=== PATIENT | female | born 1960 | race Two or more races ===

== ENCOUNTER 2020-12-30 13:48 | Inpatient (IN) | payer MEDICAID, OTHER ==
[~2020-12-30] VITALS: Ht 157.5 cm; Wt 91.8 kg
[2020-12-30 14:27] LABS: Basophils # (auto) 0 10 ^3/uL (0-0.2); Lymphocytes # (auto) 1.2 10 ^3/uL (0.4-5.4); Monocytes # (auto) 0.4 10 ^3/uL (0-1.3); Neutrophils % (auto) 61.1 % (37.0-80.0)
[2020-12-30 14:29] LABS: Basophils % (auto) 0.5 % (0.0-2.0); Eosinophils # (auto) 0.1 10 ^3/uL (0-0.8); Eosinophils % (auto) 1.2 % (0.0-7.0); Lymphocytes % (auto) 27.6 % (10.0-50.0); Mean Corpuscular Hemoglobin 33.1 pg (28.0-32.0); Mean Corpuscular Hgb Conc. 33.1 g/dL (32.0-36.0); Mean Corpuscular Volume 99.8 fL (80.0-100.0); Monocytes % (auto) 9.6 % (0.0-12.0); Neutrophils # (auto) 2.8 10 ^3/uL (1.6-8.6); Nucleated Red Blood Cells % 0.1 %; Red Blood Cells 2.11 10^6/uL (4.0-5.20); White Blood Cell 4.5 10^3/uL (4.4-10.8)
[2020-12-30 14:47] LABS: Red Cell Distribution Width 21.3 % (11.8-14.3)
[2020-12-30 14:48] LABS: Albumin 2.8 g/dL (3.4-5.0); Calcium 8.5 mg/dL (8.5-10.1); Potassium 4.9 mmol/L (3.5-5.1)
[2020-12-30 14:54] LABS: BUN/Creatinine Ratio 9.2; Bilirubin, Total 0.5 mg/dL (0.2-1.0); CRP High Sensitivity 0.49 mg/dL (< 0.3); Total Protein 6.4 g/dL (6.4-8.2)
[2020-12-30] MEDS ORDERED: ACETAMINOPHEN 500 MG TAB PO PRN (20:45)
[2020-12-30] MEDS ORDERED: DOCUSATE SOD 100 MG CAP PO PRN (20:45)
[2020-12-30] MEDS ORDERED: ALBUTEROL SULF HFA 90MCG INH 200DOSE IN PRN (20:45)
[2020-12-30] MEDS ORDERED: ACETAMINOPHEN 325 MG TAB PO PRN ×2 (20:45)
[2020-12-30] MEDS ORDERED: MORPHINE SULFATE INJECTION 2 MG/ML SYRG IV PRN (20:45)
[2020-12-30] MEDS ORDERED: NITROGLYCERIN 0.4 MG SL TAB SL PRN (20:45)
[2020-12-30] MEDS ORDERED: DEXTROSE (50%) 50ML SYRG IV PRN (20:45)
[2020-12-30] MEDS: DOXYCYCLINE 100MG/250ML 250 ML IV SCH (23:55)
[2020-12-31] MEDS: InsuLIN REG 1unit/0.01ml Soln (100units/ml) SC SCH ×5 (00:03→21:46)
[2020-12-31] MEDS: ACCU-CHEK COMFORT CURVE STRIP VI SCH ×5 (00:03→21:44)
[2020-12-31] MEDS: MORPHINE SULFATE 4 MG/ML SYR/VIAL IV PRN ×4 (01:02→19:48)
[2020-12-31 03:42] VITALS: BP 135/90
[2020-12-31] MEDS: HYDROcodone-ACET 5/325MG TAB PO PRN ×2 (03:45→08:00)
[2020-12-31] MEDS: ONDANSETRON HCL 4 MG/2 ML VIAL IV PRN ×2 (06:23→15:23)
[2020-12-31 07:45] VITALS: BP 163/105
[2020-12-31 10:08] LABS: Albumin 2.8 g/dL (3.4-5.0); Basophils # (auto) 0 10 ^3/uL (0-0.2); Basophils % (auto) 0.8 % (0.0-2.0); Calcium 8.5 mg/dL (8.5-10.1); Eosinophils # (auto) 0.1 10 ^3/uL (0-0.8); Eosinophils % (auto) 1.7 % (0.0-7.0); Hematocrit 23.8 % (36.0-46.0); Hemoglobin 8.1 g/dL (12.2-16.2); Lymphocytes # (auto) 1.3 10 ^3/uL (0.4-5.4); Lymphocytes % (auto) 26.5 % (10.0-50.0); Mean Corpuscular Hemoglobin 33.7 pg (28.0-32.0); Mean Corpuscular Hgb Conc. 34.1 g/dL (32.0-36.0); Mean Corpuscular Volume 98.9 fL (80.0-100.0); Monocytes # (auto) 0.4 10 ^3/uL (0-1.3); Monocytes % (auto) 8.6 % (0.0-12.0); Neutrophils % (auto) 62.4 % (37.0-80.0); Nucleated Red Blood Cells % 0.2 %; Potassium 5.2 mmol/L (3.5-5.1); Red Cell Distribution Width 20.1 % (11.8-14.3); White Blood Cell 4.9 10^3/uL (4.4-10.8)
[2020-12-31 10:11] LABS: Bilirubin, Total 0.6 mg/dL (0.2-1.0); Total Protein 6.7 g/dL (6.4-8.2)
[2020-12-31] MEDS: DOXYCYCLINE 100MG/250ML 250 ML IV SCH ×2 (10:59→21:44)
[2020-12-31] MEDS: CHOLECALCIFEROL (VITD3) 2,000 UNIT CAP/TAB PO SCH (11:00)
[2020-12-31] MEDS: ASCORBIC ACID 1,000 MG TAB PO SCH (11:00)
[2020-12-31] MEDS: MULTIPLE VITAMIN TAB PO SCH (11:00)
[2020-12-31] MEDS ORDERED: DEXTROSE (50%) 50ML SYRG IV ONE (11:15)
[2020-12-31] MEDS ORDERED: BUMETANIDE 2.5mg/10ml (0.25 mg/ml) INJ IV ONE (11:15)
[2020-12-31] MEDS ORDERED: CALCIUM GLUC 1,000mg/50ml-NS 50 ML IV ONE (11:15)
[2020-12-31] MEDS ORDERED: InsuLIN REG 1unit/0.01ml Soln (100units/ml) IV ONE (11:15)
[2020-12-31] MEDS: SODIUM ZIRCONIUM CYCL 10 GM PAK PO SCH ×3 (12:18→21:44)
[2020-12-31] MEDS ORDERED: BUMETANIDE INJECTION 10 ML ONE (12:22)
[2020-12-31] MEDS ORDERED: hydrALAZINE HCL 20 MG/ML VL ONE (16:12)
[2020-12-31] MEDS: hydrALAZINE HCL 20 MG/ML VL IV PRN (16:15)
[2020-12-31 20:00] VITALS: BP 150/89
[2020-12-31 22:00] VITALS: BP 150/89
[2021-01-01] MEDS: MORPHINE SULFATE 4 MG/ML SYR/VIAL IV PRN ×5 (00:07→21:34)
[2021-01-01] MEDS: HYDROcodone-ACET 5/325MG TAB PO PRN ×4 (02:19→20:36)
[2021-01-01 05:00] VITALS: BP 144/84
[2021-01-01] MEDS: SODIUM ZIRCONIUM CYCL 10 GM PAK PO SCH ×3 (05:33→21:33)
[2021-01-01 06:12] LABS: Calcium 8.7 mg/dL (8.5-10.1); Potassium 4.9 mmol/L (3.5-5.1)
[2021-01-01 06:13] LABS: BUN/Creatinine Ratio 10.7
[2021-01-01] MEDS: ACCU-CHEK COMFORT CURVE STRIP VI SCH ×4 (06:17→21:33)
[2021-01-01] MEDS: InsuLIN REG 1unit/0.01ml Soln (100units/ml) SC SCH ×4 (06:17→21:49)
[2021-01-01] MEDS ORDERED: SODIUM CHL 0.9% 1000 ML BAG XX ONE (07:00)
[2021-01-01 09:00] VITALS: BP 144/91
[2021-01-01] MEDS: LEVOTHYROXINE SODIUM 100 MCG/5 ML INJ IV SCH (09:13)
[2021-01-01] MEDS: DOXYCYCLINE 100MG/250ML 250 ML IV SCH ×2 (09:13→21:32)
[2021-01-01] MEDS: ASCORBIC ACID 1,000 MG TAB PO SCH (09:14)
[2021-01-01] MEDS: MULTIPLE VITAMIN TAB PO SCH (09:14)
[2021-01-01] MEDS: CHOLECALCIFEROL (VITD3) 2,000 UNIT CAP/TAB PO SCH (09:14)
[2021-01-01] MEDS ORDERED: IOHEXOL 350 MG/ML 100ML IJ ONE (10:22)
[2021-01-01 13:00] VITALS: BP 146/89
[2021-01-01] MEDS ORDERED: BUMETANIDE 2.5mg/10ml (0.25 mg/ml) INJ IV ONE (13:45)
[2021-01-01 16:53] VITALS: BP 159/93
[2021-01-01] MEDS ORDERED: EPOETIN ALFA-EPBX 10,000 UNIT/1ML VIAL SC ONE ×2 (21:00)
[2021-01-01 22:00] VITALS: BP 139/80
[2021-01-02] MEDS: HYDROcodone-ACET 5/325MG TAB PO PRN ×4 (00:24→18:23)
[2021-01-02] MEDS: MORPHINE SULFATE 4 MG/ML SYR/VIAL IV PRN ×5 (01:43→20:36)
[2021-01-02 05:00] VITALS: BP 157/98
[2021-01-02 05:47] LABS: Eosinophils # (auto) 0.1 10 ^3/uL (0-0.8); Lymphocytes # (auto) 1.1 10 ^3/uL (0.4-5.4); Monocytes # (auto) 0.4 10 ^3/uL (0-1.3); Nucleated Red Blood Cells % 0.1 %
[2021-01-02 05:49] LABS: Basophils # (auto) 0 10 ^3/uL (0-0.2); Basophils % (auto) 0.9 % (0.0-2.0); Eosinophils % (auto) 1.8 % (0.0-7.0); Hematocrit 23.7 % (36.0-46.0); Hemoglobin 8.1 g/dL (12.2-16.2); Lymphocytes % (auto) 22.1 % (10.0-50.0); Mean Corpuscular Hemoglobin 33.3 pg (28.0-32.0); Mean Corpuscular Hgb Conc. 34.3 g/dL (32.0-36.0); Monocytes % (auto) 8.5 % (0.0-12.0); Neutrophils # (auto) 3.3 10 ^3/uL (1.6-8.6); Neutrophils % (auto) 66.7 % (37.0-80.0); Red Blood Cells 2.44 10^6/uL (4.0-5.20); Red Cell Distribution Width 19.1 % (11.8-14.3); White Blood Cell 4.9 10^3/uL (4.4-10.8)
[2021-01-02] MEDS: SODIUM ZIRCONIUM CYCL 10 GM PAK PO SCH (06:31)
[2021-01-02] MEDS ORDERED: SODIUM CHL 0.9% 1000 ML BAG XX ONE (07:00)
[2021-01-02] MEDS: InsuLIN REG 1unit/0.01ml Soln (100units/ml) SC SCH ×4 (07:00→21:41)
[2021-01-02] MEDS: ACCU-CHEK COMFORT CURVE STRIP VI SCH ×4 (07:02→21:33)
[2021-01-02 09:00] VITALS: BP 162/97
[2021-01-02] MEDS: LEVOTHYROXINE SODIUM 100 MCG/5 ML INJ IV SCH (09:03)
[2021-01-02] MEDS: DOXYCYCLINE 100MG/250ML 250 ML IV SCH ×2 (09:03→21:33)
[2021-01-02] MEDS: MULTIPLE VITAMIN TAB PO SCH (09:04)
[2021-01-02] MEDS: ASCORBIC ACID 1,000 MG TAB PO SCH (09:04)
[2021-01-02] MEDS: CHOLECALCIFEROL (VITD3) 2,000 UNIT CAP/TAB PO SCH (09:04)
[2021-01-02 10:22] LABS: Hepatitis A Ab IgM Negative; Hepatitis B Core IgM Negative; Hepatitis B Surface Antigen Negative (Negative); Hepatitis C Antibody Negative (Negative)
[2021-01-02 12:55] VITALS: BP 159/99
[2021-01-02 17:00] VITALS: BP 148/98
[2021-01-02] MEDS ORDERED: EPOETIN ALFA-EPBX 10,000 UNIT/1ML VIAL SC ONE ×2 (21:00)
[2021-01-02] MEDS: LACTULOSE 20Gm/30ML SOLN PO PRN (21:33)
[2021-01-02 22:00] VITALS: BP 150/88
[2021-01-03] MEDS: MORPHINE SULFATE 4 MG/ML SYR/VIAL IV PRN ×5 (01:13→20:52)
[2021-01-03 05:00] VITALS: BP 134/85
[2021-01-03 05:42] LABS: Basophils # (auto) 0 10 ^3/uL (0-0.2); Eosinophils # (auto) 0.1 10 ^3/uL (0-0.8); Hemoglobin 7.9 g/dL (12.2-16.2); Lymphocytes # (auto) 0.9 10 ^3/uL (0.4-5.4); Monocytes # (auto) 0.4 10 ^3/uL (0-1.3); Neutrophils # (auto) 4.1 10 ^3/uL (1.6-8.6); White Blood Cell 5.5 10^3/uL (4.4-10.8)
[2021-01-03 05:49] LABS: Basophils % (auto) 0.9 % (0.0-2.0); Eosinophils % (auto) 1.3 % (0.0-7.0); Lymphocytes % (auto) 15.7 % (10.0-50.0); Mean Corpuscular Hemoglobin 33.5 pg (28.0-32.0); Mean Corpuscular Hgb Conc. 34.4 g/dL (32.0-36.0); Mean Corpuscular Volume 97.3 fL (80.0-100.0); Monocytes % (auto) 7.1 % (0.0-12.0); Red Blood Cells 2.36 10^6/uL (4.0-5.20); Red Cell Distribution Width 18.9 % (11.8-14.3)
[2021-01-03 06:19] LABS: Potassium 4.4 mmol/L (3.5-5.1)
[2021-01-03] MEDS: ACCU-CHEK COMFORT CURVE STRIP VI SCH ×4 (06:19→21:59)
[2021-01-03] MEDS: InsuLIN REG 1unit/0.01ml Soln (100units/ml) SC SCH ×4 (06:19→21:58)
[2021-01-03 06:25] LABS: Albumin 2.6 g/dL (3.4-5.0); BUN/Creatinine Ratio 10.9; Calcium 8.7 mg/dL (8.5-10.1)
[2021-01-03 06:31] LABS: Bilirubin, Total 0.5 mg/dL (0.2-1.0); Total Protein 6.5 g/dL (6.4-8.2)
[2021-01-03 09:00] VITALS: BP 151/98
[2021-01-03] MEDS: LEVOTHYROXINE SODIUM 100 MCG/5 ML INJ IV SCH (10:08)
[2021-01-03] MEDS: ASCORBIC ACID 1,000 MG TAB PO SCH (10:09)
[2021-01-03] MEDS: CHOLECALCIFEROL (VITD3) 2,000 UNIT CAP/TAB PO SCH (10:09)
[2021-01-03] MEDS: MULTIPLE VITAMIN TAB PO SCH (10:09)
[2021-01-03] MEDS: DOXYCYCLINE 100MG/250ML 250 ML IV SCH ×2 (10:09→21:59)
[2021-01-03] MEDS: LACTULOSE 20Gm/30ML SOLN PO PRN (12:51)
[2021-01-03 13:00] VITALS: BP 151/90
[2021-01-03] MEDS: hydrALAZINE HCL 20 MG/ML VL IV PRN (16:22)
[2021-01-03] MEDS: ONDANSETRON HCL 4 MG/2 ML VIAL IV PRN (16:54)
[2021-01-03 17:00] VITALS: BP 154/102
[2021-01-03 22:00] VITALS: BP 129/67
[2021-01-04] MEDS: MORPHINE SULFATE 4 MG/ML SYR/VIAL IV PRN ×6 (00:32→23:22)
[2021-01-04] MEDS: HYDROcodone-ACET 5/325MG TAB PO PRN ×3 (01:58→21:46)
[2021-01-04 05:30] VITALS: BP 134/77
[2021-01-04] MEDS: InsuLIN REG 1unit/0.01ml Soln (100units/ml) SC SCH ×4 (06:29→22:00)
[2021-01-04] MEDS: ACCU-CHEK COMFORT CURVE STRIP VI SCH ×4 (06:29→21:46)
[2021-01-04 09:08] VITALS: BP 156/88
[2021-01-04] MEDS: MULTIPLE VITAMIN TAB PO SCH (10:11)
[2021-01-04] MEDS: ASCORBIC ACID 1,000 MG TAB PO SCH (10:11)
[2021-01-04] MEDS: CHOLECALCIFEROL (VITD3) 2,000 UNIT CAP/TAB PO SCH (10:11)
[2021-01-04] MEDS: DOXYCYCLINE 100MG/250ML 250 ML IV SCH (10:11)
[2021-01-04] MEDS: LEVOTHYROXINE SODIUM 100 MCG/5 ML INJ IV SCH (11:34)
[2021-01-04 13:08] VITALS: BP 150/107
[2021-01-04] MEDS: amLODIPine BESYLATE 5 MG TAB PO SCH (14:13)
[2021-01-04 17:00] VITALS: BP 142/90
[2021-01-04 22:00] VITALS: BP 128/80
[2021-01-04] MEDS: ONDANSETRON HCL 4 MG/2 ML VIAL IV PRN (23:56)
[2021-01-05] MEDS: MORPHINE SULFATE 4 MG/ML SYR/VIAL IV PRN ×6 (02:28→21:21)
[2021-01-05 05:00] VITALS: BP 139/78
[2021-01-05] MEDS: ONDANSETRON HCL 4 MG/2 ML VIAL IV PRN (05:32)
[2021-01-05] MEDS: ACCU-CHEK COMFORT CURVE STRIP VI SCH ×4 (05:57→21:56)
[2021-01-05 06:06] LABS: Potassium 5.5 mmol/L (3.5-5.1)
[2021-01-05 06:09] LABS: BUN/Creatinine Ratio 13.1
[2021-01-05] MEDS: InsuLIN REG 1unit/0.01ml Soln (100units/ml) SC SCH ×4 (06:43→22:00)
[2021-01-05 09:00] VITALS: BP 141/85
[2021-01-05] MEDS ORDERED: amLODIPine BESYLATE 5 MG TAB PO SCH (10:00)
[2021-01-05] MEDS: LEVOTHYROXINE SODIUM 100 MCG/5 ML INJ IV SCH (10:45)
[2021-01-05] MEDS: ISOSORBIDE MONONITRATE ER 60 MG TAB PO SCH (10:46)
[2021-01-05] MEDS: CHOLECALCIFEROL (VITD3) 2,000 UNIT CAP/TAB PO SCH (10:47)
[2021-01-05] MEDS: ASCORBIC ACID 1,000 MG TAB PO SCH (10:47)
[2021-01-05] MEDS: amLODIPine BESYLATE 5 MG TAB PO SCH (10:48)
[2021-01-05] MEDS: MULTIPLE VITAMIN TAB PO SCH (10:48)
[2021-01-05] MEDS: METOPROLOL TARTRATE 50 MG TAB PO SCH ×2 (10:49→21:55)
[2021-01-05] MEDS: HYDROcodone-ACET 5/325MG TAB PO PRN ×2 (11:45→16:35)
[2021-01-05 13:00] VITALS: BP 121/82
[2021-01-05] MEDS: SODIUM ZIRCONIUM CYCL 10 GM PAK PO SCH ×3 (13:08→21:56)
[2021-01-05 17:00] VITALS: BP 149/66
[2021-01-05 20:00] VITALS: BP 147/93
[2021-01-05 22:00] VITALS: BP 147/93
[2021-01-06] MEDS: MORPHINE SULFATE 4 MG/ML SYR/VIAL IV PRN ×5 (00:28→17:47)
[2021-01-06] MEDS: HYDROcodone-ACET 5/325MG TAB PO PRN ×2 (02:44→09:00)
[2021-01-06 05:00] VITALS: BP 129/70
[2021-01-06] MEDS: SODIUM ZIRCONIUM CYCL 10 GM PAK PO SCH (06:00)
[2021-01-06 06:08] LABS: Hematocrit 21.7 % (36.0-46.0); Hemoglobin 7.2 g/dL (12.2-16.2)
[2021-01-06] MEDS ORDERED: SODIUM CHL 0.9% 1000 ML BAG XX ONE (07:00)
[2021-01-06] MEDS: ACCU-CHEK COMFORT CURVE STRIP VI SCH ×3 (07:00→18:10)
[2021-01-06] MEDS: InsuLIN REG 1unit/0.01ml Soln (100units/ml) SC SCH ×3 (07:00→17:00)
[2021-01-06 09:00] VITALS: BP 136/79
[2021-01-06] MEDS ORDERED: LEVOTHYROXINE SODIUM 100 MCG/5 ML INJ IV SCH (10:00)
[2021-01-06] MEDS: CHOLECALCIFEROL (VITD3) 2,000 UNIT CAP/TAB PO SCH (10:32)
[2021-01-06] MEDS: MULTIPLE VITAMIN TAB PO SCH (10:32)
[2021-01-06] MEDS: ISOSORBIDE MONONITRATE ER 60 MG TAB PO SCH (10:34)
[2021-01-06] MEDS: amLODIPine BESYLATE 5 MG TAB PO SCH (10:36)
[2021-01-06] MEDS: ASCORBIC ACID 1,000 MG TAB PO SCH (10:42)
[2021-01-06] MEDS: METOPROLOL TARTRATE 50 MG TAB PO SCH (10:43)
[2021-01-06] MEDS ORDERED: SODIUM ZIRCONIUM CYCL 10 GM PAK PO ONE (12:15)
[2021-01-06 13:00] VITALS: BP 140/83
[2021-01-06 17:00] VITALS: BP 133/95
[2021-01-06 19:21] VITALS: BP 122/80
[2021-01-06] MEDS ORDERED: EPOETIN ALFA-EPBX 10,000 UNIT/1ML VIAL SC ONE (21:00)
[2021-01-06] MEDS ORDERED: SODIUM ZIRCONIUM CYCL 10 GM PAK PO SCH (22:00)
== END 2021-01-06 20:50 | disposition home health service (06) | DRG 427 ==
LOC: ER 13:48 → EDBD 13:48 → TELE 20:44 → TELE-WESTW 12-31 18:27
PROVIDERS: ADMIT Nurse Practitioner; ATTEND Nurse Practitioner
PROC: 30233N1 Transfusion of Nonautologous Red Blood Cells into Peripheral Vein, Percutaneous Approach (ICD-10-PCS; 2020-12-31)
PROC: 4B02XTZ Measurement of Cardiac Defibrillator, External Approach (ICD-10-PCS; principal; 2021-01-02)
PROC: 5A1D70Z Performance of Urinary Filtration, Intermittent, Less than 6 Hours Per Day (ICD-10-PCS; 2021-01-02)
DX: E03.9 Hypothyroidism, unspecified (principal); J96.21 Acute and chronic respiratory failure with hypoxia; I13.2 Hypertensive heart and chronic kidney disease with heart failure and with stage 5 chronic kidney disease, or end stage renal disease; J18.9 Pneumonia, unspecified organism; E44.1 Mild protein-calorie malnutrition; N18.6 End stage renal disease; D63.1 Anemia in chronic kidney disease; J44.0 Chronic obstructive pulmonary disease with (acute) lower respiratory infection; E11.22 Type 2 diabetes mellitus with diabetic chronic kidney disease; E11.42 Type 2 diabetes mellitus with diabetic polyneuropathy; E87.5 Hyperkalemia; M32.9 Systemic lupus erythematosus, unspecified; E78.5 Hyperlipidemia, unspecified; E66.9 Obesity, unspecified; F12.90 Cannabis use, unspecified, uncomplicated; F17.210 Nicotine dependence, cigarettes, uncomplicated; I25.10 Atherosclerotic heart disease of native coronary artery without angina pectoris; I50.32 Chronic diastolic (congestive) heart failure; J98.11 Atelectasis; G89.29 Other chronic pain; Z20.822 Contact with and (suspected) exposure to COVID-19; Z74.01 Bed confinement status; Z79.899 Other long term (current) drug therapy; Z91.15 Patient's noncompliance with renal dialysis; Z86.711 Personal history of pulmonary embolism; Z86.73 Personal history of transient ischemic attack (TIA), and cerebral infarction without residual deficits; Z87.442 Personal history of urinary calculi; Z68.37 Body mass index [BMI] 37.0-37.9, adult; Z87.81 Personal history of (healed) traumatic fracture; Z90.49 Acquired absence of other specified parts of digestive tract; Z90.710 Acquired absence of both cervix and uterus; Z91.14 Patient's other noncompliance with medication regimen; Z95.810 Presence of automatic (implantable) cardiac defibrillator; Z99.2 Dependence on renal dialysis; Z91.018 Allergy to other foods
CPT/HCPCS: 36415; 71045; 71275; 80048; 80053; 80074; 82306; 82728; 82962; 83036; 83615; 83735; 84132; 84443; 84484; 85014; 85018; 85025; 85379; 86141; 86710; 86850; 86900; 86901; 86920; 87040; 87081; 87426; 90935; 93005; G0378; J1642; J1815; J2405; J3490

== ENCOUNTER 2021-01-27 19:17 | Inpatient (IN) | payer MEDICAID ==
[~2021-01-27] VITALS: Ht 165.1 cm; Wt 100.4 kg
[2021-01-27] MEDS ORDERED: NOREPINEPHRINE 8 MG/250ML KIT 250 ML IV ONE ×2 (19:52→19:55)
[2021-01-27] MEDS ORDERED: NOREPINEPHRINE 8 MG/250ML KIT 250 ML IV SCH (20:00)
[2021-01-27] MEDS ORDERED: LORazepam 2MG/ML-1ML VIAL ONE ×3 (21:38→22:30)
[2021-01-27] MEDS ORDERED: InsuLIN REG 1unit/0.01ml Soln (100units/ml) ONE (21:44)
[2021-01-27] MEDS ORDERED: FUROSEMIDE 40 MG/4 ML VIAL IV ONE (21:45)
[2021-01-27] MEDS ORDERED: ALBUTEROL SULF 2.5 MG/0.5ML(0.5%) NEB SOLN NEB ONE (21:45)
[2021-01-27] MEDS ORDERED: SODIUM ZIRCONIUM CYCL 10 GM PAK PO ONE (21:45)
[2021-01-27] MEDS ORDERED: DEXTROSE (50%) 50ML SYRG IV ONE ×2 (21:45)
[2021-01-27] MEDS ORDERED: CALCIUM GLUC 1,000mg/50ml-NS 50 ML IV ONE ×3 (21:45→21:47)
[2021-01-27] MEDS ORDERED: SODIUM BICARBONATE 8.4% INJ 50ML SYRINGE IV ONE ×2 (21:45)
[2021-01-27] MEDS ORDERED: InsuLIN REG 1unit/0.01ml Soln (100units/ml) IV ONE ×2 (21:45)
[2021-01-27] MEDS ORDERED: SODIUM BICARBONATE 8.4 % INJ 50ML VIAL IV ONE (21:48)
[2021-01-27 21:55] LABS: Basophils # (auto) 0 10 ^3/uL (0-0.2); Eosinophils # (auto) 0 10 ^3/uL (0-0.8); Lymphocytes # (auto) 1.1 10 ^3/uL (0.4-5.4); Monocytes # (auto) 0.1 10 ^3/uL (0-1.3); Red Blood Cells 2.56 10^6/uL (4.0-5.20)
[2021-01-27 21:57] LABS: Basophils % (auto) 0.4 % (0.0-2.0); Eosinophils % (auto) 0.1 % (0.0-7.0); Hematocrit 24.9 % (36.0-46.0); Hemoglobin 8.4 g/dL (12.2-16.2); Lymphocytes % (auto) 27.5 % (10.0-50.0); Mean Corpuscular Hemoglobin 32.7 pg (28.0-32.0); Mean Corpuscular Hgb Conc. 33.7 g/dL (32.0-36.0); Mean Corpuscular Volume 97.2 fL (80.0-100.0); Monocytes % (auto) 3.7 % (0.0-12.0); Neutrophils # (auto) 2.6 10 ^3/uL (1.6-8.6); Neutrophils % (auto) 68.3 % (37.0-80.0); Nucleated Red Blood Cells % 0.7 %; White Blood Cell 3.8 10^3/uL (4.4-10.8)
[2021-01-27] MEDS ORDERED: LORazepam 2MG/ML-1ML VIAL IV ONE ×2 (22:00→22:45)
[2021-01-27 22:09] LABS: INR 1.54 (0.9-1.15)
[2021-01-27 22:14] LABS: Albumin 2.2 g/dL (3.4-5.0); Calcium 6.6 mg/dL (8.5-10.1); Potassium 3.4 mmol/L (3.5-5.1)
[2021-01-27 22:20] LABS: BUN/Creatinine Ratio 3.9; Bilirubin, Total 0.4 mg/dL (0.2-1.0); Phosphorus 2.9 mg/dL (2.5-4.90); Total Protein 5.9 g/dL (6.4-8.2)
[2021-01-27] MEDS ORDERED: MORPHINE SULFATE 4 MG/ML SYR/VIAL IV PRN (23:15)
[2021-01-27] MEDS ORDERED: ONDANSETRON HCL 4 MG/2 ML VIAL IV PRN (23:15)
[2021-01-27] MEDS ORDERED: MORPHINE SULFATE INJECTION 2 MG/ML SYRG IV PRN (23:15)
[2021-01-27] MEDS ORDERED: NITROGLYCERIN 0.4 MG SL TAB SL PRN (23:15)
[2021-01-27] MEDS ORDERED: DOCUSATE SOD 100 MG CAP PO PRN (23:15)
[2021-01-28 02:11] LABS: Urine Bacteria NONE SEEN /hpf (None Seen); Urine Blood 2+ /uL (Negative); Urine WBC 1680 /hpf (0 - 5); Urine WBC Clumps PRESENT /hpf (None Seen)
[2021-01-28 02:13] LABS: Urine Specific Gravity 1.021 (1.001-1.035)
[2021-01-28] MEDS ORDERED: DEXTROSE (50%) 50ML SYRG IV ONE ×2 (03:45)
[2021-01-28 04:30] LABS: Basophils # (auto) 0 10 ^3/uL (0-0.2); Basophils % (auto) 0.3 % (0.0-2.0); Eosinophils # (auto) 0 10 ^3/uL (0-0.8); Eosinophils % (auto) 0.1 % (0.0-7.0); Hematocrit 28.2 % (36.0-46.0); Hemoglobin 9.3 g/dL (12.2-16.2); Lymphocytes # (auto) 0.9 10 ^3/uL (0.4-5.4); Lymphocytes % (auto) 25.9 % (10.0-50.0); Mean Corpuscular Hemoglobin 31.8 pg (28.0-32.0); Mean Corpuscular Hgb Conc. 32.9 g/dL (32.0-36.0); Mean Corpuscular Volume 96.7 fL (80.0-100.0); Monocytes # (auto) 0.2 10 ^3/uL (0-1.3); Monocytes % (auto) 4.6 % (0.0-12.0); Neutrophils # (auto) 2.4 10 ^3/uL (1.6-8.6); Neutrophils % (auto) 69.1 % (37.0-80.0); Red Blood Cells 2.91 10^6/uL (4.0-5.20); Red Cell Distribution Width 17.9 % (11.8-14.3); White Blood Cell 3.5 10^3/uL (4.4-10.8)
[2021-01-28 04:48] LABS: Albumin 2.1 g/dL (3.4-5.0); Calcium 6.6 mg/dL (8.5-10.1); Potassium 3.2 mmol/L (3.5-5.1)
[2021-01-28 04:52] LABS: BUN/Creatinine Ratio 4.2; Bilirubin, Total 0.4 mg/dL (0.2-1.0); Total Protein 5.9 g/dL (6.4-8.2)
[2021-01-28 17:00] VITALS: BP 103/70
[2021-01-28 22:00] VITALS: BP 98/59
[2021-01-29 05:00] VITALS: BP 111/81
[2021-01-29 09:00] VITALS: BP 102/69
[2021-01-29] MEDS ORDERED: AZITHROMYCIN 500MG/ 250ML 250 ML IV SCH (10:00)
[2021-01-29 10:24] LABS: Basophils # (auto) 0 10 ^3/uL (0-0.2); Basophils % (auto) 0.3 % (0.0-2.0); Eosinophils # (auto) 0 10 ^3/uL (0-0.8); Eosinophils % (auto) 0.2 % (0.0-7.0); Hematocrit 26.7 % (36.0-46.0); Lymphocytes # (auto) 0.7 10 ^3/uL (0.4-5.4); Lymphocytes % (auto) 19.2 % (10.0-50.0); Mean Corpuscular Hemoglobin 32.1 pg (28.0-32.0); Mean Corpuscular Hgb Conc. 33.5 g/dL (32.0-36.0); Mean Corpuscular Volume 95.6 fL (80.0-100.0); Monocytes # (auto) 0.1 10 ^3/uL (0-1.3); Monocytes % (auto) 2.9 % (0.0-12.0); Neutrophils # (auto) 2.6 10 ^3/uL (1.6-8.6); Neutrophils % (auto) 77.4 % (37.0-80.0); Nucleated Red Blood Cells % 0.4 %; Red Cell Distribution Width 17.8 % (11.8-14.3); White Blood Cell 3.4 10^3/uL (4.4-10.8)
[2021-01-29 10:38] LABS: Albumin 2.3 g/dL (3.4-5.0); Calcium 6.5 mg/dL (8.5-10.1); Potassium 3.9 mmol/L (3.5-5.1)
[2021-01-29 10:43] LABS: BUN/Creatinine Ratio 5.7; Bilirubin, Total 0.4 mg/dL (0.2-1.0); Total Protein 5.8 g/dL (6.4-8.2)
[2021-01-29 13:00] VITALS: BP 80/52
[2021-01-29 15:54] VITALS: BP 84/55
[2021-01-29 17:45] VITALS: BP 99/62
[2021-01-29 22:00] VITALS: BP 93/63
[2021-01-30 05:00] VITALS: BP 109/73
[2021-01-30 09:00] VITALS: BP 120/73
[2021-01-30] MEDS ORDERED: HEPARIN SODIUM (PORCINE) 5000 UNITS/ML 1ML VIAL SC SCH (10:00)
[2021-01-30] MEDS ORDERED: DOXYCYCLINE 100 MG TAB/CAP PO ONE (10:30)
[2021-01-30] MEDS: DexAMETHasone SOD PHOS 10MG/1ML VIAL INJ IV SCH (10:50)
[2021-01-30 13:00] VITALS: BP 113/69
[2021-01-30 16:50] VITALS: BP 126/75
[2021-01-30] MEDS: DOXYCYCLINE 100 MG TAB/CAP PO SCH (21:16)
[2021-01-30 22:00] VITALS: BP 104/66
[2021-01-31 05:00] VITALS: BP 99/66
[2021-01-31 09:00] VITALS: BP 119/80
[2021-01-31] MEDS: DOXYCYCLINE 100 MG TAB/CAP PO SCH ×2 (09:12→22:07)
[2021-01-31] MEDS: LEVOTHYROXINE SODIUM 100 MCG/5 ML INJ IV SCH (09:12)
[2021-01-31] MEDS: DexAMETHasone SOD PHOS 10MG/1ML VIAL INJ IV SCH (09:12)
[2021-01-31] MEDS: ZINC SULFATE 220mg CAP or TAB PO SCH (09:12)
[2021-01-31] MEDS: CHOLECALCIFEROL (VITD3) 1,000UNIT=25mCg TAB PO SCH (09:13)
[2021-01-31] MEDS: ASCORBIC ACID 500 MG TAB PO SCH (09:13)
[2021-01-31 13:00] VITALS: BP 124/77
[2021-01-31 17:00] VITALS: BP 116/72
[2021-01-31 22:00] VITALS: BP 100/64
[2021-01-31 22:19] LABS: Albumin 2.1 g/dL (3.4-5.0); Calcium 7.2 mg/dL (8.5-10.1); Potassium 4.1 mmol/L (3.5-5.1)
[2021-01-31 22:22] LABS: BUN/Creatinine Ratio 7.2; Bilirubin, Total 0.5 mg/dL (0.2-1.0); Total Protein 6.1 g/dL (6.4-8.2)
[2021-02-01 05:00] VITALS: BP 122/85
[2021-02-01 08:00] VITALS: BP 117/68
[2021-02-01 09:00] VITALS: BP 92/63
[2021-02-01] MEDS: DOXYCYCLINE 100 MG TAB/CAP PO SCH ×2 (10:12→21:53)
[2021-02-01] MEDS: LEVOTHYROXINE SODIUM 100 MCG/5 ML INJ IV SCH (10:12)
[2021-02-01] MEDS: ZINC SULFATE 220mg CAP or TAB PO SCH (10:12)
[2021-02-01] MEDS: DexAMETHasone SOD PHOS 10MG/1ML VIAL INJ IV SCH (10:12)
[2021-02-01] MEDS: CHOLECALCIFEROL (VITD3) 1,000UNIT=25mCg TAB PO SCH (10:13)
[2021-02-01] MEDS: ASCORBIC ACID 500 MG TAB PO SCH (10:13)
[2021-02-01 13:00] VITALS: BP 114/76
[2021-02-01 17:00] VITALS: BP 105/70
[2021-02-01] MEDS: HYDROcodone-ACET 5/325MG TAB PO PRN (21:53)
[2021-02-01 22:00] VITALS: BP 103/74
[2021-02-02] VITALS (7 sets, daily range): BP systolic 115–137; BP diastolic 68–96
[2021-02-02] MEDS: TEMAZEPAM 15 MG CAP PO PRN (00:27)
[2021-02-02 06:16] LABS: Hematocrit 30.7 % (36.0-46.0); Hemoglobin 10.1 g/dL (12.2-16.2); Mean Corpuscular Hemoglobin 31.8 pg (28.0-32.0); Mean Corpuscular Hgb Conc. 32.8 g/dL (32.0-36.0); Red Blood Cells 3.17 10^6/uL (4.0-5.20)
[2021-02-02 06:17] LABS: Potassium 4.6 mmol/L (3.5-5.1)
[2021-02-02 06:24] LABS: BUN/Creatinine Ratio 7.8; Calcium 7.3 mg/dL (8.5-10.1)
[2021-02-02 06:39] LABS: Basophils % (manual) 0 (0.0-2.0); Blast Cells 0; Eosinophils % (manual) 0 (0-7); Metamyelocytes % 0; Myelocytes % 0; Promyelocytes % 0
[2021-02-02 08:35] LABS: Band Neutrophils % (manual) 9; Lymphocytes % (manual) 4 (10.0-50.0); Monocytes % (manual) 2 (0-12); Reactive Lymphocytes 1
[2021-02-02] MEDS: DexAMETHasone SOD PHOS 10MG/1ML VIAL INJ IV SCH (09:55)
[2021-02-02] MEDS: ASCORBIC ACID 500 MG TAB PO SCH (09:55)
[2021-02-02] MEDS: DOXYCYCLINE 100 MG TAB/CAP PO SCH ×2 (09:55→21:30)
[2021-02-02] MEDS: LEVOTHYROXINE SODIUM 100 MCG/5 ML INJ IV SCH (09:55)
[2021-02-02] MEDS: ZINC SULFATE 220mg CAP or TAB PO SCH (09:55)
[2021-02-02] MEDS: CHOLECALCIFEROL (VITD3) 1,000UNIT=25mCg TAB PO SCH (09:56)
[2021-02-02] MEDS ORDERED: HEPARIN SODIUM (PORCINE) 5000 UNITS/ML 1ML VIAL SC SCH (10:00)
[2021-02-02] MEDS ORDERED: ALBUTEROL SULF HFA 90MCG INH 200DOSE IN SCH (14:00)
[2021-02-02] MEDS ORDERED: HEPARIN 1,000 UNITS/ml 1ML VIAL IV ONE (15:00)
[2021-02-02] MEDS: HYDROcodone-ACET 5/325MG TAB PO PRN ×2 (17:34→23:13)
[2021-02-02] MEDS: FAMOTIDINE (10MG/ML) 2ML VL IV SCH (17:41)
[2021-02-03] MEDS: TEMAZEPAM 15 MG CAP PO PRN ×2 (01:47→22:36)
[2021-02-03 05:00] VITALS: BP 128/91
[2021-02-03] MEDS: ALBUTEROL SULF HFA 90MCG INH 200DOSE IN PRN ×2 (05:59→20:20)
[2021-02-03 08:55] VITALS: BP 171/116
[2021-02-03] MEDS: DexAMETHasone SOD PHOS 10MG/1ML VIAL INJ IV SCH (09:32)
[2021-02-03] MEDS: FAMOTIDINE (10MG/ML) 2ML VL IV SCH (09:32)
[2021-02-03] MEDS: ZINC SULFATE 220mg CAP or TAB PO SCH (09:32)
[2021-02-03] MEDS: LEVOTHYROXINE SODIUM 100 MCG/5 ML INJ IV SCH (09:32)
[2021-02-03] MEDS: CLOPIDOGREL BISULFATE 75 MG TAB PO SCH (09:33)
[2021-02-03] MEDS: amLODIPine BESYLATE 5 MG TAB PO SCH (09:33)
[2021-02-03] MEDS: CHOLECALCIFEROL (VITD3) 1,000UNIT=25mCg TAB PO SCH (09:34)
[2021-02-03] MEDS: ASCORBIC ACID 500 MG TAB PO SCH (09:34)
[2021-02-03] MEDS: DOXYCYCLINE 100 MG TAB/CAP PO SCH ×2 (09:34→22:20)
[2021-02-03] MEDS ORDERED: CARVEDILOL 3.125 MG TAB PO SCH (10:00)
[2021-02-03] MEDS: CARVEDILOL 12.5 MG TAB PO SCH ×2 (10:03→22:00)
[2021-02-03 12:56] VITALS: BP 133/85
[2021-02-03 16:42] VITALS: BP 132/76
[2021-02-03 22:00] VITALS: BP 110/70
[2021-02-04 05:00] VITALS: BP 142/93
[2021-02-04] MEDS ORDERED: SODIUM CHL 0.9% 1000 ML BAG XX ONE (07:00)
[2021-02-04] MEDS: ALBUTEROL SULF HFA 90MCG INH 200DOSE IN PRN (07:21)
[2021-02-04 09:00] VITALS: BP 166/103
[2021-02-04] MEDS: DOXYCYCLINE 100 MG TAB/CAP PO SCH ×3 (09:52→22:04)
[2021-02-04] MEDS: CLOPIDOGREL BISULFATE 75 MG TAB PO SCH ×2 (09:52→10:00)
[2021-02-04] MEDS: amLODIPine BESYLATE 5 MG TAB PO SCH ×2 (09:52→10:00)
[2021-02-04] MEDS: CARVEDILOL 12.5 MG TAB PO SCH ×3 (09:53→22:03)
[2021-02-04] MEDS: ZINC SULFATE 220mg CAP or TAB PO SCH ×2 (09:53→10:00)
[2021-02-04] MEDS: LEVOTHYROXINE SODIUM 100 MCG/5 ML INJ IV SCH (09:54)
[2021-02-04] MEDS: DexAMETHasone SOD PHOS 10MG/1ML VIAL INJ IV SCH (09:54)
[2021-02-04] MEDS: FAMOTIDINE (10MG/ML) 2ML VL IV SCH (09:54)
[2021-02-04] MEDS: ASCORBIC ACID 500 MG TAB PO SCH ×2 (09:54→10:00)
[2021-02-04] MEDS: CHOLECALCIFEROL (VITD3) 1,000UNIT=25mCg TAB PO SCH ×2 (09:55→10:00)
[2021-02-04 10:34] LABS: Basophils # (auto) 0 10 ^3/uL (0-0.2); Basophils % (auto) 0.2 % (0.0-2.0); Eosinophils # (auto) 0 10 ^3/uL (0-0.8); Hematocrit 30.9 % (36.0-46.0); Hemoglobin 10.3 g/dL (12.2-16.2); Lymphocytes # (auto) 0.3 10 ^3/uL (0.4-5.4); Lymphocytes % (auto) 2.8 % (10.0-50.0); Mean Corpuscular Hemoglobin 31.5 pg (28.0-32.0); Mean Corpuscular Hgb Conc. 33.2 g/dL (32.0-36.0); Mean Corpuscular Volume 94.9 fL (80.0-100.0); Monocytes # (auto) 0.1 10 ^3/uL (0-1.3); Monocytes % (auto) 1.3 % (0.0-12.0); Neutrophils # (auto) 8.8 10 ^3/uL (1.6-8.6); Neutrophils % (auto) 95.7 % (37.0-80.0); Nucleated Red Blood Cells % 0.4 %; Red Blood Cells 3.26 10^6/uL (4.0-5.20); Red Cell Distribution Width 17.8 % (11.8-14.3); White Blood Cell 9.1 10^3/uL (4.4-10.8)
[2021-02-04 10:36] LABS: Calcium 8.2 mg/dL (8.5-10.1); Potassium 4.2 mmol/L (3.5-5.1)
[2021-02-04 10:38] LABS: BUN/Creatinine Ratio 7.9
[2021-02-04 13:00] VITALS: BP 147/106
[2021-02-04 17:00] VITALS: BP 137/71
[2021-02-04] MEDS ORDERED: EPOETIN ALFA-EPBX 10,000 UNIT/1ML VIAL SC ONE (21:00)
[2021-02-04 21:57] VITALS: BP 127/82
[2021-02-04] MEDS: TEMAZEPAM 15 MG CAP PO PRN (22:04)
[2021-02-05 05:00] VITALS: BP 103/74
[2021-02-05 09:00] VITALS: BP 131/77
[2021-02-05] MEDS ORDERED: ALBUMIN 25% 100 ML IV PRN (09:45)
[2021-02-05] MEDS: amLODIPine BESYLATE 5 MG TAB PO SCH (10:00)
[2021-02-05] MEDS: CARVEDILOL 12.5 MG TAB PO SCH ×2 (10:00→22:27)
[2021-02-05 11:56] VITALS: BP 103/74
[2021-02-05 13:00] VITALS: BP 124/73
[2021-02-05] MEDS: DexAMETHasone SOD PHOS 10MG/1ML VIAL INJ IV SCH (13:40)
[2021-02-05] MEDS: ZINC SULFATE 220mg CAP or TAB PO SCH (13:40)
[2021-02-05] MEDS: FAMOTIDINE (10MG/ML) 2ML VL IV SCH (13:40)
[2021-02-05] MEDS: LEVOTHYROXINE SODIUM 100 MCG/5 ML INJ IV SCH (13:40)
[2021-02-05] MEDS: CLOPIDOGREL BISULFATE 75 MG TAB PO SCH (13:41)
[2021-02-05] MEDS: CHOLECALCIFEROL (VITD3) 1,000UNIT=25mCg TAB PO SCH (13:41)
[2021-02-05] MEDS: ASCORBIC ACID 500 MG TAB PO SCH (13:41)
[2021-02-05] MEDS: DOXYCYCLINE 100 MG TAB/CAP PO SCH ×2 (13:41→22:26)
[2021-02-05 17:00] VITALS: BP 133/71
[2021-02-05 22:00] VITALS: BP 123/77
[2021-02-06 05:00] VITALS: BP 133/86
[2021-02-06] MEDS: ALBUTEROL SULF HFA 90MCG INH 200DOSE IN PRN (06:10)
[2021-02-06 09:00] VITALS: BP 135/67
[2021-02-06] MEDS: FAMOTIDINE (10MG/ML) 2ML VL IV SCH (11:24)
[2021-02-06] MEDS: DexAMETHasone SOD PHOS 10MG/1ML VIAL INJ IV SCH (11:24)
[2021-02-06] MEDS: CARVEDILOL 12.5 MG TAB PO SCH ×2 (11:24→23:11)
[2021-02-06] MEDS: amLODIPine BESYLATE 5 MG TAB PO SCH (11:25)
[2021-02-06] MEDS: ZINC SULFATE 220mg CAP or TAB PO SCH (11:25)
[2021-02-06] MEDS: CLOPIDOGREL BISULFATE 75 MG TAB PO SCH (11:25)
[2021-02-06] MEDS: LEVOTHYROXINE SODIUM 100 MCG/5 ML INJ IV SCH (11:25)
[2021-02-06] MEDS: ASCORBIC ACID 500 MG TAB PO SCH (11:26)
[2021-02-06] MEDS: CHOLECALCIFEROL (VITD3) 1,000UNIT=25mCg TAB PO SCH (11:26)
[2021-02-06] MEDS: DOXYCYCLINE 100 MG TAB/CAP PO SCH ×2 (11:26→23:12)
[2021-02-06 13:00] VITALS: BP 125/74
[2021-02-06 22:00] VITALS: BP 118/72
[2021-02-07] MEDS ORDERED: SODIUM CHL 0.9% 1000 ML BAG XX ONE (07:00)
[2021-02-07 09:00] VITALS: BP 131/79
[2021-02-07] MEDS: DexAMETHasone SOD PHOS 10MG/1ML VIAL INJ IV SCH (11:43)
[2021-02-07] MEDS: DOXYCYCLINE 100 MG TAB/CAP PO SCH ×2 (11:44→22:06)
[2021-02-07] MEDS: CLOPIDOGREL BISULFATE 75 MG TAB PO SCH (11:44)
[2021-02-07] MEDS: FAMOTIDINE (10MG/ML) 2ML VL IV SCH (11:44)
[2021-02-07] MEDS: LEVOTHYROXINE SODIUM 100 MCG/5 ML INJ IV SCH (11:44)
[2021-02-07] MEDS: ZINC SULFATE 220mg CAP or TAB PO SCH (11:44)
[2021-02-07] MEDS: ASCORBIC ACID 500 MG TAB PO SCH (11:44)
[2021-02-07] MEDS: CARVEDILOL 12.5 MG TAB PO SCH ×2 (11:45→22:06)
[2021-02-07] MEDS: amLODIPine BESYLATE 5 MG TAB PO SCH (11:45)
[2021-02-07] MEDS: CHOLECALCIFEROL (VITD3) 1,000UNIT=25mCg TAB PO SCH (11:46)
[2021-02-07 13:00] VITALS: BP 128/69
[2021-02-07 17:00] VITALS: BP 118/76
[2021-02-07 17:25] LABS: Hemoglobin 10.2 g/dL (12.2-16.2)
[2021-02-07] MEDS ORDERED: EPOETIN ALFA-EPBX 10,000 UNIT/1ML VIAL SC ONE (21:00)
[2021-02-07] MEDS: ALBUTEROL SULF HFA 90MCG INH 200DOSE IN PRN (21:08)
[2021-02-07 22:00] VITALS: BP 116/73
[2021-02-07] MEDS: HYDROcodone-ACET 5/325MG TAB PO PRN (22:09)
[2021-02-08 09:00] VITALS: BP 135/73
[2021-02-08] MEDS: DexAMETHasone SOD PHOS 10MG/1ML VIAL INJ IV SCH (10:06)
[2021-02-08] MEDS: LEVOTHYROXINE SODIUM 100 MCG/5 ML INJ IV SCH (10:06)
[2021-02-08] MEDS: FAMOTIDINE (10MG/ML) 2ML VL IV SCH (10:06)
[2021-02-08 13:00] VITALS: BP 137/77
[2021-02-08] MEDS ORDERED: IOHEXOL 350 MG/ML 100ML IJ ONE (14:54)
[2021-02-08 15:47] VITALS: BP 137/77
[2021-02-08 17:00] VITALS: BP 161/99
[2021-02-08] MEDS: ALBUMIN 25% 100 ML IV SCH ×2 (17:00→17:26)
[2021-02-08] MEDS: ZINC SULFATE 220mg CAP or TAB PO SCH (17:16)
[2021-02-08] MEDS: amLODIPine BESYLATE 5 MG TAB PO SCH (17:17)
[2021-02-08] MEDS: CARVEDILOL 12.5 MG TAB PO SCH ×2 (17:17→20:52)
[2021-02-08] MEDS: CLOPIDOGREL BISULFATE 75 MG TAB PO SCH (17:18)
[2021-02-08] MEDS: CHOLECALCIFEROL (VITD3) 1,000UNIT=25mCg TAB PO SCH (17:18)
[2021-02-08] MEDS: ASCORBIC ACID 500 MG TAB PO SCH (17:18)
[2021-02-08] MEDS: DOXYCYCLINE 100 MG TAB/CAP PO SCH ×2 (17:18→20:52)
[2021-02-08] MEDS: ALBUTEROL SULF HFA 90MCG INH 200DOSE IN PRN (19:48)
[2021-02-08 21:15] VITALS: BP 97/64
[2021-02-08] MEDS: ACETAMINOPHEN 325 MG TAB PO PRN (21:37)
[2021-02-08 22:49] VITALS: BP 148/76
[2021-02-09 05:32] VITALS: BP 153/87
[2021-02-09] MEDS: ALBUTEROL SULF HFA 90MCG INH 200DOSE IN PRN ×2 (07:13→21:29)
[2021-02-09] MEDS: FAMOTIDINE (10MG/ML) 2ML VL IV SCH (08:15)
[2021-02-09] MEDS: LEVOTHYROXINE SODIUM 100 MCG/5 ML INJ IV SCH (08:15)
[2021-02-09] MEDS: DOXYCYCLINE 100 MG TAB/CAP PO SCH ×2 (08:15→21:25)
[2021-02-09] MEDS: DexAMETHasone SOD PHOS 10MG/1ML VIAL INJ IV SCH (08:15)
[2021-02-09] MEDS: ZINC SULFATE 220mg CAP or TAB PO SCH (08:17)
[2021-02-09] MEDS: CHOLECALCIFEROL (VITD3) 1,000UNIT=25mCg TAB PO SCH (08:19)
[2021-02-09] MEDS: amLODIPine BESYLATE 5 MG TAB PO SCH (08:21)
[2021-02-09] MEDS: CARVEDILOL 12.5 MG TAB PO SCH ×2 (08:21→21:25)
[2021-02-09] MEDS: CLOPIDOGREL BISULFATE 75 MG TAB PO SCH (08:23)
[2021-02-09] MEDS: ASCORBIC ACID 500 MG TAB PO SCH (08:23)
[2021-02-09 09:00] VITALS: BP 157/97
[2021-02-09 13:00] VITALS: BP 153/81
[2021-02-09 17:00] VITALS: BP 147/83
[2021-02-09 21:55] VITALS: BP 158/86
[2021-02-10] MEDS: hydrALAZINE HCL 20 MG/ML VL IV PRN (04:17)
[2021-02-10 04:58] VITALS: BP 164/98
[2021-02-10] MEDS: ALBUTEROL SULF HFA 90MCG INH 200DOSE IN PRN (05:49)
[2021-02-10 08:00] VITALS: BP 150/77
[2021-02-10] MEDS: ASCORBIC ACID 500 MG TAB PO SCH (10:00)
[2021-02-10] MEDS: ZINC SULFATE 220mg CAP or TAB PO SCH (10:00)
[2021-02-10] MEDS: FAMOTIDINE (10MG/ML) 2ML VL IV SCH (10:00)
[2021-02-10] MEDS: DexAMETHasone SOD PHOS 10MG/1ML VIAL INJ IV SCH (10:31)
[2021-02-10] MEDS: LEVOTHYROXINE SODIUM 100 MCG/5 ML INJ IV SCH (10:32)
[2021-02-10] MEDS: amLODIPine BESYLATE 5 MG TAB PO SCH (10:34)
[2021-02-10] MEDS: CARVEDILOL 12.5 MG TAB PO SCH ×2 (10:34→21:12)
[2021-02-10] MEDS: CHOLECALCIFEROL (VITD3) 1,000UNIT=25mCg TAB PO SCH (10:35)
[2021-02-10] MEDS: DOXYCYCLINE 100 MG TAB/CAP PO SCH ×2 (10:35→21:12)
[2021-02-10] MEDS: CLOPIDOGREL BISULFATE 75 MG TAB PO SCH (10:35)
[2021-02-10 12:08] VITALS: BP 117/69
[2021-02-10 17:00] VITALS: BP 140/91
[2021-02-10 21:26] VITALS: BP 146/87
[2021-02-11] VITALS (7 sets, daily range): BP systolic 130–151; BP diastolic 77–100
[2021-02-11] MEDS ORDERED: SODIUM ZIRCONIUM CYCL 10 GM PAK PO SCH (06:45)
[2021-02-11] MEDS ORDERED: SODIUM CHL 0.9% 1000 ML BAG XX ONE (07:00)
[2021-02-11] MEDS: CLOPIDOGREL BISULFATE 75 MG TAB PO SCH ×2 (10:00→10:25)
[2021-02-11] MEDS: CARVEDILOL 12.5 MG TAB PO SCH ×2 (10:00→22:22)
[2021-02-11] MEDS: amLODIPine BESYLATE 5 MG TAB PO SCH (10:00)
[2021-02-11 10:10] LABS: Hematocrit 25.6 % (36.0-46.0); Hemoglobin 8.7 g/dL (12.2-16.2); Mean Corpuscular Hemoglobin 31.3 pg (28.0-32.0); Mean Corpuscular Hgb Conc. 33.9 g/dL (32.0-36.0); Red Blood Cells 2.78 10^6/uL (4.0-5.20); White Blood Cell 7.2 10^3/uL (4.4-10.8)
[2021-02-11 10:15] LABS: Mean Corpuscular Volume 92.3 fL (80.0-100.0); Red Cell Distribution Width 17.5 % (11.8-14.3)
[2021-02-11 10:19] LABS: Basophils % (manual) 0 (0.0-2.0); Blast Cells 0; Myelocytes % 0; Promyelocytes % 0; Reactive Lymphocytes 0
[2021-02-11 10:20] LABS: BUN/Creatinine Ratio 11.6; Calcium 9.3 mg/dL (8.5-10.1); Potassium 4.3 mmol/L (3.5-5.1)
[2021-02-11] MEDS: DexAMETHasone SOD PHOS 10MG/1ML VIAL INJ IV SCH (10:22)
[2021-02-11] MEDS: LEVOTHYROXINE SODIUM 100 MCG/5 ML INJ IV SCH (10:23)
[2021-02-11] MEDS: FAMOTIDINE (10MG/ML) 2ML VL IV SCH (10:23)
[2021-02-11] MEDS: ZINC SULFATE 220mg CAP or TAB PO SCH (10:23)
[2021-02-11] MEDS: CHOLECALCIFEROL (VITD3) 1,000UNIT=25mCg TAB PO SCH (10:24)
[2021-02-11] MEDS: ASCORBIC ACID 500 MG TAB PO SCH (10:24)
[2021-02-11] MEDS: DOXYCYCLINE 100 MG TAB/CAP PO SCH (10:24)
[2021-02-11 12:56] LABS: Band Neutrophils % (manual) 7; Eosinophils % (manual) 1 (0-7); Lymphocytes % (manual) 9 (10.0-50.0); Metamyelocytes % 1; Monocytes % (manual) 5 (0-12)
[2021-02-11] MEDS ORDERED: EPOETIN ALFA-EPBX 10,000 UNIT/1ML VIAL SC ONE (21:00)
[2021-02-11] MEDS: ALBUTEROL SULF HFA 90MCG INH 200DOSE IN PRN (21:42)
[2021-02-12 05:00] VITALS: BP 144/99
[2021-02-12] MEDS: ALBUTEROL SULF HFA 90MCG INH 200DOSE IN PRN ×2 (05:58→20:24)
[2021-02-12] MEDS ORDERED: SODIUM CHL 0.9% 1000 ML BAG XX ONE (07:00)
[2021-02-12 07:09] LABS: Eosinophils # (auto) 0 10 ^3/uL (0-0.8); Hemoglobin 8.9 g/dL (12.2-16.2); Lymphocytes # (auto) 0.3 10 ^3/uL (0.4-5.4); Monocytes # (auto) 0.1 10 ^3/uL (0-1.3); Nucleated Red Blood Cells % 0.1 %
[2021-02-12 07:15] LABS: Basophils # (auto) 0 10 ^3/uL (0-0.2); Basophils % (auto) 0.5 % (0.0-2.0); Hematocrit 26.4 % (36.0-46.0); Mean Corpuscular Hemoglobin 30.9 pg (28.0-32.0); Mean Corpuscular Hgb Conc. 33.7 g/dL (32.0-36.0); Mean Corpuscular Volume 91.6 fL (80.0-100.0); Monocytes % (auto) 1.6 % (0.0-12.0); Neutrophils % (auto) 92.9 % (37.0-80.0); Red Blood Cells 2.89 10^6/uL (4.0-5.20); Red Cell Distribution Width 17.7 % (11.8-14.3); White Blood Cell 6.4 10^3/uL (4.4-10.8)
[2021-02-12 07:25] LABS: Potassium 4.7 mmol/L (3.5-5.1)
[2021-02-12 07:34] LABS: Albumin 2.4 g/dL (3.4-5.0); BUN/Creatinine Ratio 11.9; Bilirubin, Total 0.8 mg/dL (0.2-1.0); Calcium 9.2 mg/dL (8.5-10.1); Total Protein 6.8 g/dL (6.4-8.2)
[2021-02-12 08:00] VITALS: BP 114/82
[2021-02-12 09:18] VITALS: BP 114/82
[2021-02-12] MEDS: CLOPIDOGREL BISULFATE 75 MG TAB PO SCH (10:00)
[2021-02-12] MEDS: DexAMETHasone SOD PHOS 4 MG/1ML SDV INJ IV SCH (10:01)
[2021-02-12] MEDS: LEVOTHYROXINE SODIUM 100 MCG/5 ML INJ IV SCH (10:01)
[2021-02-12] MEDS: FAMOTIDINE (10MG/ML) 2ML VL IV SCH (10:01)
[2021-02-12] MEDS: ZINC SULFATE 220mg CAP or TAB PO SCH (10:02)
[2021-02-12] MEDS: CHOLECALCIFEROL (VITD3) 1,000UNIT=25mCg TAB PO SCH (10:02)
[2021-02-12] MEDS: ASCORBIC ACID 500 MG TAB PO SCH (10:02)
[2021-02-12] MEDS: amLODIPine BESYLATE 5 MG TAB PO SCH (10:14)
[2021-02-12] MEDS: CARVEDILOL 12.5 MG TAB PO SCH ×2 (10:14→22:36)
[2021-02-12 13:00] VITALS: BP 132/82
[2021-02-12 16:39] VITALS: BP 144/72
[2021-02-12] MEDS ORDERED: EPOETIN ALFA-EPBX 10,000 UNIT/1ML VIAL SC ONE (21:00)
[2021-02-12 21:32] VITALS: BP 138/84
[2021-02-13 04:38] VITALS: BP 150/93
[2021-02-13] MEDS: ALBUTEROL SULF HFA 90MCG INH 200DOSE IN PRN (05:53)
[2021-02-13 09:00] VITALS: BP 150/94
[2021-02-13] MEDS: CLOPIDOGREL BISULFATE 75 MG TAB PO SCH (10:00)
[2021-02-13] MEDS: ZINC SULFATE 220mg CAP or TAB PO SCH (10:11)
[2021-02-13] MEDS: LEVOTHYROXINE SODIUM 100 MCG/5 ML INJ IV SCH (10:11)
[2021-02-13] MEDS: FAMOTIDINE (10MG/ML) 2ML VL IV SCH (10:11)
[2021-02-13] MEDS: DexAMETHasone SOD PHOS 4 MG/1ML SDV INJ IV SCH (10:11)
[2021-02-13] MEDS: CARVEDILOL 12.5 MG TAB PO SCH ×2 (10:14→22:27)
[2021-02-13] MEDS: ASCORBIC ACID 500 MG TAB PO SCH (10:15)
[2021-02-13] MEDS: amLODIPine BESYLATE 5 MG TAB PO SCH (10:15)
[2021-02-13] MEDS: CHOLECALCIFEROL (VITD3) 1,000UNIT=25mCg TAB PO SCH (10:15)
[2021-02-13] MEDS: ACETAMINOPHEN 325 MG TAB PO PRN (10:16)
[2021-02-13 10:53] LABS: Basophils # (auto) 0 10 ^3/uL (0-0.2); Eosinophils # (auto) 0 10 ^3/uL (0-0.8); Eosinophils % (auto) 0.8 % (0.0-7.0); Hemoglobin 8.2 g/dL (12.2-16.2); Lymphocytes # (auto) 0.3 10 ^3/uL (0.4-5.4); Monocytes # (auto) 0.1 10 ^3/uL (0-1.3)
[2021-02-13 10:55] LABS: Basophils % (auto) 0.2 % (0.0-2.0); Hematocrit 24.5 % (36.0-46.0); Lymphocytes % (auto) 5.5 % (10.0-50.0); Mean Corpuscular Hemoglobin 30.6 pg (28.0-32.0); Mean Corpuscular Hgb Conc. 33.5 g/dL (32.0-36.0); Mean Corpuscular Volume 91.5 fL (80.0-100.0); Monocytes % (auto) 1.5 % (0.0-12.0); Neutrophils # (auto) 5.2 10 ^3/uL (1.6-8.6); Nucleated Red Blood Cells % 0.3 %; Red Blood Cells 2.68 10^6/uL (4.0-5.20); Red Cell Distribution Width 17.9 % (11.8-14.3); White Blood Cell 5.7 10^3/uL (4.4-10.8)
[2021-02-13 11:12] LABS: Albumin 2.3 g/dL (3.4-5.0); Potassium 3.9 mmol/L (3.5-5.1)
[2021-02-13 11:17] LABS: BUN/Creatinine Ratio 11.5; Bilirubin, Total 0.9 mg/dL (0.2-1.0); Total Protein 6.8 g/dL (6.4-8.2)
[2021-02-13 13:00] VITALS: BP 124/81
[2021-02-13 17:00] VITALS: BP 132/81
[2021-02-14 05:46] VITALS: BP 141/83
[2021-02-14 06:08] LABS: Basophils # (auto) 0 10 ^3/uL (0-0.2); Basophils % (auto) 0.2 % (0.0-2.0); Eosinophils # (auto) 0 10 ^3/uL (0-0.8); Lymphocytes # (auto) 0.4 10 ^3/uL (0.4-5.4); Mean Corpuscular Hemoglobin 30.8 pg (28.0-32.0); Monocytes # (auto) 0.1 10 ^3/uL (0-1.3); Red Cell Distribution Width 17.7 % (11.8-14.3)
[2021-02-14 06:10] LABS: Eosinophils % (auto) 0.3 % (0.0-7.0); Lymphocytes % (auto) 6.5 % (10.0-50.0); Mean Corpuscular Hgb Conc. 33.6 g/dL (32.0-36.0); Mean Corpuscular Volume 91.6 fL (80.0-100.0); Monocytes % (auto) 2.1 % (0.0-12.0); Neutrophils % (auto) 90.9 % (37.0-80.0); Nucleated Red Blood Cells % 0.2 %; Red Blood Cells 2.62 10^6/uL (4.0-5.20); White Blood Cell 5.5 10^3/uL (4.4-10.8)
[2021-02-14 06:22] LABS: Albumin 2.2 g/dL (3.4-5.0); BUN/Creatinine Ratio 11.5; Potassium 4.5 mmol/L (3.5-5.1)
[2021-02-14 06:26] LABS: Bilirubin, Total 0.8 mg/dL (0.2-1.0); Total Protein 6.5 g/dL (6.4-8.2)
[2021-02-14] MEDS ORDERED: SODIUM CHL 0.9% 1000 ML BAG XX ONE (07:00)
[2021-02-14] MEDS: ALBUTEROL SULF HFA 90MCG INH 200DOSE IN PRN (07:19)
[2021-02-14 09:00] VITALS: BP 147/87
[2021-02-14] MEDS: CLOPIDOGREL BISULFATE 75 MG TAB PO SCH (10:00)
[2021-02-14] MEDS: ASCORBIC ACID 500 MG TAB PO SCH ×2 (10:00→10:21)
[2021-02-14] MEDS: ZINC SULFATE 220mg CAP or TAB PO SCH ×2 (10:00→10:19)
[2021-02-14] MEDS: CHOLECALCIFEROL (VITD3) 1,000UNIT=25mCg TAB PO SCH ×2 (10:00→10:22)
[2021-02-14] MEDS: amLODIPine BESYLATE 5 MG TAB PO SCH ×2 (10:00→10:21)
[2021-02-14] MEDS: CARVEDILOL 12.5 MG TAB PO SCH ×3 (10:00→21:47)
[2021-02-14] MEDS: DexAMETHasone SOD PHOS 4 MG/1ML SDV INJ IV SCH (10:19)
[2021-02-14] MEDS: LEVOTHYROXINE SODIUM 100 MCG/5 ML INJ IV SCH (10:19)
[2021-02-14] MEDS: FAMOTIDINE (10MG/ML) 2ML VL IV SCH (10:19)
[2021-02-14 13:41] VITALS: BP 156/92
[2021-02-14 14:52] VITALS: BP 156/92
[2021-02-14 17:00] VITALS: BP 152/86
[2021-02-14] MEDS ORDERED: EPOETIN ALFA-EPBX 4,000 UNIT/ML VIAL SC ONE (21:00)
[2021-02-14 21:50] VITALS: BP 147/81
[2021-02-15] VITALS (72 sets, daily range): BP systolic 46–270; BP diastolic 29–244
[2021-02-15 07:16] LABS: Basophils # (auto) 0 10 ^3/uL (0-0.2); Eosinophils # (auto) 0 10 ^3/uL (0-0.8); Hemoglobin 7.5 g/dL (12.2-16.2); White Blood Cell 12.7 10^3/uL (4.4-10.8)
[2021-02-15 07:21] LABS: Basophils % (auto) 0.1 % (0.0-2.0); Hematocrit 23.3 % (36.0-46.0); Mean Corpuscular Hgb Conc. 32.2 g/dL (32.0-36.0); Mean Corpuscular Volume 93.1 fL (80.0-100.0); Nucleated Red Blood Cells % 0.3 %; Red Cell Distribution Width 18.1 % (11.8-14.3)
[2021-02-15 07:28] LABS: Albumin 2.3 g/dL (3.4-5.0); Anion Gap 12 (5-15); Carbon Dioxide 25 mmol/L (21-32); Chloride 105 mmol/L (98-107); Glucose 56 mg/dL (74-106); Lymphocytes % (auto) 6.9 % (10.0-50.0); Potassium 5.3 mmol/L (3.5-5.1); Sodium 142 mmol/L (136-145)
[2021-02-15 07:29] LABS: Lymphocytes # (auto) 0.4 10 ^3/uL (0.4-5.4); Monocytes # (auto) 0.4 10 ^3/uL (0-1.3)
[2021-02-15 07:32] LABS: Alanine Aminotransferase < 6 U/L (13-56); Alkaline Phosphatase 138 U/L (45-117); Aspartate Aminotransferase 22 U/L (15-37); BUN/Creatinine Ratio 13.5; Bilirubin, Total 0.9 mg/dL (0.2-1.0); GFR African American 8 mL/min; GFR Non-African American 7 mL/min; Total Protein 6.9 g/dL (6.4-8.2)
[2021-02-15 07:35] LABS: Blood Urea Nitrogen 90 mg/dL (7-18)
[2021-02-15] MEDS ORDERED: DOPamine 1600MCG/ML D5W 250 ML IV SCH (09:45)
[2021-02-15] MEDS: ALBUMIN 25% 100 ML IV SCH ×3 (10:00→18:31)
[2021-02-15] MEDS ORDERED: fentaNYL Drip 2500mCg/250mlNS 250 ML IV ONE (10:40)
[2021-02-15] MEDS ORDERED: NOREPINEPHRINE 8 MG/250ML KIT 250 ML IV ONE (10:40)
[2021-02-15] MEDS: CHOLECALCIFEROL (VITD3) 1,000UNIT=25mCg TAB PO SCH (11:00)
[2021-02-15] MEDS: ZINC SULFATE 220mg CAP or TAB PO SCH (11:00)
[2021-02-15] MEDS: CLOPIDOGREL BISULFATE 75 MG TAB PO SCH (11:00)
[2021-02-15] MEDS: CARVEDILOL 12.5 MG TAB PO SCH ×2 (11:00→22:00)
[2021-02-15] MEDS: ASCORBIC ACID 500 MG TAB PO SCH (11:00)
[2021-02-15] MEDS: amLODIPine BESYLATE 5 MG TAB PO SCH (11:00)
[2021-02-15] MEDS ORDERED: PHENYLEPHRINE IV 250 ML IV ONE (11:05)
[2021-02-15] MEDS: PROPOFOL 100 ML IV SCH (11:45)
[2021-02-15] MEDS: NOREPINEPHRINE 8 MG/250ML KIT 250 ML IV SCH ×3 (11:45→23:08)
[2021-02-15] MEDS: fentaNYL Drip 2500mCg/250mlNS 250 ML IV SCH ×2 (11:45→21:43)
[2021-02-15] MEDS ORDERED: SODIUM BICARBONATE 8.4 % INJ 50ML VIAL IV ONE (12:30)
[2021-02-15] MEDS ORDERED: D5W 5% 1,000 ML IV SCH (12:30)
[2021-02-15] MEDS ORDERED: CALCIUM GLUC 1,000mg/50ml-NS 50 ML IV ONE (12:30)
[2021-02-15] MEDS ORDERED: HEPARIN SODIUM (PORCINE) 5000 UNITS/ML 1ML VIAL IV ONE (12:45)
[2021-02-15] MEDS ORDERED: HEPARIN DRIP/D5W 100UNITS/ML 250 ML IV SCH (12:45)
[2021-02-15] MEDS ORDERED: FUROSEMIDE 100 MG/10ML VIAL IV ONE (13:00)
[2021-02-15] MEDS: PHENYLEPHRINE IV 250 ML IV SCH ×3 (13:00→21:35)
[2021-02-15] MEDS ORDERED: ATROPINE SULF 1 MG/10ml SYR IM ONE (13:10)
[2021-02-15] MEDS: VASOPRESSIN 50 UNITS in D5W 5% 247.5 ML IV SCH ×2 (13:43→23:07)
[2021-02-15] MEDS: SODIUM ZIRCONIUM CYCL 10 GM PAK PO SCH ×2 (14:00→22:00)
[2021-02-15 14:24] LABS: Basophils # (auto) 0 10 ^3/uL (0-0.2); Eosinophils # (auto) 0 10 ^3/uL (0-0.8); Hematocrit 17.9 % (36.0-46.0); Monocytes # (auto) 0.1 10 ^3/uL (0-1.3); Monocytes % (auto) 1.5 % (0.0-12.0); Nucleated Red Blood Cells % 0.4 %; Red Blood Cells 1.89 10^6/uL (4.0-5.20); Red Cell Distribution Width 18.7 % (11.8-14.3); White Blood Cell 5.4 10^3/uL (4.4-10.8)
[2021-02-15 14:25] LABS: Basophils % (auto) 0.3 % (0.0-2.0); Lymphocytes # (auto) 0.2 10 ^3/uL (0.4-5.4); Lymphocytes % (auto) 4.6 % (10.0-50.0); Mean Corpuscular Hemoglobin 30.1 pg (28.0-32.0); Mean Corpuscular Hgb Conc. 31.7 g/dL (32.0-36.0); Neutrophils % (auto) 93.6 % (37.0-80.0)
[2021-02-15 14:28] LABS: Hemoglobin 5.7 g/dL (12.2-16.2)
[2021-02-15 14:29] LABS: Albumin 2.7 g/dL (3.4-5.0); Calcium 8.8 mg/dL (8.5-10.1); Magnesium 2.5 mg/dL (1.6-2.6); Potassium 4.4 mmol/L (3.5-5.1)
[2021-02-15 14:32] LABS: BUN/Creatinine Ratio 12.9; Bilirubin, Total 1.2 mg/dL (0.2-1.0); Total Protein 6.5 g/dL (6.4-8.2)
[2021-02-15 14:40] LABS: INR 1.36 (0.9-1.15); Partial Thromboplastin Time 34.5 sec (23.6-33.0)
[2021-02-15] MEDS: MIDAZOLAM DRIP 50 mg/50mL 50 ML IV SCH ×3 (14:53→23:08)
[2021-02-15] MEDS: SODIUM BICARBONATE 50ML VIAL 150 ML in D5W 5% 1,000 ML IV SCH (14:53)
[2021-02-15] MEDS: EPINEPHrine HCL 250 ML IV SCH ×2 (16:01→23:06)
[2021-02-15] MEDS ORDERED: ALBUMIN 25% 100 ML IV PRN (17:45)
[2021-02-15] MEDS: DexAMETHasone SOD PHOS 4 MG/1ML SDV INJ IV SCH (18:28)
[2021-02-15] MEDS: FAMOTIDINE (10MG/ML) 2ML VL IV SCH (18:28)
[2021-02-15] MEDS: LEVOTHYROXINE SODIUM 100 MCG/5 ML INJ IV SCH (18:29)
[2021-02-15] MEDS: DOPamine 1600MCG/ML D5W 250 ML IV SCH (23:03)
[2021-02-15] MEDS ORDERED: PHENYLEPHRINE HCL 10 MG/ML VL ONE (23:50)
[2021-02-16] VITALS (102 sets, daily range): BP systolic 61–167; BP diastolic 45–116
[2021-02-16] MEDS: PHENYLEPHRINE INJ 80 MG in SODIUM CHL 0.9% 242 ML IV SCH ×4 (00:13→19:59)
[2021-02-16] MEDS ORDERED: PHENYLEPHRINE IV 250 ML IV ONE (04:30)
[2021-02-16] MEDS ORDERED: PHENYLEPHRINE HCL 10 MG/ML VL ONE ×2 (04:31→04:34)
[2021-02-16] MEDS: SODIUM BICARBONATE 50ML VIAL 150 ML in D5W 5% 1,000 ML IV SCH ×2 (05:00→21:00)
[2021-02-16] MEDS: SODIUM ZIRCONIUM CYCL 10 GM PAK PO SCH ×2 (05:06→14:00)
[2021-02-16] MEDS: EPINEPHrine HCL 250 ML IV SCH ×2 (05:08→13:06)
[2021-02-16] MEDS: NOREPINEPHRINE 8 MG/250ML KIT 250 ML IV SCH ×4 (05:09→19:58)
[2021-02-16] MEDS: VASOPRESSIN 50 UNITS in D5W 5% 247.5 ML IV SCH ×2 (05:10→13:07)
[2021-02-16] MEDS: MIDAZOLAM DRIP 50 mg/50mL 50 ML IV SCH ×3 (05:10→15:17)
[2021-02-16 06:50] LABS: Basophils # (auto) 0 10 ^3/uL (0-0.2); Basophils % (auto) 0.4 % (0.0-2.0); Eosinophils # (auto) 0 10 ^3/uL (0-0.8); Eosinophils % (auto) 0.1 % (0.0-7.0); Hemoglobin 9.5 g/dL (12.2-16.2); Lymphocytes # (auto) 0.7 10 ^3/uL (0.4-5.4); Red Cell Distribution Width 19.7 % (11.8-14.3)
[2021-02-16 06:55] LABS: Hematocrit 29.4 % (36.0-46.0); Lymphocytes % (auto) 6.6 % (10.0-50.0); Mean Corpuscular Hemoglobin 30.2 pg (28.0-32.0); Mean Corpuscular Hgb Conc. 32.4 g/dL (32.0-36.0); Mean Corpuscular Volume 93.1 fL (80.0-100.0); Monocytes # (auto) 0.2 10 ^3/uL (0-1.3); Neutrophils # (auto) 9.8 10 ^3/uL (1.6-8.6); Neutrophils % (auto) 90.9 % (37.0-80.0); Nucleated Red Blood Cells % 0.5 %; Red Blood Cells 3.16 10^6/uL (4.0-5.20); White Blood Cell 10.8 10^3/uL (4.4-10.8)
[2021-02-16 07:00] LABS: INR 1.49 (0.9-1.15); Partial Thromboplastin Time 41.9 sec (23.6-33.0)
[2021-02-16 07:13] LABS: Calcium 8.3 mg/dL (8.5-10.1); Potassium 4.9 mmol/L (3.5-5.1)
[2021-02-16 07:16] LABS: Albumin 2.5 g/dL (3.4-5.0); BUN/Creatinine Ratio 12.9
[2021-02-16 07:19] LABS: Bilirubin, Total 1.8 mg/dL (0.2-1.0); Total Protein 6.1 g/dL (6.4-8.2)
[2021-02-16] MEDS: DOPamine 1600MCG/ML D5W 250 ML IV SCH (07:36)
[2021-02-16] MEDS: fentaNYL Drip 2500mCg/250mlNS 250 ML IV SCH ×2 (07:40→19:57)
[2021-02-16] MEDS ORDERED: SODIUM BICARBONATE 8.4 % INJ 50ML VIAL IV ONE (09:30)
[2021-02-16] MEDS: NOREPINEPHRINE BITARTRATE 32 MG in SODIUM CHL 0.9% 218 ML IV SCH ×2 (09:30→13:30)
[2021-02-16] MEDS: ASCORBIC ACID 500 MG TAB PO SCH (10:00)
[2021-02-16] MEDS: CLOPIDOGREL BISULFATE 75 MG TAB PO SCH (10:00)
[2021-02-16] MEDS: CARVEDILOL 12.5 MG TAB PO SCH ×2 (10:00→22:00)
[2021-02-16] MEDS: ZINC SULFATE 220mg CAP or TAB PO SCH (10:00)
[2021-02-16] MEDS: CHOLECALCIFEROL (VITD3) 1,000UNIT=25mCg TAB PO SCH (10:00)
[2021-02-16] MEDS: amLODIPine BESYLATE 5 MG TAB PO SCH (10:00)
[2021-02-16] MEDS: LEVOTHYROXINE SODIUM 100 MCG/5 ML INJ IV SCH (10:02)
[2021-02-16] MEDS: FAMOTIDINE (10MG/ML) 2ML VL IV SCH (10:02)
[2021-02-16] MEDS: DexAMETHasone SOD PHOS 4 MG/1ML SDV INJ IV SCH (10:02)
[2021-02-16] MEDS: PROPOFOL 100 ML IV SCH (11:45)
[2021-02-16] MEDS ORDERED: NOREPINEPHRINE 8 MG/250ML KIT 250 ML IV ONE (15:26)
[2021-02-17] VITALS (106 sets, daily range): BP systolic 86–189; BP diastolic 49–108
[2021-02-17] MEDS: SODIUM ZIRCONIUM CYCL 10 GM PAK PO SCH ×4 (06:00→21:45)
[2021-02-17 06:03] LABS: Basophils # (auto) 0 10 ^3/uL (0-0.2); Basophils % (auto) 0.2 % (0.0-2.0); Eosinophils # (auto) 0 10 ^3/uL (0-0.8); Lymphocytes # (auto) 0.3 10 ^3/uL (0.4-5.4); Mean Corpuscular Volume 90.7 fL (80.0-100.0); Monocytes # (auto) 0.3 10 ^3/uL (0-1.3); Red Cell Distribution Width 19.9 % (11.8-14.3)
[2021-02-17 06:08] LABS: Eosinophils % (auto) 0.1 % (0.0-7.0); Hematocrit 25.3 % (36.0-46.0); Hemoglobin 8.3 g/dL (12.2-16.2); Lymphocytes % (auto) 3.3 % (10.0-50.0); Mean Corpuscular Hemoglobin 29.9 pg (28.0-32.0); Monocytes % (auto) 3.1 % (0.0-12.0); Neutrophils # (auto) 8.5 10 ^3/uL (1.6-8.6); Neutrophils % (auto) 93.3 % (37.0-80.0); Nucleated Red Blood Cells % 0.4 %; Red Blood Cells 2.79 10^6/uL (4.0-5.20); White Blood Cell 9.1 10^3/uL (4.4-10.8)
[2021-02-17 06:23] LABS: Potassium 4.3 mmol/L (3.5-5.1)
[2021-02-17 06:30] LABS: Albumin 2.4 g/dL (3.4-5.0); BUN/Creatinine Ratio 13.9; Bilirubin, Total 1.2 mg/dL (0.2-1.0); Calcium 7.3 mg/dL (8.5-10.1); Total Protein 6.1 g/dL (6.4-8.2)
[2021-02-17] MEDS ORDERED: SODIUM CHL 0.9% 1000 ML BAG XX ONE (07:00)
[2021-02-17] MEDS: fentaNYL Drip 2500mCg/250mlNS 250 ML IV SCH ×2 (08:20→20:11)
[2021-02-17] MEDS ORDERED: VANCOMYCIN PER PHARMACY 0 MG IV SCH (09:30)
[2021-02-17] MEDS ORDERED: VANCOMYCIN 1GM/250ML 250 ML IV ONE (10:00)
[2021-02-17] MEDS: CARVEDILOL 12.5 MG TAB PO SCH ×2 (10:00→21:45)
[2021-02-17] MEDS: amLODIPine BESYLATE 5 MG TAB PO SCH (10:00)
[2021-02-17] MEDS: NOREPINEPHRINE 8 MG/250ML KIT 250 ML IV SCH ×2 (10:00→14:49)
[2021-02-17] MEDS: MIDAZOLAM DRIP 50 mg/50mL 50 ML IV SCH ×2 (10:02→23:34)
[2021-02-17] MEDS: DexAMETHasone SOD PHOS 4 MG/1ML SDV INJ IV SCH (10:03)
[2021-02-17] MEDS: CLOPIDOGREL BISULFATE 75 MG TAB PO SCH (10:03)
[2021-02-17] MEDS: FAMOTIDINE (10MG/ML) 2ML VL IV SCH (10:03)
[2021-02-17] MEDS: LEVOTHYROXINE SODIUM 100 MCG/5 ML INJ IV SCH (10:03)
[2021-02-17] MEDS: CHOLECALCIFEROL (VITD3) 1,000UNIT=25mCg TAB PO SCH (10:04)
[2021-02-17] MEDS: ASCORBIC ACID 500 MG TAB PO SCH (10:04)
[2021-02-17] MEDS: DOPamine 1600MCG/ML D5W 250 ML IV SCH (10:04)
[2021-02-17] MEDS: ZINC SULFATE 220mg CAP or TAB PO SCH (10:05)
[2021-02-17] MEDS: SODIUM BICARBONATE 50ML VIAL 150 ML in D5W 5% 1,000 ML IV SCH (11:21)
[2021-02-17] MEDS: PROPOFOL 100 ML IV SCH (11:22)
[2021-02-17] MEDS: PHENYLEPHRINE INJ 80 MG in SODIUM CHL 0.9% 242 ML IV SCH (11:31)
[2021-02-17] MEDS: ACCU-CHEK COMFORT CURVE STRIP VI SCH ×2 (12:21→18:00)
[2021-02-17] MEDS: InsuLIN REG 1unit/0.01ml Soln (100units/ml) SC SCH ×2 (12:21→18:00)
[2021-02-17] MEDS ORDERED: EPINEPHrine HCL 1 MG/10 ML SYRG IV ONE (12:59)
[2021-02-17] MEDS ORDERED: SODIUM BICARBONATE 8.4% INJ 50ML SYRINGE IV ONE (12:59)
[2021-02-17] MEDS ORDERED: CALCIUM CHLOR(10%) 100MG/ML 10ML SYRINGE IV ONE (12:59)
[2021-02-17] MEDS ORDERED: PIPERACILLIN-TAZOB 2.25GM 50 ML IV SCH (14:00)
[2021-02-17] MEDS: MEROPENEM 500MG IVPB 50 ML IV SCH (18:58)
[2021-02-17] MEDS ORDERED: EPOETIN ALFA-EPBX 10,000 UNIT/1ML VIAL SC ONE (21:00)
[2021-02-18] VITALS (107 sets, daily range): BP systolic 67–172; BP diastolic 19–87
[2021-02-18] MEDS: InsuLIN REG 1unit/0.01ml Soln (100units/ml) SC SCH ×4 (00:01→18:00)
[2021-02-18] MEDS: ACCU-CHEK COMFORT CURVE STRIP VI SCH ×4 (00:01→18:18)
[2021-02-18] MEDS: NOREPINEPHRINE 8 MG/250ML KIT 250 ML IV SCH ×4 (00:02→18:20)
[2021-02-18] MEDS: SODIUM BICARBONATE 50ML VIAL 150 ML in D5W 5% 1,000 ML IV SCH ×2 (02:50→17:00)
[2021-02-18] MEDS: PHENYLEPHRINE INJ 80 MG in SODIUM CHL 0.9% 242 ML IV SCH ×3 (02:51→18:20)
[2021-02-18] MEDS: DOPamine 1600MCG/ML D5W 250 ML IV SCH ×2 (04:19→22:57)
[2021-02-18 05:18] LABS: Basophils # (auto) 0 10 ^3/uL (0-0.2); Basophils % (auto) 0.3 % (0.0-2.0); Eosinophils # (auto) 0 10 ^3/uL (0-0.8); Hematocrit 25.5 % (36.0-46.0); Hemoglobin 8.6 g/dL (12.2-16.2); Lymphocytes # (auto) 0.3 10 ^3/uL (0.4-5.4); Lymphocytes % (auto) 2.6 % (10.0-50.0); Mean Corpuscular Hemoglobin 30.6 pg (28.0-32.0); Mean Corpuscular Hgb Conc. 33.7 g/dL (32.0-36.0); Monocytes # (auto) 0.4 10 ^3/uL (0-1.3); Monocytes % (auto) 4.5 % (0.0-12.0); Neutrophils # (auto) 9.3 10 ^3/uL (1.6-8.6); Neutrophils % (auto) 92.6 % (37.0-80.0); Nucleated Red Blood Cells % 0.2 %; Red Cell Distribution Width 19.6 % (11.8-14.3)
[2021-02-18 05:26] LABS: Albumin 2.5 g/dL (3.4-5.0); BUN/Creatinine Ratio 13.8; Calcium 8.2 mg/dL (8.5-10.1); Potassium 3.8 mmol/L (3.5-5.1)
[2021-02-18 05:29] LABS: Bilirubin, Total 1.1 mg/dL (0.2-1.0); Total Protein 6.3 g/dL (6.4-8.2)
[2021-02-18] MEDS: SODIUM ZIRCONIUM CYCL 10 GM PAK PO SCH (06:00)
[2021-02-18] MEDS: fentaNYL Drip 2500mCg/250mlNS 250 ML IV SCH ×2 (06:51→18:15)
[2021-02-18] MEDS ORDERED: SODIUM CHL 0.9% 1000 ML BAG XX ONE (07:00)
[2021-02-18] MEDS ORDERED: VANCOMYCIN 1GM/250ML 250 ML IV ONE (09:00)
[2021-02-18] MEDS: DexAMETHasone SOD PHOS 4 MG/1ML SDV INJ IV SCH (09:28)
[2021-02-18] MEDS: LEVOTHYROXINE SODIUM 100 MCG/5 ML INJ IV SCH (09:28)
[2021-02-18] MEDS: ZINC SULFATE 220mg CAP or TAB PO SCH (09:29)
[2021-02-18] MEDS: amLODIPine BESYLATE 5 MG TAB PO SCH (09:29)
[2021-02-18] MEDS: FAMOTIDINE (10MG/ML) 2ML VL IV SCH (09:29)
[2021-02-18] MEDS: CARVEDILOL 12.5 MG TAB PO SCH ×2 (09:29→20:56)
[2021-02-18] MEDS: CHOLECALCIFEROL (VITD3) 1,000UNIT=25mCg TAB PO SCH (09:30)
[2021-02-18] MEDS: CLOPIDOGREL BISULFATE 75 MG TAB PO SCH (09:30)
[2021-02-18] MEDS: ASCORBIC ACID 500 MG TAB PO SCH (09:30)
[2021-02-18] MEDS: EPINEPHrine HCL 250 ML IV SCH (11:36)
[2021-02-18] MEDS: VASOPRESSIN 50 UNITS in D5W 5% 247.5 ML IV SCH (11:36)
[2021-02-18] MEDS: PROPOFOL 100 ML IV SCH (11:37)
[2021-02-18 12:01] LABS: INR 1.21 (0.9-1.15); Partial Thromboplastin Time 32.8 sec (23.6-33.0)
[2021-02-18] MEDS: MEROPENEM 500MG IVPB 50 ML IV SCH (17:00)
[2021-02-18] MEDS: MIDAZOLAM DRIP 50 mg/50mL 50 ML IV SCH (20:56)
[2021-02-18] MEDS ORDERED: EPOETIN ALFA-EPBX 10,000 UNIT/1ML VIAL SC ONE (21:00)
[2021-02-19] VITALS (100 sets, daily range): BP systolic 75–177; BP diastolic 43–98
[2021-02-19] MEDS: MIDAZOLAM DRIP 50 mg/50mL 50 ML IV SCH ×3 (02:31→18:54)
[2021-02-19] MEDS: PHENYLEPHRINE INJ 80 MG in SODIUM CHL 0.9% 242 ML IV SCH (02:33)
[2021-02-19 05:54] LABS: Potassium 3.5 mmol/L (3.5-5.1)
[2021-02-19] MEDS: ACCU-CHEK COMFORT CURVE STRIP VI SCH ×4 (06:00→19:21)
[2021-02-19] MEDS: InsuLIN REG 1unit/0.01ml Soln (100units/ml) SC SCH ×4 (06:00→18:00)
[2021-02-19 06:01] LABS: Albumin 2.5 g/dL (3.4-5.0); BUN/Creatinine Ratio 14.4; Total Protein 6.5 g/dL (6.4-8.2)
[2021-02-19 06:13] LABS: Hematocrit 23.4 % (36.0-46.0); Hemoglobin 7.6 g/dL (12.2-16.2); Mean Corpuscular Hemoglobin 30.2 pg (28.0-32.0); Mean Corpuscular Hgb Conc. 32.5 g/dL (32.0-36.0); Red Blood Cells 2.51 10^6/uL (4.0-5.20); White Blood Cell 10.3 10^3/uL (4.4-10.8)
[2021-02-19 06:14] LABS: Red Cell Distribution Width 20.1 % (11.8-14.3)
[2021-02-19 06:16] LABS: Basophils % (manual) 0 (0.0-2.0); Blast Cells 0; Eosinophils % (manual) 0 (0-7); Metamyelocytes % 0; Promyelocytes % 0; Reactive Lymphocytes 0
[2021-02-19 06:57] LABS: Band Neutrophils % (manual) 28; Lymphocytes % (manual) 7 (10.0-50.0); Monocytes % (manual) 5 (0-12); Myelocytes % 1
[2021-02-19] MEDS: NOREPINEPHRINE 8 MG/250ML KIT 250 ML IV SCH (09:29)
[2021-02-19] MEDS: FAMOTIDINE (10MG/ML) 2ML VL IV SCH (09:33)
[2021-02-19] MEDS: DexAMETHasone SOD PHOS 4 MG/1ML SDV INJ IV SCH (09:33)
[2021-02-19] MEDS: LEVOTHYROXINE SODIUM 100 MCG/5 ML INJ IV SCH (09:34)
[2021-02-19] MEDS: ZINC SULFATE 220mg CAP or TAB PO SCH (09:34)
[2021-02-19] MEDS: CLOPIDOGREL BISULFATE 75 MG TAB PO SCH (09:35)
[2021-02-19] MEDS: CARVEDILOL 12.5 MG TAB PO SCH ×2 (09:35→20:31)
[2021-02-19] MEDS: CHOLECALCIFEROL (VITD3) 1,000UNIT=25mCg TAB PO SCH (09:36)
[2021-02-19] MEDS: ASCORBIC ACID 500 MG TAB PO SCH (09:36)
[2021-02-19] MEDS: amLODIPine BESYLATE 5 MG TAB PO SCH (10:00)
[2021-02-19] MEDS: VASOPRESSIN 50 UNITS in D5W 5% 247.5 ML IV SCH (11:45)
[2021-02-19] MEDS: EPINEPHrine HCL 250 ML IV SCH (11:45)
[2021-02-19] MEDS: PROPOFOL 100 ML IV SCH (11:45)
[2021-02-19] MEDS ORDERED: VANCOMYCIN 1GM/250ML 250 ML IV ONE (16:00)
[2021-02-19] MEDS: DOPamine 1600MCG/ML D5W 250 ML IV SCH (17:15)
[2021-02-19] MEDS: MEROPENEM 500MG IVPB 50 ML IV SCH ×2 (17:27→18:50)
[2021-02-19] MEDS: fentaNYL Drip 2500mCg/250mlNS 250 ML IV SCH (18:53)
[2021-02-19] MEDS: NOREPINEPHRINE BITARTRATE 32 MG in SODIUM CHL 0.9% 218 ML IV SCH (21:00)
[2021-02-20] VITALS (83 sets, daily range): BP systolic 68–154; BP diastolic 49–87
[2021-02-20] MEDS ORDERED: NOREPINEPHRINE BITARTRATE 6 ML IV ONE (00:16)
[2021-02-20] MEDS: ACCU-CHEK COMFORT CURVE STRIP VI SCH ×4 (04:59→19:42)
[2021-02-20] MEDS: InsuLIN REG 1unit/0.01ml Soln (100units/ml) SC SCH ×4 (04:59→18:00)
[2021-02-20 06:29] LABS: Basophils # (auto) 0 10 ^3/uL (0-0.2); Lymphocytes # (auto) 0.2 10 ^3/uL (0.4-5.4); Monocytes # (auto) 0.4 10 ^3/uL (0-1.3); White Blood Cell 5.2 10^3/uL (4.4-10.8)
[2021-02-20 06:36] LABS: Basophils % (auto) 0.3 % (0.0-2.0); Eosinophils # (auto) 0 10 ^3/uL (0-0.8); Hematocrit 18.4 % (36.0-46.0); Lymphocytes % (auto) 3.4 % (10.0-50.0); Mean Corpuscular Hemoglobin 30.2 pg (28.0-32.0); Mean Corpuscular Hgb Conc. 33.3 g/dL (32.0-36.0); Mean Corpuscular Volume 90.9 fL (80.0-100.0); Monocytes % (auto) 6.9 % (0.0-12.0); Neutrophils # (auto) 4.7 10 ^3/uL (1.6-8.6); Neutrophils % (auto) 89.4 % (37.0-80.0); Nucleated Red Blood Cells % 0.7 %; Red Blood Cells 2.02 10^6/uL (4.0-5.20); Red Cell Distribution Width 19.4 % (11.8-14.3)
[2021-02-20 06:58] LABS: Potassium 3.2 mmol/L (3.5-5.1)
[2021-02-20 07:09] LABS: Albumin 2.3 g/dL (3.4-5.0); BUN/Creatinine Ratio 14.6; Calcium 8.5 mg/dL (8.5-10.1)
[2021-02-20 07:11] LABS: Bilirubin, Total 0.9 mg/dL (0.2-1.0); Total Protein 5.8 g/dL (6.4-8.2)
[2021-02-20 07:51] LABS: Hemoglobin 6.1 g/dL (12.2-16.2)
[2021-02-20 09:46] LABS: White Blood Cell 5.2 10^3/uL (4.4-10.8)
[2021-02-20 09:48] LABS: Hematocrit 18.3 % (36.0-46.0); Mean Corpuscular Hemoglobin 30.1 pg (28.0-32.0); Mean Corpuscular Hgb Conc. 32.9 g/dL (32.0-36.0); Mean Corpuscular Volume 91.4 fL (80.0-100.0); Red Blood Cells 2.01 10^6/uL (4.0-5.20); Red Cell Distribution Width 19.3 % (11.8-14.3)
[2021-02-20] MEDS: CARVEDILOL 12.5 MG TAB PO SCH ×3 (10:00→23:19)
[2021-02-20] MEDS: amLODIPine BESYLATE 5 MG TAB PO SCH (10:00)
[2021-02-20] MEDS: MIDAZOLAM DRIP 50 mg/50mL 50 ML IV SCH ×2 (10:14→21:30)
[2021-02-20] MEDS: LEVOTHYROXINE SODIUM 100 MCG/5 ML INJ IV SCH (10:14)
[2021-02-20] MEDS: DexAMETHasone SOD PHOS 4 MG/1ML SDV INJ IV SCH (10:15)
[2021-02-20] MEDS: ZINC SULFATE 220mg CAP or TAB PO SCH (10:15)
[2021-02-20] MEDS: FAMOTIDINE (10MG/ML) 2ML VL IV SCH (10:15)
[2021-02-20] MEDS: ASCORBIC ACID 500 MG TAB PO SCH (10:15)
[2021-02-20] MEDS: CHOLECALCIFEROL (VITD3) 1,000UNIT=25mCg TAB PO SCH (10:16)
[2021-02-20] MEDS: CLOPIDOGREL BISULFATE 75 MG TAB PO SCH (10:17)
[2021-02-20 10:55] LABS: Basophils % (manual) 0 (0.0-2.0); Blast Cells 0; Eosinophils % (manual) 0 (0-7); Metamyelocytes % 0; Myelocytes % 0; Promyelocytes % 0; Reactive Lymphocytes 0
[2021-02-20 11:06] LABS: Band Neutrophils % (manual) 8; Lymphocytes % (manual) 4 (10.0-50.0); Monocytes % (manual) 6 (0-12)
[2021-02-20] MEDS: fentaNYL Drip 2500mCg/250mlNS 250 ML IV SCH (11:14)
[2021-02-20] MEDS: DOPamine 1600MCG/ML D5W 250 ML IV SCH (11:33)
[2021-02-20] MEDS: VASOPRESSIN 50 UNITS in D5W 5% 247.5 ML IV SCH (11:45)
[2021-02-20] MEDS: PROPOFOL 100 ML IV SCH (11:45)
[2021-02-20] MEDS: EPINEPHrine HCL 250 ML IV SCH (11:45)
[2021-02-20] MEDS: NOREPINEPHRINE BITARTRATE 32 MG in SODIUM CHL 0.9% 218 ML IV SCH (21:00)
[2021-02-20] MEDS: PHENYLEPHRINE INJ 80 MG in SODIUM CHL 0.9% 242 ML IV SCH (23:00)
[2021-02-21] VITALS (107 sets, daily range): BP systolic 111–133; BP diastolic 59–76
[2021-02-21] MEDS: DOPamine 1600MCG/ML D5W 250 ML IV SCH (05:51)
[2021-02-21] MEDS: InsuLIN REG 1unit/0.01ml Soln (100units/ml) SC SCH ×4 (06:00→17:58)
[2021-02-21 06:48] LABS: Hemoglobin 7.2 g/dL (12.2-16.2)
[2021-02-21 06:52] LABS: Hematocrit 21.2 % (36.0-46.0); Mean Corpuscular Hemoglobin 29.9 pg (28.0-32.0); Mean Corpuscular Hgb Conc. 33.9 g/dL (32.0-36.0); Mean Corpuscular Volume 88.1 fL (80.0-100.0); Red Blood Cells 2.41 10^6/uL (4.0-5.20); Red Cell Distribution Width 18.5 % (11.8-14.3); White Blood Cell 5.7 10^3/uL (4.4-10.8)
[2021-02-21] MEDS: ACCU-CHEK COMFORT CURVE STRIP VI SCH ×4 (06:52→17:57)
[2021-02-21] MEDS: fentaNYL Drip 2500mCg/250mlNS 250 ML IV SCH (07:00)
[2021-02-21 07:10] LABS: Albumin 2.2 g/dL (3.4-5.0); BUN/Creatinine Ratio 15.4; Calcium 8.7 mg/dL (8.5-10.1); Potassium 3.2 mmol/L (3.5-5.1)
[2021-02-21 07:13] LABS: Bilirubin, Total 0.9 mg/dL (0.2-1.0); Total Protein 5.5 g/dL (6.4-8.2)
[2021-02-21 07:14] LABS: Basophils % (manual) 0 (0.0-2.0); Blast Cells 0; Eosinophils % (manual) 0 (0-7); Metamyelocytes % 0; Promyelocytes % 0; Reactive Lymphocytes 0
[2021-02-21 08:09] LABS: Band Neutrophils % (manual) 17; Lymphocytes % (manual) 7 (10.0-50.0); Monocytes % (manual) 9 (0-12); Myelocytes % 1
[2021-02-21] MEDS: DexAMETHasone SOD PHOS 4 MG/1ML SDV INJ IV SCH (09:35)
[2021-02-21] MEDS: FAMOTIDINE (10MG/ML) 2ML VL IV SCH (09:35)
[2021-02-21] MEDS: LEVOTHYROXINE SODIUM 100 MCG/5 ML INJ IV SCH (09:35)
[2021-02-21] MEDS: ASCORBIC ACID 500 MG TAB PO SCH (09:36)
[2021-02-21] MEDS: ZINC SULFATE 220mg CAP or TAB PO SCH (09:36)
[2021-02-21] MEDS: CHOLECALCIFEROL (VITD3) 1,000UNIT=25mCg TAB PO SCH (09:37)
[2021-02-21] MEDS: amLODIPine BESYLATE 5 MG TAB PO SCH (09:37)
[2021-02-21] MEDS: CARVEDILOL 12.5 MG TAB PO SCH ×2 (09:37→22:00)
[2021-02-21] MEDS: CLOPIDOGREL BISULFATE 75 MG TAB PO SCH (09:38)
[2021-02-21] MEDS: MIDAZOLAM DRIP 50 mg/50mL 50 ML IV SCH (11:23)
[2021-02-21] MEDS: DEXTROSE (50%) 50ML SYRG IV PRN (11:35)
[2021-02-21] MEDS: VASOPRESSIN 50 UNITS in D5W 5% 247.5 ML IV SCH (11:45)
[2021-02-21] MEDS: PROPOFOL 100 ML IV SCH (11:45)
[2021-02-21] MEDS: EPINEPHrine HCL 250 ML IV SCH (11:45)
[2021-02-21] MEDS ORDERED: Nepro With Carb Steady 1 Liter Bottle GT SCH ×2 (16:00→18:30)
[2021-02-21] MEDS: MEROPENEM 500MG IVPB 50 ML IV SCH (17:00)
[2021-02-21] MEDS ORDERED: VANCOMYCIN 1GM/250ML 250 ML IV ONE (18:00)
[2021-02-21] MEDS: NOREPINEPHRINE BITARTRATE 32 MG in SODIUM CHL 0.9% 218 ML IV SCH (21:00)
[2021-02-21] MEDS: PHENYLEPHRINE INJ 80 MG in SODIUM CHL 0.9% 242 ML IV SCH (23:00)
[2021-02-22] VITALS (72 sets, daily range): BP systolic 96–134; BP diastolic 54–78
[2021-02-22] MEDS: DOPamine 1600MCG/ML D5W 250 ML IV SCH ×2 (00:09→18:27)
[2021-02-22] MEDS: InsuLIN REG 1unit/0.01ml Soln (100units/ml) SC SCH ×4 (06:00→17:53)
[2021-02-22] MEDS: ACCU-CHEK COMFORT CURVE STRIP VI SCH ×4 (06:00→17:53)
[2021-02-22 06:51] LABS: Red Blood Cells 2.57 10^6/uL (4.0-5.20); White Blood Cell 7.5 10^3/uL (4.4-10.8)
[2021-02-22 06:53] LABS: Hematocrit 22.5 % (36.0-46.0); Hemoglobin 7.5 g/dL (12.2-16.2); Mean Corpuscular Hgb Conc. 33.2 g/dL (32.0-36.0); Mean Corpuscular Volume 87.4 fL (80.0-100.0); Red Cell Distribution Width 18.4 % (11.8-14.3)
[2021-02-22 06:58] LABS: Calcium 8.4 mg/dL (8.5-10.1); Potassium 3.2 mmol/L (3.5-5.1)
[2021-02-22 07:02] LABS: BUN/Creatinine Ratio 15.3; Bilirubin, Total 0.7 mg/dL (0.2-1.0); Total Protein 5.5 g/dL (6.4-8.2)
[2021-02-22 07:32] LABS: Basophils % (manual) 0 (0.0-2.0); Blast Cells 0; Eosinophils % (manual) 0 (0-7); Promyelocytes % 0; Reactive Lymphocytes 0
[2021-02-22 08:22] LABS: Band Neutrophils % (manual) 21; Lymphocytes % (manual) 10 (10.0-50.0); Metamyelocytes % 2; Monocytes % (manual) 2 (0-12); Myelocytes % 1
[2021-02-22] MEDS ORDERED: ALBUMIN 25% 100 ML IV ONE ×2 (08:30)
[2021-02-22] MEDS: MIDAZOLAM DRIP 50 mg/50mL 50 ML IV SCH ×2 (09:27→14:33)
[2021-02-22] MEDS: amLODIPine BESYLATE 5 MG TAB PO SCH (10:00)
[2021-02-22] MEDS: CARVEDILOL 12.5 MG TAB PO SCH ×2 (10:00→20:35)
[2021-02-22] MEDS: CLOPIDOGREL BISULFATE 75 MG TAB PO SCH (10:00)
[2021-02-22] MEDS: ASCORBIC ACID 500 MG TAB PO SCH (10:41)
[2021-02-22] MEDS: LEVOTHYROXINE SODIUM 100 MCG/5 ML INJ IV SCH (10:42)
[2021-02-22] MEDS: CHOLECALCIFEROL (VITD3) 1,000UNIT=25mCg TAB PO SCH (10:42)
[2021-02-22] MEDS: ZINC SULFATE 220mg CAP or TAB PO SCH (10:42)
[2021-02-22] MEDS: DexAMETHasone SOD PHOS 4 MG/1ML SDV INJ IV SCH (10:42)
[2021-02-22] MEDS: FAMOTIDINE (10MG/ML) 2ML VL IV SCH (10:43)
[2021-02-22] MEDS: EPINEPHrine HCL 250 ML IV SCH (11:45)
[2021-02-22] MEDS: PROPOFOL 100 ML IV SCH (11:45)
[2021-02-22] MEDS: VASOPRESSIN 50 UNITS in D5W 5% 247.5 ML IV SCH (11:45)
[2021-02-22] MEDS: fentaNYL Drip 2500mCg/250mlNS 250 ML IV SCH (14:34)
[2021-02-22] MEDS: MEROPENEM 500MG IVPB 50 ML IV SCH (16:34)
[2021-02-22] MEDS: NOREPINEPHRINE BITARTRATE 32 MG in SODIUM CHL 0.9% 218 ML IV SCH (21:00)
[2021-02-22] MEDS: PHENYLEPHRINE INJ 80 MG in SODIUM CHL 0.9% 242 ML IV SCH (23:00)
[2021-02-23] VITALS (108 sets, daily range): BP systolic 88–126; BP diastolic 47–69
[2021-02-23] MEDS: MIDAZOLAM DRIP 50 mg/50mL 50 ML IV SCH
[2021-02-23 05:02] LABS: Hemoglobin 10.2 g/dL (12.2-16.2); White Blood Cell 8.6 10^3/uL (4.4-10.8)
[2021-02-23 05:05] LABS: Hematocrit 30.5 % (36.0-46.0); Mean Corpuscular Hemoglobin 29.3 pg (28.0-32.0); Mean Corpuscular Hgb Conc. 33.5 g/dL (32.0-36.0); Mean Corpuscular Volume 87.5 fL (80.0-100.0); Red Blood Cells 3.48 10^6/uL (4.0-5.20); Red Cell Distribution Width 17.1 % (11.8-14.3)
[2021-02-23 05:21] LABS: Albumin 1.9 g/dL (3.4-5.0); Anion Gap 10 (5-15); Basophils % (manual) 0 (0.0-2.0); Blast Cells 0; Blood Urea Nitrogen 58 mg/dL (7-18); Calcium 8.5 mg/dL (8.5-10.1); Carbon Dioxide 31 mmol/L (21-32); Chloride 100 mmol/L (98-107); Eosinophils % (manual) 0 (0-7); Glucose 117 mg/dL (74-106); Myelocytes % 0; Potassium 3.3 mmol/L (3.5-5.1); Promyelocytes % 0; Reactive Lymphocytes 0; Sodium 141 mmol/L (136-145)
[2021-02-23 05:22] LABS: Alanine Aminotransferase < 6 U/L (13-56); Aspartate Aminotransferase 10 U/L (15-37); BUN/Creatinine Ratio 15.1; GFR African American 15 mL/min; GFR Non-African American 13 mL/min
[2021-02-23 05:25] LABS: Alkaline Phosphatase 111 U/L (45-117); Bilirubin, Total 0.7 mg/dL (0.2-1.0); Total Protein 5.3 g/dL (6.4-8.2)
[2021-02-23] MEDS: InsuLIN REG 1unit/0.01ml Soln (100units/ml) SC SCH ×4 (06:00→18:00)
[2021-02-23] MEDS: ACCU-CHEK COMFORT CURVE STRIP VI SCH ×4 (06:00→18:00)
[2021-02-23 09:10] LABS: Band Neutrophils % (manual) 9; Lymphocytes % (manual) 3 (10.0-50.0); Metamyelocytes % 1; Monocytes % (manual) 3 (0-12)
[2021-02-23] MEDS: ZINC SULFATE 220mg CAP or TAB PO SCH (10:00)
[2021-02-23] MEDS: LEVOTHYROXINE SODIUM 100 MCG/5 ML INJ IV SCH (10:00)
[2021-02-23] MEDS: ASCORBIC ACID 500 MG TAB PO SCH (10:00)
[2021-02-23] MEDS: amLODIPine BESYLATE 5 MG TAB PO SCH (10:00)
[2021-02-23] MEDS: CLOPIDOGREL BISULFATE 75 MG TAB PO SCH (10:00)
[2021-02-23] MEDS: CHOLECALCIFEROL (VITD3) 1,000UNIT=25mCg TAB PO SCH (10:00)
[2021-02-23] MEDS: DexAMETHasone SOD PHOS 4 MG/1ML SDV INJ IV SCH (10:00)
[2021-02-23] MEDS: CARVEDILOL 12.5 MG TAB PO SCH ×2 (10:00→22:00)
[2021-02-23] MEDS: VASOPRESSIN 50 UNITS in D5W 5% 247.5 ML IV SCH (11:45)
[2021-02-23] MEDS: PROPOFOL 100 ML IV SCH (11:45)
[2021-02-23] MEDS: fentaNYL Drip 2500mCg/250mlNS 250 ML IV SCH (11:45)
[2021-02-23] MEDS: EPINEPHrine HCL 250 ML IV SCH (11:45)
[2021-02-23] MEDS ORDERED: VANCOMYCIN 1GM/250ML 250 ML IV ONE ×2 (12:30→14:34)
[2021-02-23] MEDS: DOPamine 1600MCG/ML D5W 250 ML IV SCH (12:45)
[2021-02-23] MEDS: MEROPENEM 500MG IVPB 50 ML IV SCH (17:00)
[2021-02-23] MEDS: NOREPINEPHRINE BITARTRATE 32 MG in SODIUM CHL 0.9% 218 ML IV SCH (21:00)
[2021-02-23] MEDS: PHENYLEPHRINE INJ 80 MG in SODIUM CHL 0.9% 242 ML IV SCH (23:00)
[2021-02-24] VITALS (105 sets, daily range): BP systolic 88–145; BP diastolic 45–76
[2021-02-24] MEDS: InsuLIN REG 1unit/0.01ml Soln (100units/ml) SC SCH ×4 (06:00→18:00)
[2021-02-24] MEDS: ACCU-CHEK COMFORT CURVE STRIP VI SCH ×4 (06:00→18:00)
[2021-02-24 07:00] LABS: Hemoglobin 9.4 g/dL (12.2-16.2)
[2021-02-24 07:03] LABS: Hematocrit 27.2 % (36.0-46.0); Mean Corpuscular Hemoglobin 30.3 pg (28.0-32.0); Mean Corpuscular Hgb Conc. 34.5 g/dL (32.0-36.0); Mean Corpuscular Volume 87.8 fL (80.0-100.0); Red Blood Cells 3.09 10^6/uL (4.0-5.20); Red Cell Distribution Width 16.9 % (11.8-14.3); White Blood Cell 10.4 10^3/uL (4.4-10.8)
[2021-02-24] MEDS: DOPamine 1600MCG/ML D5W 250 ML IV SCH (07:03)
[2021-02-24 07:07] LABS: Basophils % (manual) 0 (0.0-2.0); Blast Cells 0; Eosinophils % (manual) 0 (0-7); Myelocytes % 0; Promyelocytes % 0; Reactive Lymphocytes 0
[2021-02-24 07:23] LABS: Potassium 3.4 mmol/L (3.5-5.1)
[2021-02-24 07:32] LABS: Albumin 1.7 g/dL (3.4-5.0); BUN/Creatinine Ratio 15.6; Bilirubin, Total 0.6 mg/dL (0.2-1.0); Calcium 8.3 mg/dL (8.5-10.1); Total Protein 5.3 g/dL (6.4-8.2)
[2021-02-24 09:11] LABS: Band Neutrophils % (manual) 4; Lymphocytes % (manual) 6 (10.0-50.0); Metamyelocytes % 1; Monocytes % (manual) 5 (0-12)
[2021-02-24] MEDS: CARVEDILOL 12.5 MG TAB PO SCH ×2 (09:57→22:00)
[2021-02-24] MEDS: CLOPIDOGREL BISULFATE 75 MG TAB PO SCH (09:58)
[2021-02-24] MEDS: amLODIPine BESYLATE 5 MG TAB PO SCH (09:58)
[2021-02-24] MEDS: ASCORBIC ACID 500 MG TAB PO SCH (09:59)
[2021-02-24] MEDS: CHOLECALCIFEROL (VITD3) 1,000UNIT=25mCg TAB PO SCH (09:59)
[2021-02-24] MEDS: LEVOTHYROXINE SODIUM 100 MCG/5 ML INJ IV SCH (09:59)
[2021-02-24] MEDS: ZINC SULFATE 220mg CAP or TAB PO SCH (09:59)
[2021-02-24] MEDS: FAMOTIDINE (10MG/ML) 2ML VL IV SCH (10:00)
[2021-02-24] MEDS: DexAMETHasone SOD PHOS 4 MG/1ML SDV INJ IV SCH (10:01)
[2021-02-24] MEDS: fentaNYL Drip 2500mCg/250mlNS 250 ML IV SCH (11:45)
[2021-02-24] MEDS: PROPOFOL 100 ML IV SCH (11:45)
[2021-02-24] MEDS: VASOPRESSIN 50 UNITS in D5W 5% 247.5 ML IV SCH (11:45)
[2021-02-24] MEDS: EPINEPHrine HCL 250 ML IV SCH (11:45)
[2021-02-24] MEDS: MIDAZOLAM DRIP 50 mg/50mL 50 ML IV SCH (11:46)
[2021-02-24] MEDS: MEROPENEM 500MG IVPB 50 ML IV SCH (16:46)
[2021-02-24] MEDS: PHENYLEPHRINE INJ 80 MG in SODIUM CHL 0.9% 242 ML IV SCH (23:00)
[2021-02-25] VITALS (102 sets, daily range): BP systolic 87–160; BP diastolic 41–90
[2021-02-25] MEDS: NOREPINEPHRINE BITARTRATE 32 MG in SODIUM CHL 0.9% 218 ML IV SCH ×2 (00:29→21:00)
[2021-02-25] MEDS: ACCU-CHEK COMFORT CURVE STRIP VI SCH ×3 (00:31→12:30)
[2021-02-25] MEDS: DOPamine 1600MCG/ML D5W 250 ML IV SCH ×2 (00:35→19:39)
[2021-02-25 05:22] LABS: Hematocrit 31.1 % (36.0-46.0); Hemoglobin 10.3 g/dL (12.2-16.2); Mean Corpuscular Hemoglobin 29.4 pg (28.0-32.0); Mean Corpuscular Hgb Conc. 33.1 g/dL (32.0-36.0); Mean Corpuscular Volume 88.7 fL (80.0-100.0); Red Cell Distribution Width 17.5 % (11.8-14.3); White Blood Cell 11.8 10^3/uL (4.4-10.8)
[2021-02-25 05:38] LABS: Albumin 1.9 g/dL (3.4-5.0); Calcium 8.3 mg/dL (8.5-10.1); Potassium 3.3 mmol/L (3.5-5.1)
[2021-02-25 05:42] LABS: Bilirubin, Total 0.6 mg/dL (0.2-1.0); Total Protein 5.8 g/dL (6.4-8.2)
[2021-02-25] MEDS: fentaNYL Drip 2500mCg/250mlNS 250 ML IV SCH ×2 (05:45→23:00)
[2021-02-25] MEDS: InsuLIN REG 1unit/0.01ml Soln (100units/ml) SC SCH ×3 (05:46→12:00)
[2021-02-25 05:57] LABS: Basophils % (manual) 0 (0.0-2.0); Blast Cells 0; Eosinophils % (manual) 0 (0-7); Myelocytes % 0; Promyelocytes % 0; Reactive Lymphocytes 0
[2021-02-25] MEDS: LEVOTHYROXINE SODIUM 100 MCG/5 ML INJ IV SCH (08:42)
[2021-02-25] MEDS: CARVEDILOL 12.5 MG TAB PO SCH ×2 (08:43→22:00)
[2021-02-25] MEDS: DexAMETHasone SOD PHOS 4 MG/1ML SDV INJ IV SCH (08:43)
[2021-02-25] MEDS: CLOPIDOGREL BISULFATE 75 MG TAB PO SCH (08:44)
[2021-02-25] MEDS: amLODIPine BESYLATE 5 MG TAB PO SCH (08:44)
[2021-02-25] MEDS: CHOLECALCIFEROL (VITD3) 1,000UNIT=25mCg TAB PO SCH (08:44)
[2021-02-25] MEDS: ZINC SULFATE 220mg CAP or TAB PO SCH (08:45)
[2021-02-25] MEDS: ASCORBIC ACID 500 MG TAB PO SCH (08:45)
[2021-02-25 08:55] LABS: Band Neutrophils % (manual) 10; Lymphocytes % (manual) 2 (10.0-50.0); Metamyelocytes % 1; Monocytes % (manual) 3 (0-12)
[2021-02-25] MEDS: VASOPRESSIN 50 UNITS in D5W 5% 247.5 ML IV SCH (11:45)
[2021-02-25] MEDS: PROPOFOL 100 ML IV SCH (11:45)
[2021-02-25] MEDS: EPINEPHrine HCL 250 ML IV SCH (11:45)
[2021-02-25] MEDS: MIDAZOLAM DRIP 50 mg/50mL 50 ML IV SCH ×3 (11:45→23:00)
[2021-02-25] MEDS: MEROPENEM 500MG IVPB 50 ML IV SCH (16:42)
[2021-02-25] MEDS: PHENYLEPHRINE INJ 80 MG in SODIUM CHL 0.9% 242 ML IV SCH (23:00)
[2021-02-26] VITALS (107 sets, daily range): BP systolic 74–155; BP diastolic 28–77
[2021-02-26] MEDS: ACCU-CHEK COMFORT CURVE STRIP VI SCH ×4 (06:00→20:03)
[2021-02-26] MEDS: InsuLIN REG 1unit/0.01ml Soln (100units/ml) SC SCH ×4 (06:00→18:00)
[2021-02-26] MEDS ORDERED: SODIUM CHL 0.9% 1000 ML BAG XX ONE (07:00)
[2021-02-26 07:56] LABS: Basophils # (auto) 0.1 10 ^3/uL (0-0.2); Lymphocytes # (auto) 0.4 10 ^3/uL (0.4-5.4); Neutrophils # (auto) 12.9 10 ^3/uL (1.6-8.6)
[2021-02-26 07:58] LABS: Basophils % (auto) 0.9 % (0.0-2.0); Eosinophils # (auto) 0.2 10 ^3/uL (0-0.8); Eosinophils % (auto) 1.1 % (0.0-7.0); Hematocrit 33.5 % (36.0-46.0); Hemoglobin 10.7 g/dL (12.2-16.2); Mean Corpuscular Hemoglobin 28.6 pg (28.0-32.0); Mean Corpuscular Hgb Conc. 31.8 g/dL (32.0-36.0); Mean Corpuscular Volume 89.8 fL (80.0-100.0); Monocytes # (auto) 0.6 10 ^3/uL (0-1.3); Monocytes % (auto) 4.2 % (0.0-12.0); Neutrophils % (auto) 90.8 % (37.0-80.0); Nucleated Red Blood Cells % 0.2 %; Red Blood Cells 3.74 10^6/uL (4.0-5.20); Red Cell Distribution Width 17.3 % (11.8-14.3); White Blood Cell 14.2 10^3/uL (4.4-10.8)
[2021-02-26 08:03] LABS: Albumin 1.9 g/dL (3.4-5.0); Calcium 8.5 mg/dL (8.5-10.1); Potassium 3.4 mmol/L (3.5-5.1)
[2021-02-26 08:08] LABS: BUN/Creatinine Ratio 16.1; Bilirubin, Total 0.7 mg/dL (0.2-1.0)
[2021-02-26] MEDS ORDERED: GLYCOPYRROLATE 0.2 MG/ML 1ML VIAL ONE (09:40)
[2021-02-26] MEDS ORDERED: LIDOCAINE HCL 2% TOP JELLY 5ML TOP ONE (09:40)
[2021-02-26] MEDS ORDERED: LIDOCAINE 2%HCL (LOCAL ANESTH.) INJ 20ML MDV ONE (09:40)
[2021-02-26] MEDS ORDERED: EPINEPHrine HCL 1 MG/1 ML AMP ONE (09:40)
[2021-02-26] MEDS ORDERED: MIDAZOLAM HCL 5 MG/ML-1ML VIAL ONE (09:41)
[2021-02-26] MEDS ORDERED: fentaNYL CITRATE 100 MCG/2 ML VL ONE (09:41)
[2021-02-26] MEDS ORDERED: ACETYLCYSTEINE 20%(200MG/ML) SOL 4ML NEB ONE (09:45)
[2021-02-26] MEDS: CARVEDILOL 12.5 MG TAB PO SCH ×2 (10:00→21:02)
[2021-02-26] MEDS: amLODIPine BESYLATE 5 MG TAB PO SCH (10:00)
[2021-02-26] MEDS: ASCORBIC ACID 500 MG TAB PO SCH (10:00)
[2021-02-26] MEDS: CHOLECALCIFEROL (VITD3) 1,000UNIT=25mCg TAB PO SCH (10:00)
[2021-02-26] MEDS: CLOPIDOGREL BISULFATE 75 MG TAB PO SCH (10:00)
[2021-02-26] MEDS: ZINC SULFATE 220mg CAP or TAB PO SCH (10:00)
[2021-02-26] MEDS: fentaNYL Drip 2500mCg/250mlNS 250 ML IV SCH (10:33)
[2021-02-26] MEDS: MIDAZOLAM DRIP 50 mg/50mL 50 ML IV SCH ×3 (10:33→21:04)
[2021-02-26] MEDS: EPINEPHrine HCL 250 ML IV SCH (11:45)
[2021-02-26] MEDS: PROPOFOL 100 ML IV SCH ×2 (11:45→21:03)
[2021-02-26] MEDS: VASOPRESSIN 50 UNITS in D5W 5% 247.5 ML IV SCH (11:45)
[2021-02-26] MEDS: DexAMETHasone SOD PHOS 4 MG/1ML SDV INJ IV SCH (11:58)
[2021-02-26] MEDS: LEVOTHYROXINE SODIUM 100 MCG/5 ML INJ IV SCH (11:59)
[2021-02-26] MEDS: FAMOTIDINE (10MG/ML) 2ML VL IV SCH (12:00)
[2021-02-26] MEDS: DOPamine 1600MCG/ML D5W 250 ML IV SCH (13:57)
[2021-02-26] MEDS ORDERED: VANCOMYCIN 1GM/250ML 250 ML IV ONE (16:00)
[2021-02-26] MEDS: MEROPENEM 500MG IVPB 50 ML IV SCH (17:16)
[2021-02-26] MEDS: NOREPINEPHRINE BITARTRATE 32 MG in SODIUM CHL 0.9% 218 ML IV SCH (21:00)
[2021-02-26] MEDS: PHENYLEPHRINE INJ 80 MG in SODIUM CHL 0.9% 242 ML IV SCH (23:00)
[2021-02-27] VITALS (101 sets, daily range): BP systolic 81–119; BP diastolic 29–57
[2021-02-27] MEDS ORDERED: fentaNYL Drip 2500mCg/250mlNS 250 ML IV ONE (01:12)
[2021-02-27] MEDS: fentaNYL Drip 2500mCg/250mlNS 250 ML IV SCH ×2 (02:24→22:15)
[2021-02-27] MEDS: MIDAZOLAM DRIP 50 mg/50mL 50 ML IV SCH ×3 (03:41→15:59)
[2021-02-27 05:53] LABS: Hemoglobin 9.8 g/dL (12.2-16.2)
[2021-02-27 05:57] LABS: Mean Corpuscular Hemoglobin 28.5 pg (28.0-32.0); Mean Corpuscular Hgb Conc. 31.5 g/dL (32.0-36.0); Mean Corpuscular Volume 90.5 fL (80.0-100.0); Red Blood Cells 3.42 10^6/uL (4.0-5.20); Red Cell Distribution Width 17.3 % (11.8-14.3); White Blood Cell 17.8 10^3/uL (4.4-10.8)
[2021-02-27] MEDS: InsuLIN REG 1unit/0.01ml Soln (100units/ml) SC SCH ×4 (06:00→18:00)
[2021-02-27] MEDS: ACCU-CHEK COMFORT CURVE STRIP VI SCH ×5 (06:00→18:03)
[2021-02-27 06:07] LABS: Calcium 8.3 mg/dL (8.5-10.1); Potassium 4.1 mmol/L (3.5-5.1)
[2021-02-27 06:10] LABS: Basophils % (manual) 0 (0.0-2.0); Blast Cells 0; Eosinophils % (manual) 0 (0-7); Metamyelocytes % 0; Promyelocytes % 0; Reactive Lymphocytes 0
[2021-02-27 06:12] LABS: BUN/Creatinine Ratio 14.6; Bilirubin, Total 0.6 mg/dL (0.2-1.0); Total Protein 5.9 g/dL (6.4-8.2)
[2021-02-27 06:51] LABS: Band Neutrophils % (manual) 15; Lymphocytes % (manual) 3 (10.0-50.0); Myelocytes % 2
[2021-02-27 06:53] LABS: Monocytes % (manual) 3 (0-12)
[2021-02-27] MEDS: NOREPINEPHRINE BITARTRATE 32 MG in SODIUM CHL 0.9% 218 ML IV SCH ×2 (08:00→15:58)
[2021-02-27] MEDS: ASCORBIC ACID 500 MG TAB PO SCH (10:00)
[2021-02-27] MEDS: amLODIPine BESYLATE 5 MG TAB PO SCH (10:00)
[2021-02-27] MEDS: ZINC SULFATE 220mg CAP or TAB PO SCH ×2 (10:00→10:43)
[2021-02-27] MEDS: CARVEDILOL 12.5 MG TAB PO SCH ×2 (10:00→19:59)
[2021-02-27] MEDS: LEVOTHYROXINE SODIUM 100 MCG/5 ML INJ IV SCH ×2 (10:00→10:42)
[2021-02-27] MEDS: CLOPIDOGREL BISULFATE 75 MG TAB PO SCH (10:00)
[2021-02-27] MEDS: CHOLECALCIFEROL (VITD3) 1,000UNIT=25mCg TAB PO SCH (10:00)
[2021-02-27] MEDS: DexAMETHasone SOD PHOS 4 MG/1ML SDV INJ IV SCH ×2 (10:00→10:41)
[2021-02-27] MEDS: MEROPENEM 500MG IVPB 50 ML IV SCH ×2 (17:00→18:02)
[2021-02-27] MEDS: EPINEPHrine HCL 250 ML IV SCH (18:00)
[2021-02-27] MEDS: PHENYLEPHRINE INJ 80 MG in SODIUM CHL 0.9% 242 ML IV SCH (20:15)
[2021-02-27] MEDS ORDERED: SODIUM BICARBONATE 8.4 % INJ 50ML VIAL IV ONE (20:30)
[2021-02-27] MEDS ORDERED: SODIUM BICARBONATE 8.4% INJ 50ML SYRINGE ONE (20:35)
[2021-02-28] VITALS (103 sets, daily range): BP systolic 96–190; BP diastolic 36–80
[2021-02-28] MEDS: SODIUM BICARBONATE 8.4 % INJ 50ML VIAL IV SCH ×3 (00:15→05:45)
[2021-02-28] MEDS: EPINEPHrine HCL 250 ML IV SCH (00:16)
[2021-02-28] MEDS: ACCU-CHEK COMFORT CURVE STRIP VI SCH ×4 (00:46→17:40)
[2021-02-28] MEDS: MIDAZOLAM DRIP 50 mg/50mL 50 ML IV SCH ×2 (02:04→20:44)
[2021-02-28] MEDS: DOPamine 1600MCG/ML D5W 250 ML IV SCH ×2 (02:33→20:43)
[2021-02-28 04:42] LABS: Hematocrit 30.3 % (36.0-46.0); Hemoglobin 9.4 g/dL (12.2-16.2); Mean Corpuscular Hemoglobin 28.5 pg (28.0-32.0); Mean Corpuscular Hgb Conc. 31.1 g/dL (32.0-36.0); Mean Corpuscular Volume 91.6 fL (80.0-100.0); Red Blood Cells 3.31 10^6/uL (4.0-5.20); Red Cell Distribution Width 17.2 % (11.8-14.3); White Blood Cell 22.8 10^3/uL (4.4-10.8)
[2021-02-28 04:45] LABS: Basophils % (manual) 0 (0.0-2.0); Blast Cells 0; Metamyelocytes % 0; Myelocytes % 0; Promyelocytes % 0; Reactive Lymphocytes 0
[2021-02-28 04:48] LABS: Albumin 1.9 g/dL (3.4-5.0); BUN/Creatinine Ratio 14.3; Calcium 8.2 mg/dL (8.5-10.1)
[2021-02-28 04:51] LABS: Bilirubin, Total 0.6 mg/dL (0.2-1.0); Total Protein 5.8 g/dL (6.4-8.2)
[2021-02-28] MEDS: MEROPENEM 500MG IVPB 50 ML IV SCH ×2 (05:45→17:56)
[2021-02-28] MEDS: InsuLIN REG 1unit/0.01ml Soln (100units/ml) SC SCH ×4 (05:47→17:40)
[2021-02-28 06:47] LABS: Band Neutrophils % (manual) 20; Eosinophils % (manual) 1 (0-7); Lymphocytes % (manual) 3 (10.0-50.0); Monocytes % (manual) 9 (0-12)
[2021-02-28] MEDS ORDERED: SODIUM CHL 0.9% 1000 ML BAG XX ONE (07:00)
[2021-02-28] MEDS: CARVEDILOL 12.5 MG TAB PO SCH ×2 (07:58→20:42)
[2021-02-28] MEDS: CLOPIDOGREL BISULFATE 75 MG TAB PO SCH (07:58)
[2021-02-28] MEDS: ZINC SULFATE 220mg CAP or TAB PO SCH (07:58)
[2021-02-28] MEDS: amLODIPine BESYLATE 5 MG TAB PO SCH (07:58)
[2021-02-28] MEDS: ASCORBIC ACID 500 MG TAB PO SCH (07:59)
[2021-02-28] MEDS: CHOLECALCIFEROL (VITD3) 1,000UNIT=25mCg TAB PO SCH (07:59)
[2021-02-28] MEDS: DexAMETHasone SOD PHOS 4 MG/1ML SDV INJ IV SCH (09:09)
[2021-02-28] MEDS: LEVOTHYROXINE SODIUM 100 MCG/5 ML INJ IV SCH (09:09)
[2021-02-28] MEDS: PROPOFOL 100 ML IV SCH (09:09)
[2021-02-28] MEDS: FAMOTIDINE (10MG/ML) 2ML VL IV SCH (09:09)
[2021-02-28] MEDS: fentaNYL Drip 2500mCg/250mlNS 250 ML IV SCH (09:10)
[2021-02-28] MEDS: VASOPRESSIN 50 UNITS in D5W 5% 247.5 ML IV SCH (13:44)
[2021-02-28] MEDS: NOREPINEPHRINE BITARTRATE 32 MG in SODIUM CHL 0.9% 218 ML IV SCH (21:00)
[2021-02-28] MEDS: PHENYLEPHRINE INJ 80 MG in SODIUM CHL 0.9% 242 ML IV SCH (23:00)
[2021-03-01] VITALS (102 sets, daily range): BP systolic 93–158; BP diastolic 45–88
[2021-03-01] MEDS: fentaNYL Drip 2500mCg/250mlNS 250 ML IV SCH ×2 (01:04→13:36)
[2021-03-01] MEDS: MIDAZOLAM DRIP 50 mg/50mL 50 ML IV SCH ×5 (01:28→22:00)
[2021-03-01] MEDS: MEROPENEM 500MG IVPB 50 ML IV SCH ×2 (05:24→16:55)
[2021-03-01] MEDS: InsuLIN REG 1unit/0.01ml Soln (100units/ml) SC SCH ×4 (06:00→17:40)
[2021-03-01] MEDS: ACCU-CHEK COMFORT CURVE STRIP VI SCH ×4 (06:00→17:39)
[2021-03-01] MEDS: PROPOFOL 100 ML IV SCH (06:00)
[2021-03-01 07:23] LABS: BUN/Creatinine Ratio 13.6; Calcium 8.1 mg/dL (8.5-10.1); Potassium 3.8 mmol/L (3.5-5.1)
[2021-03-01 07:25] LABS: Basophils # (auto) 0 10 ^3/uL (0-0.2); Basophils % (auto) 0.2 % (0.0-2.0); Eosinophils # (auto) 0 10 ^3/uL (0-0.8); Eosinophils % (auto) 0.1 % (0.0-7.0); Hemoglobin 7.8 g/dL (12.2-16.2); Lymphocytes # (auto) 0.3 10 ^3/uL (0.4-5.4); Lymphocytes % (auto) 2.7 % (10.0-50.0); Mean Corpuscular Hemoglobin 28.7 pg (28.0-32.0); Mean Corpuscular Hgb Conc. 31.3 g/dL (32.0-36.0); Mean Corpuscular Volume 91.5 fL (80.0-100.0); Monocytes # (auto) 0.9 10 ^3/uL (0-1.3); Monocytes % (auto) 7.4 % (0.0-12.0); Neutrophils # (auto) 10.6 10 ^3/uL (1.6-8.6); Neutrophils % (auto) 89.6 % (37.0-80.0); Nucleated Red Blood Cells % 0.1 %; Red Blood Cells 2.73 10^6/uL (4.0-5.20); Red Cell Distribution Width 17.7 % (11.8-14.3); White Blood Cell 11.9 10^3/uL (4.4-10.8)
[2021-03-01] MEDS: LEVOTHYROXINE SODIUM 100 MCG/5 ML INJ IV SCH (08:37)
[2021-03-01] MEDS: DexAMETHasone SOD PHOS 4 MG/1ML SDV INJ IV SCH (08:38)
[2021-03-01] MEDS: ZINC SULFATE 220mg CAP or TAB PO SCH (08:38)
[2021-03-01] MEDS: CHOLECALCIFEROL (VITD3) 1,000UNIT=25mCg TAB PO SCH (08:38)
[2021-03-01] MEDS: ASCORBIC ACID 500 MG TAB PO SCH (08:38)
[2021-03-01] MEDS ORDERED: VANCOMYCIN 500 MG in D5W 5% 100 ML IV ONE (09:00)
[2021-03-01] MEDS: CLOPIDOGREL BISULFATE 75 MG TAB PO SCH (10:00)
[2021-03-01] MEDS: amLODIPine BESYLATE 5 MG TAB PO SCH (10:00)
[2021-03-01] MEDS: CARVEDILOL 12.5 MG TAB PO SCH ×2 (10:00→21:51)
[2021-03-01] MEDS: EPINEPHrine HCL 250 ML IV SCH (11:45)
[2021-03-01] MEDS: VASOPRESSIN 50 UNITS in D5W 5% 247.5 ML IV SCH (11:45)
[2021-03-01] MEDS: DOPamine 1600MCG/ML D5W 250 ML IV SCH (15:09)
[2021-03-01] MEDS: NOREPINEPHRINE BITARTRATE 32 MG in SODIUM CHL 0.9% 218 ML IV SCH (21:00)
[2021-03-01] MEDS: Pro-Stat SF 30ml Vanilla GT SCH (21:13)
[2021-03-01] MEDS: PHENYLEPHRINE INJ 80 MG in SODIUM CHL 0.9% 242 ML IV SCH (23:00)
[2021-03-02] VITALS (103 sets, daily range): BP systolic 18–146; BP diastolic 27–73
[2021-03-02] MEDS: MEROPENEM 500MG IVPB 50 ML IV SCH ×2 (05:00→18:13)
[2021-03-02] MEDS: InsuLIN REG 1unit/0.01ml Soln (100units/ml) SC SCH ×4 (06:00→18:00)
[2021-03-02] MEDS: ACCU-CHEK COMFORT CURVE STRIP VI SCH ×4 (06:19→18:13)
[2021-03-02] MEDS: DOPamine 1600MCG/ML D5W 250 ML IV SCH (09:27)
[2021-03-02] MEDS: PROPOFOL 100 ML IV SCH ×2 (09:42→18:00)
[2021-03-02] MEDS: MIDAZOLAM DRIP 50 mg/50mL 50 ML IV SCH ×3 (09:43→21:00)
[2021-03-02] MEDS: CARVEDILOL 12.5 MG TAB PO SCH ×2 (10:00→22:00)
[2021-03-02] MEDS: Pro-Stat SF 30ml Vanilla GT SCH ×2 (10:00→22:00)
[2021-03-02] MEDS: amLODIPine BESYLATE 5 MG TAB PO SCH (10:00)
[2021-03-02] MEDS: CLOPIDOGREL BISULFATE 75 MG TAB PO SCH (10:00)
[2021-03-02] MEDS: DexAMETHasone SOD PHOS 4 MG/1ML SDV INJ IV SCH (10:09)
[2021-03-02] MEDS: LEVOTHYROXINE SODIUM 100 MCG/5 ML INJ IV SCH (10:10)
[2021-03-02] MEDS: ASCORBIC ACID 500 MG TAB PO SCH (10:10)
[2021-03-02] MEDS: CHOLECALCIFEROL (VITD3) 1,000UNIT=25mCg TAB PO SCH (10:10)
[2021-03-02] MEDS: ZINC SULFATE 220mg CAP or TAB PO SCH (10:10)
[2021-03-02] MEDS: FAMOTIDINE (10MG/ML) 2ML VL IV SCH (10:12)
[2021-03-02] MEDS: VASOPRESSIN 50 UNITS in D5W 5% 247.5 ML IV SCH (11:45)
[2021-03-02] MEDS: EPINEPHrine HCL 250 ML IV SCH (11:45)
[2021-03-02] MEDS: Vital AF 1.2 Cal 1 liter bottle GT SCH (19:00)
[2021-03-02] MEDS: fentaNYL Drip 2500mCg/250mlNS 250 ML IV SCH (20:00)
[2021-03-02] MEDS: NOREPINEPHRINE BITARTRATE 32 MG in SODIUM CHL 0.9% 218 ML IV SCH (21:00)
[2021-03-02] MEDS: PHENYLEPHRINE INJ 80 MG in SODIUM CHL 0.9% 242 ML IV SCH (23:00)
[2021-03-03] VITALS (106 sets, daily range): BP systolic 84–179; BP diastolic 36–83
[2021-03-03] MEDS: PROPOFOL 100 ML IV SCH (02:00)
[2021-03-03] MEDS: DOPamine 1600MCG/ML D5W 250 ML IV SCH ×2 (03:45→22:03)
[2021-03-03] MEDS: MEROPENEM 500MG IVPB 50 ML IV SCH ×2 (05:00→17:00)
[2021-03-03 05:16] LABS: Eosinophils # (auto) 0 10 ^3/uL (0-0.8); Hemoglobin 7.4 g/dL (12.2-16.2); Lymphocytes # (auto) 0.4 10 ^3/uL (0.4-5.4); Nucleated Red Blood Cells % 0.2 %; Red Blood Cells 2.55 10^6/uL (4.0-5.20)
[2021-03-03 05:20] LABS: Basophils # (auto) 0 10 ^3/uL (0-0.2); Basophils % (auto) 0.2 % (0.0-2.0); Eosinophils % (auto) 0.4 % (0.0-7.0); Hematocrit 23.1 % (36.0-46.0); Lymphocytes % (auto) 4.6 % (10.0-50.0); Mean Corpuscular Hemoglobin 28.9 pg (28.0-32.0); Mean Corpuscular Volume 90.5 fL (80.0-100.0); Monocytes # (auto) 0.6 10 ^3/uL (0-1.3); Monocytes % (auto) 6.7 % (0.0-12.0); Neutrophils # (auto) 8.3 10 ^3/uL (1.6-8.6); Neutrophils % (auto) 88.1 % (37.0-80.0); Red Cell Distribution Width 17.5 % (11.8-14.3); White Blood Cell 9.4 10^3/uL (4.4-10.8)
[2021-03-03] MEDS: InsuLIN REG 1unit/0.01ml Soln (100units/ml) SC SCH ×4 (06:00→17:07)
[2021-03-03] MEDS: ACCU-CHEK COMFORT CURVE STRIP VI SCH ×4 (06:00→17:07)
[2021-03-03] MEDS: DexAMETHasone SOD PHOS 4 MG/1ML SDV INJ IV SCH (09:31)
[2021-03-03] MEDS: Pro-Stat SF 30ml Vanilla GT SCH ×2 (09:31→22:00)
[2021-03-03] MEDS: amLODIPine BESYLATE 5 MG TAB PO SCH (10:00)
[2021-03-03] MEDS: CLOPIDOGREL BISULFATE 75 MG TAB PO SCH (10:00)
[2021-03-03] MEDS: ASPirin 81 mg TAB PO SCH (10:00)
[2021-03-03] MEDS: CARVEDILOL 12.5 MG TAB PO SCH ×2 (10:00→22:00)
[2021-03-03] MEDS: EPINEPHrine HCL 250 ML IV SCH (10:02)
[2021-03-03] MEDS: VASOPRESSIN 50 UNITS in D5W 5% 247.5 ML IV SCH (10:02)
[2021-03-03] MEDS: hydrALAZINE HCL 20 MG/ML VL IV PRN (14:48)
[2021-03-03] MEDS ORDERED: VANCOMYCIN 500 MG in D5W 5% 100 ML IV ONE (16:00)
[2021-03-03] MEDS: NOREPINEPHRINE BITARTRATE 32 MG in SODIUM CHL 0.9% 218 ML IV SCH (21:00)
[2021-03-03] MEDS: ATORVASTATIN 20 MG TAB PO SCH (22:00)
[2021-03-03] MEDS: fentaNYL Drip 2500mCg/250mlNS 250 ML IV SCH (22:00)
[2021-03-03] MEDS: PHENYLEPHRINE INJ 80 MG in SODIUM CHL 0.9% 242 ML IV SCH (23:00)
[2021-03-04] VITALS (102 sets, daily range): BP systolic 80–136; BP diastolic 35–67
[2021-03-04] MEDS: PROPOFOL 100 ML IV SCH ×2 (02:00→12:29)
[2021-03-04] MEDS: MEROPENEM 500MG IVPB 50 ML IV SCH ×2 (05:00→18:36)
[2021-03-04 05:57] LABS: Hematocrit 23.6 % (36.0-46.0); Hemoglobin 7.5 g/dL (12.2-16.2); Mean Corpuscular Hemoglobin 29.1 pg (28.0-32.0); Mean Corpuscular Hgb Conc. 31.9 g/dL (32.0-36.0); Mean Corpuscular Volume 91.4 fL (80.0-100.0); Red Blood Cells 2.59 10^6/uL (4.0-5.20); Red Cell Distribution Width 17.2 % (11.8-14.3); White Blood Cell 9.6 10^3/uL (4.4-10.8)
[2021-03-04] MEDS: ACCU-CHEK COMFORT CURVE STRIP VI SCH ×4 (06:00→17:30)
[2021-03-04] MEDS: InsuLIN REG 1unit/0.01ml Soln (100units/ml) SC SCH ×4 (06:00→17:30)
[2021-03-04 06:15] LABS: Basophils % (manual) 0 (0.0-2.0); Blast Cells 0; Metamyelocytes % 0; Promyelocytes % 0; Reactive Lymphocytes 0
[2021-03-04] MEDS ORDERED: SODIUM CHL 0.9% 1000 ML BAG XX ONE (07:00)
[2021-03-04 07:06] LABS: Eosinophils % (manual) 3 (0-7); Lymphocytes % (manual) 9 (10.0-50.0); Myelocytes % 5
[2021-03-04 07:07] LABS: Band Neutrophils % (manual) 14; Monocytes % (manual) 5 (0-12)
[2021-03-04] MEDS ORDERED: ALBUMIN 25% 100 ML IV ONE ×2 (09:15)
[2021-03-04] MEDS: CARVEDILOL 12.5 MG TAB PO SCH ×2 (10:00→22:00)
[2021-03-04] MEDS: amLODIPine BESYLATE 5 MG TAB PO SCH (10:00)
[2021-03-04] MEDS: EPINEPHrine HCL 250 ML IV SCH (11:45)
[2021-03-04] MEDS: VASOPRESSIN 50 UNITS in D5W 5% 247.5 ML IV SCH (11:45)
[2021-03-04] MEDS: DexAMETHasone SOD PHOS 4 MG/1ML SDV INJ IV SCH (12:00)
[2021-03-04] MEDS: ASPirin 81 mg TAB PO SCH (12:00)
[2021-03-04] MEDS: CLOPIDOGREL BISULFATE 75 MG TAB PO SCH (12:00)
[2021-03-04] MEDS: Pro-Stat SF 30ml Vanilla GT SCH ×2 (12:00→22:03)
[2021-03-04] MEDS: NOREPINEPHRINE 8 MG/250ML KIT 250 ML IV SCH (12:20)
[2021-03-04] MEDS: fentaNYL Drip 2500mCg/250mlNS 250 ML IV SCH (12:21)
[2021-03-04] MEDS: FAMOTIDINE (10MG/ML) 2ML VL IV SCH (12:22)
[2021-03-04] MEDS: MIDAZOLAM DRIP 50 mg/50mL 50 ML IV SCH (15:30)
[2021-03-04] MEDS ORDERED: VANCOMYCIN 500 MG in D5W 5% 100 ML IV ONE (16:00)
[2021-03-04] MEDS: DOPamine 1600MCG/ML D5W 250 ML IV SCH (16:21)
[2021-03-04] MEDS ORDERED: EPOETIN ALFA-EPBX 10,000 UNIT/1ML VIAL SC ONE (21:00)
[2021-03-04] MEDS: METOCLOPRAMIDE HCL 5MG/ml INJ 2ml VIAL IV SCH (22:00)
[2021-03-04] MEDS: ATORVASTATIN 20 MG TAB PO SCH (22:04)
[2021-03-04] MEDS: PHENYLEPHRINE INJ 80 MG in SODIUM CHL 0.9% 242 ML IV SCH (22:04)
[2021-03-05] VITALS (96 sets, daily range): BP systolic 85–145; BP diastolic 37–69
[2021-03-05] MEDS: ACCU-CHEK COMFORT CURVE STRIP VI SCH ×4 (00:01→17:09)
[2021-03-05] MEDS: PROPOFOL 100 ML IV SCH ×2 (05:00→10:33)
[2021-03-05] MEDS: fentaNYL Drip 2500mCg/250mlNS 250 ML IV SCH ×2 (05:00→17:45)
[2021-03-05] MEDS: MEROPENEM 500MG IVPB 50 ML IV SCH ×2 (05:22→17:04)
[2021-03-05] MEDS: InsuLIN REG 1unit/0.01ml Soln (100units/ml) SC SCH ×4 (05:23→17:35)
[2021-03-05] MEDS: METOCLOPRAMIDE HCL 5MG/ml INJ 2ml VIAL IV SCH ×4 (05:23→17:35)
[2021-03-05] MEDS: Vital AF 1.2 Cal 1 liter bottle GT SCH (05:26)
[2021-03-05 06:39] LABS: Cholesterol 96 mg/dL (< 200); LDL Cholesterol 53 mg/dL (< 100); Triglycerides 178 mg/dL (< 150)
[2021-03-05 07:22] LABS: Basophils # (auto) 0.3 10 ^3/uL (0-0.2); Basophils % (auto) 2.5 % (0.0-2.0); Eosinophils # (auto) 0.1 10 ^3/uL (0-0.8); Eosinophils % (auto) 1.2 % (0.0-7.0); Hematocrit 24.5 % (36.0-46.0); Hemoglobin 7.5 g/dL (12.2-16.2); Lymphocytes # (auto) 0.4 10 ^3/uL (0.4-5.4); Lymphocytes % (auto) 3.2 % (10.0-50.0); Mean Corpuscular Hemoglobin 28.6 pg (28.0-32.0); Mean Corpuscular Hgb Conc. 30.8 g/dL (32.0-36.0); Mean Corpuscular Volume 92.9 fL (80.0-100.0); Monocytes # (auto) 0.5 10 ^3/uL (0-1.3); Monocytes % (auto) 4.5 % (0.0-12.0); Neutrophils # (auto) 10.6 10 ^3/uL (1.6-8.6); Neutrophils % (auto) 88.6 % (37.0-80.0); Nucleated Red Blood Cells % 0.1 %; Red Blood Cells 2.64 10^6/uL (4.0-5.20); Red Cell Distribution Width 17.7 % (11.8-14.3); White Blood Cell 11.9 10^3/uL (4.4-10.8)
[2021-03-05 09:38] LABS: HDL Cholesterol 24 mg/dL (40-59)
[2021-03-05] MEDS: amLODIPine BESYLATE 5 MG TAB PO SCH (10:00)
[2021-03-05] MEDS: ASPirin 81 mg TAB PO SCH ×2 (10:00→10:32)
[2021-03-05] MEDS: CLOPIDOGREL BISULFATE 75 MG TAB PO SCH (10:00)
[2021-03-05] MEDS: CARVEDILOL 12.5 MG TAB PO SCH (10:00)
[2021-03-05] MEDS: DexAMETHasone SOD PHOS 4 MG/1ML SDV INJ IV SCH (10:31)
[2021-03-05] MEDS: Pro-Stat SF 30ml Vanilla GT SCH ×2 (10:32→21:34)
[2021-03-05] MEDS: DOPamine 1600MCG/ML D5W 250 ML IV SCH (10:39)
[2021-03-05] MEDS: VASOPRESSIN 50 UNITS in D5W 5% 247.5 ML IV SCH (11:45)
[2021-03-05] MEDS: EPINEPHrine HCL 250 ML IV SCH (11:45)
[2021-03-05] MEDS: NOREPINEPHRINE 8 MG/250ML KIT 250 ML IV SCH (12:00)
[2021-03-05] MEDS: MIDAZOLAM DRIP 50 mg/50mL 50 ML IV SCH (15:30)
[2021-03-05] MEDS: ATORVASTATIN 20 MG TAB PO SCH (21:34)
[2021-03-05] MEDS: PHENYLEPHRINE INJ 80 MG in SODIUM CHL 0.9% 242 ML IV SCH (21:34)
[2021-03-06] VITALS (107 sets, daily range): BP systolic 94–130; BP diastolic 41–62
[2021-03-06] MEDS: METOCLOPRAMIDE HCL 5MG/ml INJ 2ml VIAL IV SCH ×4 (00:37→17:41)
[2021-03-06] MEDS: PROPOFOL 100 ML IV SCH ×4 (00:38→21:03)
[2021-03-06] MEDS: DOPamine 1600MCG/ML D5W 250 ML IV SCH ×2 (04:57→23:15)
[2021-03-06 05:25] LABS: Hemoglobin 7.2 g/dL (12.2-16.2)
[2021-03-06] MEDS: ACCU-CHEK COMFORT CURVE STRIP VI SCH ×4 (05:52→17:41)
[2021-03-06] MEDS: InsuLIN REG 1unit/0.01ml Soln (100units/ml) SC SCH ×4 (05:52→18:00)
[2021-03-06] MEDS: MEROPENEM 500MG IVPB 50 ML IV SCH ×2 (05:52→17:41)
[2021-03-06 06:03] LABS: Calcium 8.1 mg/dL (8.5-10.1); Chloride 103 mmol/L (98-107); Potassium 3.6 mmol/L (3.5-5.1); Sodium 141 mmol/L (136-145)
[2021-03-06 06:08] LABS: Alanine Aminotransferase < 6 U/L (13-56); Albumin 2.1 g/dL (3.4-5.0); Alkaline Phosphatase 104 U/L (45-117); Anion Gap 6 (5-15); Aspartate Aminotransferase 15 U/L (15-37); BUN/Creatinine Ratio 14.7; Bilirubin, Total 0.5 mg/dL (0.2-1.0); Blood Urea Nitrogen 48 mg/dL (7-18); Carbon Dioxide 32 mmol/L (21-32); GFR African American 19 mL/min; GFR Non-African American 15 mL/min; Glucose 81 mg/dL (74-106); Total Protein 5.5 g/dL (6.4-8.2)
[2021-03-06] MEDS ORDERED: SODIUM CHL 0.9% 1000 ML BAG XX ONE (07:00)
[2021-03-06] MEDS: DexAMETHasone SOD PHOS 4 MG/1ML SDV INJ IV SCH (10:04)
[2021-03-06] MEDS: Pro-Stat SF 30ml Vanilla GT SCH ×2 (10:04→21:37)
[2021-03-06] MEDS: FAMOTIDINE (10MG/ML) 2ML VL IV SCH (10:04)
[2021-03-06] MEDS: EPINEPHrine HCL 250 ML IV SCH (10:52)
[2021-03-06] MEDS: VASOPRESSIN 50 UNITS in D5W 5% 247.5 ML IV SCH (10:52)
[2021-03-06 10:53] LABS: Hepatitis B Surface Antibody Negative (Negative)
[2021-03-06] MEDS: NOREPINEPHRINE 8 MG/250ML KIT 250 ML IV SCH (12:00)
[2021-03-06] MEDS: fentaNYL Drip 2500mCg/250mlNS 250 ML IV SCH (13:02)
[2021-03-06] MEDS: MIDAZOLAM DRIP 50 mg/50mL 50 ML IV SCH (15:30)
[2021-03-06] MEDS ORDERED: VANCOMYCIN 500 MG in D5W 5% 100 ML IV ONE (16:00)
[2021-03-06] MEDS ORDERED: EPOETIN ALFA-EPBX 10,000 UNIT/1ML VIAL SC ONE (21:00)
[2021-03-06] MEDS: ATORVASTATIN 20 MG TAB PO SCH (21:38)
[2021-03-06] MEDS: PHENYLEPHRINE INJ 80 MG in SODIUM CHL 0.9% 242 ML IV SCH (23:00)
[2021-03-07] VITALS (103 sets, daily range): BP systolic 74–151; BP diastolic 35–94
[2021-03-07] MEDS: ACCU-CHEK COMFORT CURVE STRIP VI SCH ×4 (00:26→18:16)
[2021-03-07] MEDS: METOCLOPRAMIDE HCL 5MG/ml INJ 2ml VIAL IV SCH ×4 (00:27→18:00)
[2021-03-07] MEDS: NOREPINEPHRINE 8 MG/250ML KIT 250 ML IV SCH (00:49)
[2021-03-07] MEDS: InsuLIN REG 1unit/0.01ml Soln (100units/ml) SC SCH ×4 (06:00→18:00)
[2021-03-07] MEDS: MEROPENEM 500MG IVPB 50 ML IV SCH ×2 (06:00→16:49)
[2021-03-07 06:59] LABS: Basophils # (auto) 0.1 10 ^3/uL (0-0.2); Basophils % (auto) 0.7 % (0.0-2.0); Eosinophils # (auto) 0.2 10 ^3/uL (0-0.8); Eosinophils % (auto) 1.9 % (0.0-7.0); Hematocrit 23.5 % (36.0-46.0); Hemoglobin 7.5 g/dL (12.2-16.2); Lymphocytes % (auto) 8.8 % (10.0-50.0); Mean Corpuscular Hemoglobin 29.5 pg (28.0-32.0); Mean Corpuscular Hgb Conc. 31.8 g/dL (32.0-36.0); Mean Corpuscular Volume 92.7 fL (80.0-100.0); Monocytes # (auto) 0.7 10 ^3/uL (0-1.3); Monocytes % (auto) 5.7 % (0.0-12.0); Neutrophils # (auto) 9.5 10 ^3/uL (1.6-8.6); Neutrophils % (auto) 82.9 % (37.0-80.0); Red Blood Cells 2.54 10^6/uL (4.0-5.20); Red Cell Distribution Width 17.9 % (11.8-14.3); White Blood Cell 11.5 10^3/uL (4.4-10.8)
[2021-03-07] MEDS ORDERED: ALBUMIN 25% 100 ML IV ONE (07:00)
[2021-03-07 07:36] LABS: Chloride 102 mmol/L (98-107); Potassium 3.7 mmol/L (3.5-5.1); Sodium 140 mmol/L (136-145)
[2021-03-07 07:46] LABS: Alanine Aminotransferase < 6 U/L (13-56); Albumin 2.2 g/dL (3.4-5.0); Alkaline Phosphatase 118 U/L (45-117); Anion Gap 7 (5-15); Aspartate Aminotransferase 17 U/L (15-37); BUN/Creatinine Ratio 15.4; Bilirubin, Total 0.5 mg/dL (0.2-1.0); Blood Urea Nitrogen 54 mg/dL (7-18); Calcium 8.2 mg/dL (8.5-10.1); Carbon Dioxide 31 mmol/L (21-32); GFR African American 17 mL/min; GFR Non-African American 14 mL/min; Glucose 95 mg/dL (74-106)
[2021-03-07] MEDS ORDERED: SODIUM CHL 0.9% 1000 ML BAG XX ONE (09:00)
[2021-03-07] MEDS ORDERED: IOHEXOL 350 MG/ML 100ML IJ ONE (09:24)
[2021-03-07] MEDS: Pro-Stat SF 30ml Vanilla GT SCH ×2 (09:44→21:27)
[2021-03-07] MEDS: DexAMETHasone SOD PHOS 4 MG/1ML SDV INJ IV SCH (09:44)
[2021-03-07] MEDS: PROPOFOL 100 ML IV SCH (10:56)
[2021-03-07] MEDS: EPINEPHrine HCL 250 ML IV SCH (11:45)
[2021-03-07] MEDS: VASOPRESSIN 50 UNITS in D5W 5% 247.5 ML IV SCH (11:45)
[2021-03-07] MEDS: MIDAZOLAM DRIP 50 mg/50mL 50 ML IV SCH (15:30)
[2021-03-07] MEDS: DOPamine 1600MCG/ML D5W 250 ML IV SCH (17:33)
[2021-03-07] MEDS ORDERED: EPOETIN ALFA-EPBX 10,000 UNIT/1ML VIAL SC ONE (21:00)
[2021-03-07] MEDS: ATORVASTATIN 20 MG TAB PO SCH (21:27)
[2021-03-07] MEDS: fentaNYL Drip 2500mCg/250mlNS 250 ML IV SCH (22:15)
[2021-03-07] MEDS: PHENYLEPHRINE INJ 80 MG in SODIUM CHL 0.9% 242 ML IV SCH (23:00)
[2021-03-08] VITALS (105 sets, daily range): BP systolic 89–144; BP diastolic 36–68
[2021-03-08] MEDS: PROPOFOL 100 ML IV SCH ×3 (01:00→14:42)
[2021-03-08] MEDS: METOCLOPRAMIDE HCL 5MG/ml INJ 2ml VIAL IV SCH ×4 (01:15→18:17)
[2021-03-08] MEDS: MEROPENEM 500MG IVPB 50 ML IV SCH ×2 (04:25→17:00)
[2021-03-08 05:29] LABS: Alanine Aminotransferase < 6 U/L (13-56); Anion Gap 8 (5-15); Aspartate Aminotransferase 10 U/L (15-37); BUN/Creatinine Ratio 13.5; Blood Urea Nitrogen 41 mg/dL (7-18); Calcium 7.7 mg/dL (8.5-10.1); Carbon Dioxide 31 mmol/L (21-32); Chloride 102 mmol/L (98-107); GFR African American 20 mL/min; GFR Non-African American 17 mL/min; Glucose 75 mg/dL (74-106); Potassium 3.5 mmol/L (3.5-5.1); Sodium 141 mmol/L (136-145)
[2021-03-08 05:32] LABS: Alkaline Phosphatase 105 U/L (45-117); Bilirubin, Total 0.5 mg/dL (0.2-1.0); Total Protein 5.6 g/dL (6.4-8.2)
[2021-03-08] MEDS: ACCU-CHEK COMFORT CURVE STRIP VI SCH ×4 (05:51→17:41)
[2021-03-08] MEDS: InsuLIN REG 1unit/0.01ml Soln (100units/ml) SC SCH ×4 (05:51→17:41)
[2021-03-08] MEDS: NOREPINEPHRINE 8 MG/250ML KIT 250 ML IV SCH (05:55)
[2021-03-08] MEDS ORDERED: SODIUM CHL 0.9% 1000 ML BAG XX ONE (07:00)
[2021-03-08] MEDS: Pro-Stat SF 30ml Vanilla GT SCH ×2 (09:46→21:05)
[2021-03-08] MEDS: FAMOTIDINE (10MG/ML) 2ML VL IV SCH (09:46)
[2021-03-08] MEDS: DexAMETHasone SOD PHOS 4 MG/1ML SDV INJ IV SCH (09:46)
[2021-03-08] MEDS: fentaNYL Drip 2500mCg/250mlNS 250 ML IV SCH (11:24)
[2021-03-08] MEDS: VASOPRESSIN 50 UNITS in D5W 5% 247.5 ML IV SCH (11:45)
[2021-03-08] MEDS: EPINEPHrine HCL 250 ML IV SCH (11:45)
[2021-03-08] MEDS: DOPamine 1600MCG/ML D5W 250 ML IV SCH (11:51)
[2021-03-08] MEDS ORDERED: ALBUMIN 25% 100 ML IV ONE (14:48)
[2021-03-08] MEDS: MIDAZOLAM DRIP 50 mg/50mL 50 ML IV SCH (15:30)
[2021-03-08] MEDS: Vital AF 1.2 Cal 1 liter bottle GT SCH (18:30)
[2021-03-08] MEDS ORDERED: VANCOMYCIN 500 MG in D5W 5% 100 ML IV ONE (20:00)
[2021-03-08] MEDS ORDERED: EPOETIN ALFA-EPBX 10,000 UNIT/1ML VIAL SC ONE (21:00)
[2021-03-08] MEDS: ATORVASTATIN 20 MG TAB PO SCH (21:05)
[2021-03-08] MEDS: PHENYLEPHRINE INJ 80 MG in SODIUM CHL 0.9% 242 ML IV SCH (23:00)
[2021-03-09] VITALS (102 sets, daily range): BP systolic 84–158; BP diastolic 31–82
[2021-03-09] MEDS: METOCLOPRAMIDE HCL 5MG/ml INJ 2ml VIAL IV SCH ×4 (00:17→17:56)
[2021-03-09] MEDS: ACCU-CHEK COMFORT CURVE STRIP VI SCH ×4 (00:18→17:59)
[2021-03-09] MEDS: PROPOFOL 100 ML IV SCH ×3 (00:19→22:03)
[2021-03-09] MEDS: fentaNYL Drip 2500mCg/250mlNS 250 ML IV SCH (02:16)
[2021-03-09] MEDS: MEROPENEM 500MG IVPB 50 ML IV SCH ×2 (05:15→16:58)
[2021-03-09 05:22] LABS: Basophils # (auto) 0.1 10 ^3/uL (0-0.2); Eosinophils # (auto) 0.1 10 ^3/uL (0-0.8)
[2021-03-09 05:23] LABS: Basophils % (auto) 1.2 % (0.0-2.0); Eosinophils % (auto) 1.4 % (0.0-7.0); Hematocrit 19.6 % (36.0-46.0); Lymphocytes % (auto) 15.4 % (10.0-50.0); Mean Corpuscular Hgb Conc. 32.9 g/dL (32.0-36.0); Mean Corpuscular Volume 91.2 fL (80.0-100.0); Monocytes # (auto) 0.6 10 ^3/uL (0-1.3); Monocytes % (auto) 9.6 % (0.0-12.0); Neutrophils # (auto) 4.8 10 ^3/uL (1.6-8.6); Neutrophils % (auto) 72.4 % (37.0-80.0); Nucleated Red Blood Cells % 0.1 %; Red Blood Cells 2.15 10^6/uL (4.0-5.20); Red Cell Distribution Width 17.2 % (11.8-14.3); White Blood Cell 6.6 10^3/uL (4.4-10.8)
[2021-03-09 05:25] LABS: Hemoglobin 6.5 g/dL (12.2-16.2)
[2021-03-09 05:41] LABS: Chloride 102 mmol/L (98-107); Potassium 3.5 mmol/L (3.5-5.1); Sodium 141 mmol/L (136-145)
[2021-03-09 05:47] LABS: Alanine Aminotransferase < 6 U/L (13-56); Albumin 2.3 g/dL (3.4-5.0); Anion Gap 8 (5-15); Aspartate Aminotransferase 12 U/L (15-37); Blood Urea Nitrogen 33 mg/dL (7-18); Calcium 7.7 mg/dL (8.5-10.1); Carbon Dioxide 31 mmol/L (21-32); GFR African American 27 mL/min; GFR Non-African American 22 mL/min; Glucose 76 mg/dL (74-106)
[2021-03-09 05:49] LABS: Alkaline Phosphatase 100 U/L (45-117); Bilirubin, Total 0.6 mg/dL (0.2-1.0); Total Protein 5.8 g/dL (6.4-8.2)
[2021-03-09] MEDS: InsuLIN REG 1unit/0.01ml Soln (100units/ml) SC SCH ×4 (06:00→17:59)
[2021-03-09] MEDS: DOPamine 1600MCG/ML D5W 250 ML IV SCH (06:09)
[2021-03-09] MEDS: Pro-Stat SF 30ml Vanilla GT SCH ×2 (10:14→22:03)
[2021-03-09] MEDS: LEVOTHYROXINE SODIUM 100 MCG/5 ML INJ IV SCH (10:14)
[2021-03-09] MEDS: DexAMETHasone SOD PHOS 4 MG/1ML SDV INJ IV SCH (10:14)
[2021-03-09] MEDS: EPINEPHrine HCL 250 ML IV SCH (11:45)
[2021-03-09] MEDS: VASOPRESSIN 50 UNITS in D5W 5% 247.5 ML IV SCH (11:45)
[2021-03-09] MEDS: NOREPINEPHRINE 8 MG/250ML KIT 250 ML IV SCH (12:53)
[2021-03-09] MEDS: MIDAZOLAM DRIP 50 mg/50mL 50 ML IV SCH (15:30)
[2021-03-09] MEDS: Vital AF 1.2 Cal 1 liter bottle GT SCH (16:59)
[2021-03-09] MEDS: PHENYLEPHRINE INJ 80 MG in SODIUM CHL 0.9% 242 ML IV SCH (21:20)
[2021-03-09] MEDS: ATORVASTATIN 20 MG TAB PO SCH (22:03)
[2021-03-10] VITALS (100 sets, daily range): BP systolic 91–144; BP diastolic 41–74
[2021-03-10] MEDS: DOPamine 1600MCG/ML D5W 250 ML IV SCH ×2 (00:27→18:45)
[2021-03-10] MEDS: MEROPENEM 500MG IVPB 50 ML IV SCH ×2 (05:00→17:00)
[2021-03-10] MEDS: InsuLIN REG 1unit/0.01ml Soln (100units/ml) SC SCH ×4 (06:00→18:05)
[2021-03-10] MEDS: METOCLOPRAMIDE HCL 5MG/ml INJ 2ml VIAL IV SCH ×5 (06:18→23:48)
[2021-03-10] MEDS: ACCU-CHEK COMFORT CURVE STRIP VI SCH ×4 (06:18→18:05)
[2021-03-10 09:00] LABS: Basophils # (auto) 0.1 10 ^3/uL (0-0.2); Eosinophils # (auto) 0.2 10 ^3/uL (0-0.8); Lymphocytes # (auto) 1.2 10 ^3/uL (0.4-5.4)
[2021-03-10 09:01] LABS: Basophils % (auto) 0.8 % (0.0-2.0); Eosinophils % (auto) 2.3 % (0.0-7.0); Hematocrit 24.9 % (36.0-46.0); Hemoglobin 7.8 g/dL (12.2-16.2); Lymphocytes % (auto) 15.8 % (10.0-50.0); Mean Corpuscular Hemoglobin 29.2 pg (28.0-32.0); Mean Corpuscular Hgb Conc. 31.5 g/dL (32.0-36.0); Mean Corpuscular Volume 92.7 fL (80.0-100.0); Monocytes % (auto) 12.7 % (0.0-12.0); Neutrophils # (auto) 5.3 10 ^3/uL (1.6-8.6); Neutrophils % (auto) 68.4 % (37.0-80.0); Nucleated Red Blood Cells % 0.3 %; Red Blood Cells 2.68 10^6/uL (4.0-5.20); Red Cell Distribution Width 17.7 % (11.8-14.3); White Blood Cell 7.8 10^3/uL (4.4-10.8)
[2021-03-10 09:13] LABS: BUN/Creatinine Ratio 14.2; Potassium 3.7 mmol/L (3.5-5.1)
[2021-03-10] MEDS: LEVOTHYROXINE SODIUM 100 MCG/5 ML INJ IV SCH (10:15)
[2021-03-10] MEDS: DexAMETHasone SOD PHOS 4 MG/1ML SDV INJ IV SCH (10:15)
[2021-03-10] MEDS: Pro-Stat SF 30ml Vanilla GT SCH ×2 (10:15→22:00)
[2021-03-10] MEDS: FAMOTIDINE (10MG/ML) 2ML VL IV SCH (10:15)
[2021-03-10] MEDS: EPINEPHrine HCL 250 ML IV SCH (11:45)
[2021-03-10] MEDS: VASOPRESSIN 50 UNITS in D5W 5% 247.5 ML IV SCH (11:45)
[2021-03-10] MEDS: NOREPINEPHRINE 8 MG/250ML KIT 250 ML IV SCH (12:14)
[2021-03-10] MEDS ORDERED: fentaNYL Drip 2500mCg/250mlNS 250 ML IV ONE (12:22)
[2021-03-10] MEDS: fentaNYL Drip 2500mCg/250mlNS 250 ML IV SCH (14:30)
[2021-03-10] MEDS: MIDAZOLAM DRIP 50 mg/50mL 50 ML IV SCH (15:30)
[2021-03-10] MEDS: PROPOFOL 100 ML IV SCH (15:30)
[2021-03-10] MEDS: ATORVASTATIN 20 MG TAB PO SCH (22:00)
[2021-03-10] MEDS: PHENYLEPHRINE INJ 80 MG in SODIUM CHL 0.9% 242 ML IV SCH (23:00)
[2021-03-11] VITALS (95 sets, daily range): BP systolic 61–139; BP diastolic 43–76
[2021-03-11] MEDS: MEROPENEM 500MG IVPB 50 ML IV SCH ×2 (05:00→16:25)
[2021-03-11] MEDS: METOCLOPRAMIDE HCL 5MG/ml INJ 2ml VIAL IV SCH ×4 (06:00→23:25)
[2021-03-11] MEDS: ACCU-CHEK COMFORT CURVE STRIP VI SCH ×5 (06:00→23:26)
[2021-03-11] MEDS: InsuLIN REG 1unit/0.01ml Soln (100units/ml) SC SCH ×5 (06:00→23:26)
[2021-03-11 06:03] LABS: Basophils # (auto) 0.1 10 ^3/uL (0-0.2); Monocytes # (auto) 0.9 10 ^3/uL (0-1.3); Neutrophils # (auto) 5.4 10 ^3/uL (1.6-8.6); White Blood Cell 7.7 10^3/uL (4.4-10.8)
[2021-03-11 06:04] LABS: Basophils % (auto) 1.5 % (0.0-2.0); Calcium 8.4 mg/dL (8.5-10.1); Eosinophils # (auto) 0.2 10 ^3/uL (0-0.8); Eosinophils % (auto) 2.4 % (0.0-7.0); Hematocrit 23.9 % (36.0-46.0); Hemoglobin 7.8 g/dL (12.2-16.2); Lymphocytes # (auto) 1.1 10 ^3/uL (0.4-5.4); Lymphocytes % (auto) 14.1 % (10.0-50.0); Mean Corpuscular Hemoglobin 29.9 pg (28.0-32.0); Mean Corpuscular Hgb Conc. 32.5 g/dL (32.0-36.0); Mean Corpuscular Volume 91.9 fL (80.0-100.0); Monocytes % (auto) 11.9 % (0.0-12.0); Neutrophils % (auto) 70.1 % (37.0-80.0); Nucleated Red Blood Cells % 0.2 %; Potassium 3.8 mmol/L (3.5-5.1); Red Cell Distribution Width 17.1 % (11.8-14.3)
[2021-03-11 06:06] LABS: BUN/Creatinine Ratio 16.1
[2021-03-11] MEDS ORDERED: SODIUM CHL 0.9% 1000 ML BAG XX ONE (07:00)
[2021-03-11] MEDS: LEVOTHYROXINE SODIUM 100 MCG/5 ML INJ IV SCH (09:39)
[2021-03-11] MEDS: DexAMETHasone SOD PHOS 4 MG/1ML SDV INJ IV SCH (09:39)
[2021-03-11] MEDS: Pro-Stat SF 30ml Vanilla GT SCH ×2 (09:40→21:03)
[2021-03-11] MEDS: EPINEPHrine HCL 250 ML IV SCH (11:45)
[2021-03-11] MEDS: VASOPRESSIN 50 UNITS in D5W 5% 247.5 ML IV SCH (11:45)
[2021-03-11] MEDS: NOREPINEPHRINE 8 MG/250ML KIT 250 ML IV SCH (12:00)
[2021-03-11] MEDS: DOPamine 1600MCG/ML D5W 250 ML IV SCH (13:03)
[2021-03-11] MEDS: PROPOFOL 100 ML IV SCH (15:03)
[2021-03-11] MEDS: fentaNYL Drip 2500mCg/250mlNS 250 ML IV SCH ×2 (16:13→21:06)
[2021-03-11] MEDS: MIDAZOLAM DRIP 50 mg/50mL 50 ML IV SCH (16:14)
[2021-03-11] MEDS ORDERED: ALBUMIN 25% 100 ML IV ONE (18:30)
[2021-03-11] MEDS ORDERED: EPOETIN ALFA-EPBX 10,000 UNIT/1ML VIAL SC ONE (21:00)
[2021-03-11] MEDS ORDERED: VANCOMYCIN 500 MG in D5W 5% 100 ML IV ONE (21:00)
[2021-03-11] MEDS: ATORVASTATIN 20 MG TAB PO SCH (21:03)
[2021-03-11] MEDS: PHENYLEPHRINE INJ 80 MG in SODIUM CHL 0.9% 242 ML IV SCH (23:00)
[2021-03-12] VITALS (101 sets, daily range): BP systolic 90–150; BP diastolic 37–77
[2021-03-12] MEDS: PROPOFOL 100 ML IV SCH ×3 (00:24→20:26)
[2021-03-12] MEDS: MEROPENEM 500MG IVPB 50 ML IV SCH ×2 (05:03→16:32)
[2021-03-12] MEDS: InsuLIN REG 1unit/0.01ml Soln (100units/ml) SC SCH ×4 (05:19→23:18)
[2021-03-12] MEDS: ACCU-CHEK COMFORT CURVE STRIP VI SCH ×4 (05:19→23:18)
[2021-03-12] MEDS: METOCLOPRAMIDE HCL 5MG/ml INJ 2ml VIAL IV SCH ×4 (05:19→23:18)
[2021-03-12] MEDS: DOPamine 1600MCG/ML D5W 250 ML IV SCH ×2 (07:21→20:26)
[2021-03-12] MEDS: LEVOTHYROXINE SODIUM 100 MCG/5 ML INJ IV SCH (09:24)
[2021-03-12] MEDS: DexAMETHasone SOD PHOS 4 MG/1ML SDV INJ IV SCH (09:24)
[2021-03-12] MEDS: Pro-Stat SF 30ml Vanilla GT SCH ×2 (09:25→20:25)
[2021-03-12] MEDS: FAMOTIDINE (10MG/ML) 2ML VL IV SCH (09:25)
[2021-03-12 09:59] LABS: Basophils # (auto) 0 10 ^3/uL (0-0.2); Basophils % (auto) 0.4 % (0.0-2.0); Eosinophils # (auto) 0.3 10 ^3/uL (0-0.8); Eosinophils % (auto) 3.7 % (0.0-7.0); Hematocrit 22.9 % (36.0-46.0); Hemoglobin 7.3 g/dL (12.2-16.2); Lymphocytes # (auto) 0.9 10 ^3/uL (0.4-5.4); Lymphocytes % (auto) 11.4 % (10.0-50.0); Mean Corpuscular Hemoglobin 29.2 pg (28.0-32.0); Mean Corpuscular Hgb Conc. 31.7 g/dL (32.0-36.0); Mean Corpuscular Volume 91.9 fL (80.0-100.0); Monocytes # (auto) 0.8 10 ^3/uL (0-1.3); Monocytes % (auto) 9.6 % (0.0-12.0); Neutrophils % (auto) 74.9 % (37.0-80.0); Nucleated Red Blood Cells % 0.6 %
[2021-03-12] MEDS: VASOPRESSIN 50 UNITS in D5W 5% 247.5 ML IV SCH (11:45)
[2021-03-12] MEDS: EPINEPHrine HCL 250 ML IV SCH (11:45)
[2021-03-12] MEDS: NOREPINEPHRINE 8 MG/250ML KIT 250 ML IV SCH (11:52)
[2021-03-12 13:11] LABS: BUN/Creatinine Ratio 15.4; Calcium 7.7 mg/dL (8.5-10.1); Potassium 3.6 mmol/L (3.5-5.1)
[2021-03-12] MEDS: fentaNYL Drip 2500mCg/250mlNS 250 ML IV SCH (13:37)
[2021-03-12] MEDS: MIDAZOLAM DRIP 50 mg/50mL 50 ML IV SCH (15:30)
[2021-03-12] MEDS: PHENYLEPHRINE INJ 80 MG in SODIUM CHL 0.9% 242 ML IV SCH (20:25)
[2021-03-12] MEDS: ATORVASTATIN 20 MG TAB PO SCH (20:25)
[2021-03-13] VITALS (97 sets, daily range): BP systolic 88–174; BP diastolic 41–89
[2021-03-13] MEDS: METOCLOPRAMIDE HCL 5MG/ml INJ 2ml VIAL IV SCH ×3 (05:27→17:31)
[2021-03-13] MEDS: InsuLIN REG 1unit/0.01ml Soln (100units/ml) SC SCH ×3 (05:27→17:25)
[2021-03-13] MEDS: MEROPENEM 500MG IVPB 50 ML IV SCH ×2 (05:27→17:32)
[2021-03-13] MEDS: ACCU-CHEK COMFORT CURVE STRIP VI SCH ×3 (05:28→17:26)
[2021-03-13] MEDS: PROPOFOL 100 ML IV SCH ×2 (05:28→19:15)
[2021-03-13 05:32] LABS: Basophils # (auto) 0.1 10 ^3/uL (0-0.2); Eosinophils # (auto) 0.4 10 ^3/uL (0-0.8); Hematocrit 23.6 % (36.0-46.0); Hemoglobin 7.7 g/dL (12.2-16.2); Mean Corpuscular Hemoglobin 29.8 pg (28.0-32.0); Mean Corpuscular Hgb Conc. 32.6 g/dL (32.0-36.0); Monocytes % (auto) 9.1 % (0.0-12.0); Nucleated Red Blood Cells % 0.4 %
[2021-03-13 05:34] LABS: Basophils % (auto) 1.3 % (0.0-2.0); Eosinophils % (auto) 3.9 % (0.0-7.0); Lymphocytes % (auto) 10.3 % (10.0-50.0); Mean Corpuscular Volume 91.5 fL (80.0-100.0); Monocytes # (auto) 0.9 10 ^3/uL (0-1.3); Neutrophils # (auto) 7.1 10 ^3/uL (1.6-8.6); Neutrophils % (auto) 75.4 % (37.0-80.0); Red Blood Cells 2.58 10^6/uL (4.0-5.20); White Blood Cell 9.4 10^3/uL (4.4-10.8)
[2021-03-13 05:39] LABS: Chloride 105 mmol/L (98-107); Potassium 3.6 mmol/L (3.5-5.1); Sodium 141 mmol/L (136-145)
[2021-03-13 05:45] LABS: Alanine Aminotransferase < 6 U/L (13-56); Albumin 2.1 g/dL (3.4-5.0); Alkaline Phosphatase 102 U/L (45-117); Anion Gap 6 (5-15); Aspartate Aminotransferase 12 U/L (15-37); BUN/Creatinine Ratio 17.2; Bilirubin, Total 0.5 mg/dL (0.2-1.0); Blood Urea Nitrogen 47 mg/dL (7-18); Carbon Dioxide 30 mmol/L (21-32); GFR African American 23 mL/min; GFR Non-African American 19 mL/min; Glucose 88 mg/dL (74-106); Total Protein 5.8 g/dL (6.4-8.2)
[2021-03-13] MEDS: fentaNYL Drip 2500mCg/250mlNS 250 ML IV SCH ×2 (06:33→20:06)
[2021-03-13] MEDS ORDERED: SODIUM CHL 0.9% 1000 ML BAG XX ONE (07:00)
[2021-03-13] MEDS: DexAMETHasone SOD PHOS 4 MG/1ML SDV INJ IV SCH (09:38)
[2021-03-13] MEDS: LEVOTHYROXINE SODIUM 100 MCG/5 ML INJ IV SCH (09:38)
[2021-03-13] MEDS: Pro-Stat SF 30ml Vanilla GT SCH ×2 (09:39→21:14)
[2021-03-13] MEDS: VASOPRESSIN 50 UNITS in D5W 5% 247.5 ML IV SCH (11:45)
[2021-03-13] MEDS: EPINEPHrine HCL 250 ML IV SCH (11:45)
[2021-03-13] MEDS: NOREPINEPHRINE 8 MG/250ML KIT 250 ML IV SCH (12:00)
[2021-03-13] MEDS: DEXTROSE (50%) 50ML SYRG IV PRN (13:47)
[2021-03-13] MEDS: MIDAZOLAM DRIP 50 mg/50mL 50 ML IV SCH (15:30)
[2021-03-13] MEDS ORDERED: VANCOMYCIN 500 MG in D5W 5% 100 ML IV ONE (16:00)
[2021-03-13] MEDS: DOPamine 1600MCG/ML D5W 250 ML IV SCH (19:57)
[2021-03-13] MEDS ORDERED: EPOETIN ALFA-EPBX 10,000 UNIT/1ML VIAL SC ONE (21:00)
[2021-03-13] MEDS: ATORVASTATIN 20 MG TAB PO SCH (21:13)
[2021-03-13] MEDS: PHENYLEPHRINE INJ 80 MG in SODIUM CHL 0.9% 242 ML IV SCH (22:35)
[2021-03-14] VITALS (101 sets, daily range): BP systolic 81–155; BP diastolic 39–84
[2021-03-14] MEDS: ACCU-CHEK COMFORT CURVE STRIP VI SCH ×4 (00:49→17:45)
[2021-03-14] MEDS: PROPOFOL 100 ML IV SCH ×3 (02:42→21:44)
[2021-03-14] MEDS: MEROPENEM 500MG IVPB 50 ML IV SCH ×2 (04:49→16:27)
[2021-03-14] MEDS: InsuLIN REG 1unit/0.01ml Soln (100units/ml) SC SCH ×4 (06:00→17:45)
[2021-03-14] MEDS: METOCLOPRAMIDE HCL 5MG/ml INJ 2ml VIAL IV SCH ×4 (06:18→17:45)
[2021-03-14 07:12] LABS: Hemoglobin 7.7 g/dL (12.2-16.2); Lymphocytes # (auto) 0.8 10 ^3/uL (0.4-5.4); Monocytes # (auto) 0.7 10 ^3/uL (0-1.3); Neutrophils # (auto) 6.4 10 ^3/uL (1.6-8.6)
[2021-03-14 07:14] LABS: Basophils # (auto) 0.1 10 ^3/uL (0-0.2); Basophils % (auto) 0.7 % (0.0-2.0); Eosinophils # (auto) 0.4 10 ^3/uL (0-0.8); Eosinophils % (auto) 4.3 % (0.0-7.0); Hematocrit 24.2 % (36.0-46.0); Lymphocytes % (auto) 9.8 % (10.0-50.0); Mean Corpuscular Hemoglobin 29.4 pg (28.0-32.0); Monocytes % (auto) 8.5 % (0.0-12.0); Neutrophils % (auto) 76.7 % (37.0-80.0); Nucleated Red Blood Cells % 0.3 %; Red Blood Cells 2.63 10^6/uL (4.0-5.20); Red Cell Distribution Width 17.4 % (11.8-14.3); White Blood Cell 8.4 10^3/uL (4.4-10.8)
[2021-03-14 07:45] LABS: BUN/Creatinine Ratio 17.5; Calcium 7.9 mg/dL (8.5-10.1); Potassium 3.3 mmol/L (3.5-5.1)
[2021-03-14] MEDS: FAMOTIDINE (10MG/ML) 2ML VL IV SCH (09:33)
[2021-03-14] MEDS: DexAMETHasone SOD PHOS 4 MG/1ML SDV INJ IV SCH (09:33)
[2021-03-14] MEDS: LEVOTHYROXINE SODIUM 100 MCG/5 ML INJ IV SCH (09:33)
[2021-03-14] MEDS: Pro-Stat SF 30ml Vanilla GT SCH ×2 (09:33→21:42)
[2021-03-14] MEDS: fentaNYL Drip 2500mCg/250mlNS 250 ML IV SCH (10:57)
[2021-03-14] MEDS: EPINEPHrine HCL 250 ML IV SCH (11:45)
[2021-03-14] MEDS: VASOPRESSIN 50 UNITS in D5W 5% 247.5 ML IV SCH (11:45)
[2021-03-14] MEDS: NOREPINEPHRINE 8 MG/250ML KIT 250 ML IV SCH (12:00)
[2021-03-14] MEDS: DOPamine 1600MCG/ML D5W 250 ML IV SCH (14:15)
[2021-03-14] MEDS: MIDAZOLAM DRIP 50 mg/50mL 50 ML IV SCH (15:30)
[2021-03-14] MEDS: ATORVASTATIN 20 MG TAB PO SCH (21:43)
[2021-03-14] MEDS: PHENYLEPHRINE INJ 80 MG in SODIUM CHL 0.9% 242 ML IV SCH (23:00)
[2021-03-15] VITALS (102 sets, daily range): BP systolic 92–145; BP diastolic 38–77
[2021-03-15] MEDS: ACCU-CHEK COMFORT CURVE STRIP VI SCH ×4 (00:15→17:57)
[2021-03-15] MEDS: fentaNYL Drip 2500mCg/250mlNS 250 ML IV SCH ×2 (00:17→14:40)
[2021-03-15] MEDS: METOCLOPRAMIDE HCL 5MG/ml INJ 2ml VIAL IV SCH ×4 (00:19→17:56)
[2021-03-15] MEDS: MEROPENEM 1GM IVPB 100 ML IV SCH ×2 (04:13→16:38)
[2021-03-15] MEDS: PROPOFOL 100 ML IV SCH ×3 (04:25→22:46)
[2021-03-15] MEDS: InsuLIN REG 1unit/0.01ml Soln (100units/ml) SC SCH ×4 (06:00→17:56)
[2021-03-15 06:30] LABS: Basophils # (auto) 0.1 10 ^3/uL (0-0.2); Eosinophils # (auto) 0.4 10 ^3/uL (0-0.8); Nucleated Red Blood Cells % 0.1 %
[2021-03-15 06:35] LABS: Basophils % (auto) 1.6 % (0.0-2.0); Eosinophils % (auto) 5.9 % (0.0-7.0); Hematocrit 21.9 % (36.0-46.0); Lymphocytes # (auto) 0.9 10 ^3/uL (0.4-5.4); Lymphocytes % (auto) 11.3 % (10.0-50.0); Mean Corpuscular Hemoglobin 28.9 pg (28.0-32.0); Mean Corpuscular Hgb Conc. 31.4 g/dL (32.0-36.0); Mean Corpuscular Volume 91.9 fL (80.0-100.0); Monocytes # (auto) 0.6 10 ^3/uL (0-1.3); Monocytes % (auto) 8.3 % (0.0-12.0); Neutrophils # (auto) 5.5 10 ^3/uL (1.6-8.6); Neutrophils % (auto) 72.9 % (37.0-80.0); Red Blood Cells 2.38 10^6/uL (4.0-5.20); Red Cell Distribution Width 17.8 % (11.8-14.3); White Blood Cell 7.6 10^3/uL (4.4-10.8)
[2021-03-15 06:43] LABS: BUN/Creatinine Ratio 18.2; Potassium 3.7 mmol/L (3.5-5.1)
[2021-03-15 06:49] LABS: Hemoglobin 6.9 g/dL (12.2-16.2)
[2021-03-15] MEDS: DOPamine 1600MCG/ML D5W 250 ML IV SCH (08:33)
[2021-03-15] MEDS: Pro-Stat SF 30ml Vanilla GT SCH ×2 (09:24→21:07)
[2021-03-15] MEDS: LEVOTHYROXINE SODIUM 100 MCG/5 ML INJ IV SCH (09:25)
[2021-03-15] MEDS: VASOPRESSIN 50 UNITS in D5W 5% 247.5 ML IV SCH (11:45)
[2021-03-15] MEDS: EPINEPHrine HCL 250 ML IV SCH (11:45)
[2021-03-15] MEDS: NOREPINEPHRINE 8 MG/250ML KIT 250 ML IV SCH (12:00)
[2021-03-15] MEDS: MIDAZOLAM DRIP 50 mg/50mL 50 ML IV SCH (15:30)
[2021-03-15] MEDS: ATORVASTATIN 20 MG TAB PO SCH (21:07)
[2021-03-15] MEDS: PHENYLEPHRINE INJ 80 MG in SODIUM CHL 0.9% 242 ML IV SCH (23:00)
[2021-03-16] VITALS (102 sets, daily range): BP systolic 89–160; BP diastolic 38–85
[2021-03-16] MEDS: ACCU-CHEK COMFORT CURVE STRIP VI SCH ×5 (00:01→23:48)
[2021-03-16] MEDS: DOPamine 1600MCG/ML D5W 250 ML IV SCH ×2 (02:51→21:09)
[2021-03-16] MEDS: MEROPENEM 1GM IVPB 100 ML IV SCH ×2 (04:14→16:57)
[2021-03-16 05:52] LABS: Basophils # (auto) 0.1 10 ^3/uL (0-0.2); Basophils % (auto) 1.2 % (0.0-2.0); Eosinophils # (auto) 0.5 10 ^3/uL (0-0.8); Eosinophils % (auto) 6.3 % (0.0-7.0); Hematocrit 27.3 % (36.0-46.0); Lymphocytes # (auto) 0.9 10 ^3/uL (0.4-5.4); Lymphocytes % (auto) 10.6 % (10.0-50.0); Mean Corpuscular Hemoglobin 30.3 pg (28.0-32.0); Mean Corpuscular Hgb Conc. 32.9 g/dL (32.0-36.0); Mean Corpuscular Volume 92.2 fL (80.0-100.0); Monocytes # (auto) 0.6 10 ^3/uL (0-1.3); Monocytes % (auto) 7.2 % (0.0-12.0); Neutrophils # (auto) 6.2 10 ^3/uL (1.6-8.6); Neutrophils % (auto) 74.7 % (37.0-80.0); Red Blood Cells 2.96 10^6/uL (4.0-5.20); Red Cell Distribution Width 17.3 % (11.8-14.3); White Blood Cell 8.4 10^3/uL (4.4-10.8)
[2021-03-16] MEDS: METOCLOPRAMIDE HCL 5MG/ml INJ 2ml VIAL IV SCH ×5 (06:00→23:48)
[2021-03-16] MEDS: InsuLIN REG 1unit/0.01ml Soln (100units/ml) SC SCH ×5 (06:00→23:48)
[2021-03-16 06:04] LABS: Potassium 3.7 mmol/L (3.5-5.1)
[2021-03-16] MEDS: PROPOFOL 100 ML IV SCH ×2 (06:12→14:56)
[2021-03-16] MEDS: fentaNYL Drip 2500mCg/250mlNS 250 ML IV SCH (06:22)
[2021-03-16 06:32] LABS: BUN/Creatinine Ratio 20.4; Calcium 8.1 mg/dL (8.5-10.1)
[2021-03-16 07:54] LABS: INR 1.1 (0.9-1.15); Partial Thromboplastin Time 33.6 sec (23.6-33.0)
[2021-03-16] MEDS: LEVOTHYROXINE SODIUM 100 MCG/5 ML INJ IV SCH (09:38)
[2021-03-16] MEDS: FAMOTIDINE (10MG/ML) 2ML VL IV SCH (09:40)
[2021-03-16] MEDS: Pro-Stat SF 30ml Vanilla GT SCH ×2 (09:41→22:00)
[2021-03-16] MEDS ORDERED: ALBUMIN 25% 100 ML IV PRN (09:45)
[2021-03-16] MEDS: EPINEPHrine HCL 250 ML IV SCH (11:45)
[2021-03-16] MEDS: VASOPRESSIN 50 UNITS in D5W 5% 247.5 ML IV SCH (11:45)
[2021-03-16] MEDS: NOREPINEPHRINE 8 MG/250ML KIT 250 ML IV SCH (12:00)
[2021-03-16] MEDS: MIDAZOLAM DRIP 50 mg/50mL 50 ML IV SCH (15:30)
[2021-03-16] MEDS: ATORVASTATIN 20 MG TAB PO SCH (22:00)
[2021-03-16] MEDS: PHENYLEPHRINE INJ 80 MG in SODIUM CHL 0.9% 242 ML IV SCH (23:00)
[2021-03-17] VITALS (101 sets, daily range): BP systolic 82–139; BP diastolic 41–72
[2021-03-17] MEDS: Vital AF 1.2 Cal 1 liter bottle GT SCH (01:56)
[2021-03-17] MEDS: MEROPENEM 1GM IVPB 100 ML IV SCH ×2 (04:28→17:41)
[2021-03-17] MEDS: ACCU-CHEK COMFORT CURVE STRIP VI SCH ×3 (06:00→17:42)
[2021-03-17] MEDS: InsuLIN REG 1unit/0.01ml Soln (100units/ml) SC SCH ×3 (06:00→18:00)
[2021-03-17] MEDS: METOCLOPRAMIDE HCL 5MG/ml INJ 2ml VIAL IV SCH ×2 (06:00→11:58)
[2021-03-17 06:04] LABS: Potassium 3.9 mmol/L (3.5-5.1)
[2021-03-17 06:07] LABS: INR 1.14 (0.9-1.15); Partial Thromboplastin Time 37.1 sec (23.6-33.0)
[2021-03-17 06:09] LABS: BUN/Creatinine Ratio 20.2
[2021-03-17 06:38] LABS: Hemoglobin 7.9 g/dL (12.2-16.2); Mean Corpuscular Hemoglobin 29.1 pg (28.0-32.0); Mean Corpuscular Hgb Conc. 31.3 g/dL (32.0-36.0)
[2021-03-17 06:39] LABS: Hematocrit 25.2 % (36.0-46.0); Red Blood Cells 2.71 10^6/uL (4.0-5.20); Red Cell Distribution Width 18.1 % (11.8-14.3); White Blood Cell 8.9 10^3/uL (4.4-10.8)
[2021-03-17 06:55] LABS: Basophils % (manual) 0 (0.0-2.0); Blast Cells 0; Metamyelocytes % 0; Myelocytes % 0; Promyelocytes % 0; Reactive Lymphocytes 0
[2021-03-17] MEDS ORDERED: SODIUM CHL 0.9% 1000 ML BAG XX ONE (07:00)
[2021-03-17 08:55] LABS: Band Neutrophils % (manual) 2; Eosinophils % (manual) 7 (0-7); Lymphocytes % (manual) 8 (10.0-50.0); Monocytes % (manual) 10 (0-12)
[2021-03-17] MEDS: LEVOTHYROXINE SODIUM 100 MCG/5 ML INJ IV SCH (09:49)
[2021-03-17] MEDS: Pro-Stat SF 30ml Vanilla GT SCH ×2 (09:50→21:03)
[2021-03-17] MEDS ORDERED: Nepro With Carb Steady 1 Liter Bottle GT SCH (11:00)
[2021-03-17] MEDS ORDERED: ALBUMIN 25% 200 ML IV ONE (11:26)
[2021-03-17] MEDS ORDERED: ALBUMIN 25% 100 ML IV ONE ×2 (11:30→12:30)
[2021-03-17] MEDS: ASPirin 81 mg TAB PO SCH (11:33)
[2021-03-17] MEDS: EPINEPHrine HCL 250 ML IV SCH (11:45)
[2021-03-17] MEDS: VASOPRESSIN 50 UNITS in D5W 5% 247.5 ML IV SCH (11:45)
[2021-03-17] MEDS: NOREPINEPHRINE 8 MG/250ML KIT 250 ML IV SCH (11:58)
[2021-03-17] MEDS: DEXTROSE (50%) 50ML SYRG IV PRN (12:01)
[2021-03-17] MEDS: PROPOFOL 100 ML IV SCH ×2 (13:35)
[2021-03-17] MEDS: fentaNYL Drip 2500mCg/250mlNS 250 ML IV SCH ×2 (13:41)
[2021-03-17] MEDS ORDERED: METOCLOPRAMIDE HCL 5MG/ml INJ 2ml VIAL IV PRN (15:00)
[2021-03-17] MEDS: DOPamine 1600MCG/ML D5W 250 ML IV SCH (15:00)
[2021-03-17] MEDS: MIDAZOLAM DRIP 50 mg/50mL 50 ML IV SCH (15:30)
[2021-03-17] MEDS ORDERED: VANCOMYCIN 500 MG in D5W 5% 100 ML IV ONE (16:00)
[2021-03-17] MEDS ORDERED: EPOETIN ALFA-EPBX 10,000 UNIT/1ML VIAL SC ONE (21:00)
[2021-03-17] MEDS: ATORVASTATIN 20 MG TAB PO SCH (21:03)
[2021-03-17] MEDS: PHENYLEPHRINE INJ 80 MG in SODIUM CHL 0.9% 242 ML IV SCH (23:00)
[2021-03-18] VITALS (96 sets, daily range): BP systolic 84–140; BP diastolic 40–110
[2021-03-18] MEDS: ACCU-CHEK COMFORT CURVE STRIP VI SCH ×4 (00:46→19:00)
[2021-03-18] MEDS: PROPOFOL 100 ML IV SCH ×2 (01:58→06:47)
[2021-03-18] MEDS: MEROPENEM 1GM IVPB 100 ML IV SCH ×2 (04:55→16:28)
[2021-03-18] MEDS: InsuLIN REG 1unit/0.01ml Soln (100units/ml) SC SCH ×4 (06:00→18:00)
[2021-03-18 06:20] LABS: Basophils # (auto) 0.1 10 ^3/uL (0-0.2); Eosinophils # (auto) 0.5 10 ^3/uL (0-0.8); Lymphocytes # (auto) 0.8 10 ^3/uL (0.4-5.4); Monocytes # (auto) 0.8 10 ^3/uL (0-1.3); Nucleated Red Blood Cells % 0.1 %
[2021-03-18 06:23] LABS: Basophils % (auto) 0.9 % (0.0-2.0); Eosinophils % (auto) 5.5 % (0.0-7.0); Hematocrit 23.4 % (36.0-46.0); Hemoglobin 7.7 g/dL (12.2-16.2); Lymphocytes % (auto) 8.3 % (10.0-50.0); Mean Corpuscular Hemoglobin 30.4 pg (28.0-32.0); Mean Corpuscular Volume 92.1 fL (80.0-100.0); Monocytes % (auto) 8.7 % (0.0-12.0); Neutrophils % (auto) 76.6 % (37.0-80.0); Red Blood Cells 2.54 10^6/uL (4.0-5.20); Red Cell Distribution Width 17.6 % (11.8-14.3); White Blood Cell 9.2 10^3/uL (4.4-10.8)
[2021-03-18 06:31] LABS: INR 1.16 (0.9-1.15); Partial Thromboplastin Time 41.6 sec (23.6-33.0); Potassium 3.8 mmol/L (3.5-5.1)
[2021-03-18] MEDS: fentaNYL Drip 2500mCg/250mlNS 250 ML IV SCH (06:46)
[2021-03-18] MEDS: LEVOTHYROXINE SODIUM 100 MCG/5 ML INJ IV SCH (09:30)
[2021-03-18] MEDS: ASPirin 81 mg TAB PO SCH (09:32)
[2021-03-18] MEDS: FAMOTIDINE (10MG/ML) 2ML VL IV SCH (09:32)
[2021-03-18] MEDS: Pro-Stat SF 30ml Vanilla GT SCH ×2 (09:32→21:51)
[2021-03-18] MEDS ORDERED: LIDOCAINE W/ EPINEPHRINE 1% 20ML VIAL ONE (11:46)
[2021-03-18] MEDS: NOREPINEPHRINE 8 MG/250ML KIT 250 ML IV SCH (12:00)
[2021-03-18] MEDS ORDERED: HYDROmorphone HCL 2 MG/ML VL ONE ×2 (12:50→13:15)
[2021-03-18] MEDS ORDERED: fentaNYL CITRATE 100 MCG/2 ML VL ONE (12:51)
[2021-03-18] MEDS ORDERED: MIDAZOLAM HCL 2MG/2ML 2ml VIAL (1mg/ml) ONE ×2 (12:51→13:08)
[2021-03-18] MEDS ORDERED: PROPOFOL 10 MG/ML 20 ML IV ONE (13:07)
[2021-03-18] MEDS ORDERED: ROCURONIUM 10MG/ML 10ML VIAL IV ONE (13:36)
[2021-03-18] MEDS: ATORVASTATIN 20 MG TAB PO SCH (21:48)
[2021-03-18] MEDS: PANTOPRAZOLE 40 MG/10 ML VIAL INJ IV SCH (21:52)
[2021-03-19] VITALS (101 sets, daily range): BP systolic 100–175; BP diastolic 50–94
[2021-03-19] MEDS: ACCU-CHEK COMFORT CURVE STRIP VI SCH ×4 (00:21→17:30)
[2021-03-19] MEDS: MEROPENEM 1GM IVPB 100 ML IV SCH ×2 (04:16→16:52)
[2021-03-19 05:18] LABS: Basophils # (auto) 0 10 ^3/uL (0-0.2); Basophils % (auto) 0.2 % (0.0-2.0); Eosinophils # (auto) 0 10 ^3/uL (0-0.8); Hematocrit 24.3 % (36.0-46.0); Hemoglobin 7.9 g/dL (12.2-16.2); Monocytes # (auto) 0.5 10 ^3/uL (0-1.3); Neutrophils % (auto) 85.1 % (37.0-80.0)
[2021-03-19 05:21] LABS: Eosinophils % (auto) 0.1 % (0.0-7.0); Lymphocytes # (auto) 1.2 10 ^3/uL (0.4-5.4); Lymphocytes % (auto) 10.4 % (10.0-50.0); Mean Corpuscular Hemoglobin 29.8 pg (28.0-32.0); Mean Corpuscular Hgb Conc. 32.5 g/dL (32.0-36.0); Mean Corpuscular Volume 91.7 fL (80.0-100.0); Monocytes % (auto) 4.2 % (0.0-12.0); Neutrophils # (auto) 9.7 10 ^3/uL (1.6-8.6); Nucleated Red Blood Cells % 0.1 %; Red Blood Cells 2.65 10^6/uL (4.0-5.20); Red Cell Distribution Width 17.2 % (11.8-14.3); White Blood Cell 11.4 10^3/uL (4.4-10.8)
[2021-03-19 05:39] LABS: Calcium 8.2 mg/dL (8.5-10.1); Potassium 4.3 mmol/L (3.5-5.1)
[2021-03-19 05:42] LABS: BUN/Creatinine Ratio 18.1
[2021-03-19] MEDS: InsuLIN REG 1unit/0.01ml Soln (100units/ml) SC SCH ×4 (06:00→18:00)
[2021-03-19] MEDS: fentaNYL Drip 2500mCg/250mlNS 250 ML IV SCH ×2 (06:54→22:50)
[2021-03-19] MEDS: PANTOPRAZOLE 40 MG/10 ML VIAL INJ IV SCH ×2 (09:08→22:48)
[2021-03-19] MEDS: ASPirin 81 mg TAB PO SCH (09:08)
[2021-03-19] MEDS: Pro-Stat SF 30ml Vanilla GT SCH ×2 (09:08→22:47)
[2021-03-19] MEDS: LEVOTHYROXINE SODIUM 100 MCG/5 ML INJ IV SCH (09:08)
[2021-03-19] MEDS: NOREPINEPHRINE 8 MG/250ML KIT 250 ML IV SCH (12:00)
[2021-03-19] MEDS: PROPOFOL 100 ML IV SCH (20:30)
[2021-03-19] MEDS: ATORVASTATIN 20 MG TAB PO SCH (22:48)
[2021-03-20] VITALS (104 sets, daily range): BP systolic 109–179; BP diastolic 44–100
[2021-03-20] MEDS: PROPOFOL 100 ML IV SCH (04:24)
[2021-03-20] MEDS: MEROPENEM 1GM IVPB 100 ML IV SCH ×2 (05:15→17:19)
[2021-03-20] MEDS: InsuLIN REG 1unit/0.01ml Soln (100units/ml) SC SCH ×5 (06:00→23:55)
[2021-03-20] MEDS: ACCU-CHEK COMFORT CURVE STRIP VI SCH ×5 (06:26→23:55)
[2021-03-20 08:03] LABS: Eosinophils # (auto) 0.2 10 ^3/uL (0-0.8); Lymphocytes # (auto) 0.5 10 ^3/uL (0.4-5.4); Red Blood Cells 1.58 10^6/uL (4.0-5.20)
[2021-03-20 08:05] LABS: Basophils # (auto) 0 10 ^3/uL (0-0.2); Basophils % (auto) 0.9 % (0.0-2.0); Eosinophils % (auto) 3.8 % (0.0-7.0); Hematocrit 14.6 % (36.0-46.0); Lymphocytes % (auto) 10.4 % (10.0-50.0); Mean Corpuscular Hemoglobin 29.4 pg (28.0-32.0); Mean Corpuscular Hgb Conc. 31.9 g/dL (32.0-36.0); Mean Corpuscular Volume 92.1 fL (80.0-100.0); Monocytes # (auto) 0.5 10 ^3/uL (0-1.3); Monocytes % (auto) 12.6 % (0.0-12.0); Neutrophils # (auto) 3.2 10 ^3/uL (1.6-8.6); Neutrophils % (auto) 72.3 % (37.0-80.0); Nucleated Red Blood Cells % 0.4 %; Red Cell Distribution Width 17.2 % (11.8-14.3); White Blood Cell 4.4 10^3/uL (4.4-10.8)
[2021-03-20 08:07] LABS: Hemoglobin 4.6 g/dL (12.2-16.2)
[2021-03-20 09:18] LABS: Basophils # (auto) 0.1 10 ^3/uL (0-0.2); Basophils % (auto) 1.2 % (0.0-2.0); Eosinophils # (auto) 0.2 10 ^3/uL (0-0.8); Eosinophils % (auto) 4.5 % (0.0-7.0); Hematocrit 13.7 % (36.0-46.0); Lymphocytes # (auto) 0.4 10 ^3/uL (0.4-5.4); Lymphocytes % (auto) 9.3 % (10.0-50.0); Mean Corpuscular Hemoglobin 29.5 pg (28.0-32.0); Mean Corpuscular Hgb Conc. 32.4 g/dL (32.0-36.0); Monocytes # (auto) 0.5 10 ^3/uL (0-1.3); Monocytes % (auto) 10.6 % (0.0-12.0); Neutrophils # (auto) 3.4 10 ^3/uL (1.6-8.6); Neutrophils % (auto) 74.4 % (37.0-80.0); Nucleated Red Blood Cells % 0.4 %; Red Blood Cells 1.51 10^6/uL (4.0-5.20); Red Cell Distribution Width 16.8 % (11.8-14.3); White Blood Cell 4.6 10^3/uL (4.4-10.8)
[2021-03-20 09:19] LABS: Hemoglobin 4.4 g/dL (12.2-16.2)
[2021-03-20] MEDS: Pro-Stat SF 30ml Vanilla GT SCH ×2 (10:00→22:00)
[2021-03-20] MEDS: ASPirin 81 mg TAB PO SCH (10:21)
[2021-03-20] MEDS: PANTOPRAZOLE 40 MG/10 ML VIAL INJ IV SCH ×2 (10:21→22:03)
[2021-03-20] MEDS: LEVOTHYROXINE SODIUM 100 MCG/5 ML INJ IV SCH (10:21)
[2021-03-20] MEDS ORDERED: SODIUM CHL 0.9% 1000 ML BAG XX ONE (10:45)
[2021-03-20 11:36] LABS: Hematocrit 13.1 % (36.0-46.0)
[2021-03-20 11:53] LABS: Hemoglobin 4.3 g/dL (12.2-16.2)
[2021-03-20] MEDS ORDERED: PHYTONADIONE (VIT K)10 MG/ML 1ML VIAL SUBCUT ONE (12:30)
[2021-03-20 15:37] LABS: Hemoglobin 8.2 g/dL (12.2-16.2)
[2021-03-20 15:39] LABS: Hematocrit 24.3 % (36.0-46.0)
[2021-03-20] MEDS ORDERED: VANCOMYCIN 500 MG in D5W 5% 100 ML IV ONE (16:00)
[2021-03-20] MEDS ORDERED: hydrALAZINE HCL 20 MG/ML VL IV PRN (17:00)
[2021-03-20] MEDS ORDERED: LABETALOL HCL 5 MG/ML 4ML SYRINGE IV PRN (19:30)
[2021-03-20] MEDS ORDERED: EPOETIN ALFA-EPBX 10,000 UNIT/1ML VIAL SC ONE (21:00)
[2021-03-20] MEDS: NOREPINEPHRINE 8 MG/250ML KIT 250 ML IV SCH (21:00)
[2021-03-20] MEDS: fentaNYL Drip 2500mCg/250mlNS 250 ML IV SCH (21:58)
[2021-03-20] MEDS: ATORVASTATIN 20 MG TAB PO SCH (22:00)
[2021-03-21] VITALS (100 sets, daily range): BP systolic 90–200; BP diastolic 42–134
[2021-03-21 04:32] LABS: Potassium 3.2 mmol/L (3.5-5.1)
[2021-03-21 04:37] LABS: BUN/Creatinine Ratio 20.2; Calcium 7.8 mg/dL (8.5-10.1)
[2021-03-21 04:55] LABS: Basophils # (auto) 0.1 10 ^3/uL (0-0.2); Hemoglobin 7.3 g/dL (12.2-16.2); Lymphocytes # (auto) 0.8 10 ^3/uL (0.4-5.4); Monocytes # (auto) 0.7 10 ^3/uL (0-1.3); Nucleated Red Blood Cells % 0.1 %; Red Cell Distribution Width 18.7 % (11.8-14.3); White Blood Cell 6.7 10^3/uL (4.4-10.8)
[2021-03-21 04:58] LABS: Basophils % (auto) 1.2 % (0.0-2.0); Eosinophils # (auto) 0.5 10 ^3/uL (0-0.8); Hematocrit 21.5 % (36.0-46.0); Mean Corpuscular Hgb Conc. 34.2 g/dL (32.0-36.0); Mean Corpuscular Volume 84.9 fL (80.0-100.0); Monocytes % (auto) 10.8 % (0.0-12.0); Neutrophils # (auto) 4.6 10 ^3/uL (1.6-8.6); Red Blood Cells 2.53 10^6/uL (4.0-5.20)
[2021-03-21] MEDS: MEROPENEM 1GM IVPB 100 ML IV SCH ×2 (05:17→16:19)
[2021-03-21] MEDS: InsuLIN REG 1unit/0.01ml Soln (100units/ml) SC SCH ×3 (06:00→18:00)
[2021-03-21] MEDS: ACCU-CHEK COMFORT CURVE STRIP VI SCH ×3 (06:08→18:13)
[2021-03-21] MEDS: Pro-Stat SF 30ml Vanilla GT SCH ×2 (08:45→22:00)
[2021-03-21] MEDS: PANTOPRAZOLE 40 MG/10 ML VIAL INJ IV SCH ×2 (09:49→22:09)
[2021-03-21] MEDS: LEVOTHYROXINE SODIUM 100 MCG/5 ML INJ IV SCH (09:50)
[2021-03-21] MEDS: ASPirin 81 mg TAB PO SCH (09:51)
[2021-03-21] MEDS: NOREPINEPHRINE 8 MG/250ML KIT 250 ML IV SCH (11:31)
[2021-03-21] MEDS: PROPOFOL 100 ML IV SCH (20:30)
[2021-03-21] MEDS: fentaNYL Drip 2500mCg/250mlNS 250 ML IV SCH (21:43)
[2021-03-21] MEDS: ATORVASTATIN 20 MG TAB PO SCH (22:00)
[2021-03-22] VITALS (102 sets, daily range): BP systolic 88–153; BP diastolic 42–114
[2021-03-22] MEDS: ACCU-CHEK COMFORT CURVE STRIP VI SCH ×5 (00:01→23:52)
[2021-03-22] MEDS: PROPOFOL 100 ML IV SCH (02:05)
[2021-03-22 04:20] LABS: Basophils # (auto) 0.1 10 ^3/uL (0-0.2); Eosinophils # (auto) 0.5 10 ^3/uL (0-0.8); Lymphocytes # (auto) 0.6 10 ^3/uL (0.4-5.4); Monocytes # (auto) 0.5 10 ^3/uL (0-1.3); Neutrophils # (auto) 4.4 10 ^3/uL (1.6-8.6); Nucleated Red Blood Cells % 0.1 %; White Blood Cell 6.1 10^3/uL (4.4-10.8)
[2021-03-22 04:29] LABS: Basophils % (auto) 1.1 % (0.0-2.0); Eosinophils % (auto) 8.6 % (0.0-7.0); Hematocrit 20.3 % (36.0-46.0); Mean Corpuscular Hemoglobin 28.7 pg (28.0-32.0); Mean Corpuscular Hgb Conc. 34.1 g/dL (32.0-36.0); Mean Corpuscular Volume 84.1 fL (80.0-100.0); Monocytes % (auto) 8.9 % (0.0-12.0); Neutrophils % (auto) 72.4 % (37.0-80.0); Red Blood Cells 2.41 10^6/uL (4.0-5.20); Red Cell Distribution Width 18.7 % (11.8-14.3)
[2021-03-22 04:35] LABS: Potassium 3.3 mmol/L (3.5-5.1)
[2021-03-22 04:39] LABS: Hemoglobin 6.9 g/dL (12.2-16.2)
[2021-03-22 04:47] LABS: Albumin 1.9 g/dL (3.4-5.0); BUN/Creatinine Ratio 19.8; Bilirubin, Total 0.6 mg/dL (0.2-1.0); Total Protein 5.1 g/dL (6.4-8.2)
[2021-03-22] MEDS: MEROPENEM 1GM IVPB 100 ML IV SCH ×2 (04:50→17:06)
[2021-03-22] MEDS: InsuLIN REG 1unit/0.01ml Soln (100units/ml) SC SCH ×5 (06:00→23:53)
[2021-03-22] MEDS: Pro-Stat SF 30ml Vanilla GT SCH ×2 (09:24→21:53)
[2021-03-22] MEDS: ASPirin 81 mg TAB PO SCH (09:25)
[2021-03-22] MEDS: LEVOTHYROXINE SODIUM 100 MCG/5 ML INJ IV SCH (09:27)
[2021-03-22] MEDS: PANTOPRAZOLE 40 MG/10 ML VIAL INJ IV SCH ×2 (09:27→21:53)
[2021-03-22] MEDS: NOREPINEPHRINE 8 MG/250ML KIT 250 ML IV SCH (12:00)
[2021-03-22] MEDS ORDERED: VANCOMYCIN 500 MG in D5W 5% 100 ML IV ONE (20:00)
[2021-03-22] MEDS: ATORVASTATIN 20 MG TAB PO SCH (21:53)
[2021-03-22] MEDS: DEXTROSE (50%) 50ML SYRG IV PRN (23:53)
[2021-03-23] VITALS (102 sets, daily range): BP systolic 88–152; BP diastolic 40–78
[2021-03-23] MEDS: InsuLIN REG 1unit/0.01ml Soln (100units/ml) SC SCH ×3 (06:00→18:00)
[2021-03-23 06:21] LABS: Hemoglobin 7.7 g/dL (12.2-16.2); Mean Corpuscular Hemoglobin 29.2 pg (28.0-32.0)
[2021-03-23 06:22] LABS: Hematocrit 22.6 % (36.0-46.0); Mean Corpuscular Hgb Conc. 34.2 g/dL (32.0-36.0); Mean Corpuscular Volume 85.4 fL (80.0-100.0); Red Blood Cells 2.64 10^6/uL (4.0-5.20); White Blood Cell 7.3 10^3/uL (4.4-10.8)
[2021-03-23 06:34] LABS: BUN/Creatinine Ratio 17.1; Potassium 3.5 mmol/L (3.5-5.1)
[2021-03-23 06:46] LABS: Basophils % (manual) 0 (0.0-2.0); Blast Cells 0; Metamyelocytes % 0; Myelocytes % 0; Promyelocytes % 0; Reactive Lymphocytes 0
[2021-03-23] MEDS: ACCU-CHEK COMFORT CURVE STRIP VI SCH ×3 (06:51→18:02)
[2021-03-23 07:26] LABS: Band Neutrophils % (manual) 17; Eosinophils % (manual) 9 (0-7); Lymphocytes % (manual) 22 (10.0-50.0); Monocytes % (manual) 5 (0-12)
[2021-03-23] MEDS: Pro-Stat SF 30ml Vanilla GT SCH ×2 (10:00→22:00)
[2021-03-23] MEDS: ASPirin 81 mg TAB PO SCH (10:00)
[2021-03-23] MEDS: PANTOPRAZOLE 40 MG/10 ML VIAL INJ IV SCH ×2 (10:03→22:35)
[2021-03-23] MEDS: LEVOTHYROXINE SODIUM 100 MCG/5 ML INJ IV SCH (10:03)
[2021-03-23] MEDS: NOREPINEPHRINE 8 MG/250ML KIT 250 ML IV SCH (11:49)
[2021-03-23] MEDS: fentaNYL Drip 2500mCg/250mlNS 250 ML IV SCH ×2 (14:30→23:48)
[2021-03-23] MEDS: MEROPENEM 1GM IVPB 100 ML IV SCH (18:02)
[2021-03-23] MEDS: PROPOFOL 100 ML IV SCH (20:30)
[2021-03-23] MEDS: ATORVASTATIN 20 MG TAB PO SCH (22:00)
[2021-03-24] VITALS (98 sets, daily range): BP systolic 86–147; BP diastolic 33–76
[2021-03-24] MEDS: PROPOFOL 100 ML IV SCH (02:00)
[2021-03-24 02:31] LABS: Hemoglobin 7.4 g/dL (12.2-16.2); Mean Corpuscular Volume 86.5 fL (80.0-100.0)
[2021-03-24 02:33] LABS: Hematocrit 22.1 % (36.0-46.0); Mean Corpuscular Hemoglobin 29.1 pg (28.0-32.0); Mean Corpuscular Hgb Conc. 33.6 g/dL (32.0-36.0); Red Blood Cells 2.55 10^6/uL (4.0-5.20); Red Cell Distribution Width 18.3 % (11.8-14.3); White Blood Cell 8.4 10^3/uL (4.4-10.8)
[2021-03-24 02:43] LABS: Albumin 1.8 g/dL (3.4-5.0); BUN/Creatinine Ratio 16.5; Calcium 7.7 mg/dL (8.5-10.1); Potassium 3.4 mmol/L (3.5-5.1)
[2021-03-24 02:46] LABS: Bilirubin, Total 0.6 mg/dL (0.2-1.0); Total Protein 5.2 g/dL (6.4-8.2)
[2021-03-24 02:47] LABS: Basophils % (manual) 0 (0.0-2.0); Blast Cells 0; Metamyelocytes % 0; Promyelocytes % 0; Reactive Lymphocytes 0
[2021-03-24 03:45] LABS: Lymphocytes % (manual) 20 (10.0-50.0); Monocytes % (manual) 10 (0-12); Myelocytes % 1
[2021-03-24 03:46] LABS: Band Neutrophils % (manual) 20; Eosinophils % (manual) 9 (0-7)
[2021-03-24] MEDS: InsuLIN REG 1unit/0.01ml Soln (100units/ml) SC SCH ×4 (06:00→17:44)
[2021-03-24] MEDS: ACCU-CHEK COMFORT CURVE STRIP VI SCH ×4 (06:00→17:44)
[2021-03-24] MEDS: Pro-Stat SF 30ml Vanilla GT SCH ×2 (09:39→21:58)
[2021-03-24] MEDS: PANTOPRAZOLE 40 MG/10 ML VIAL INJ IV SCH ×2 (09:40→21:59)
[2021-03-24] MEDS: ASPirin 81 mg TAB PO SCH (09:41)
[2021-03-24] MEDS: LEVOTHYROXINE SODIUM 100 MCG/5 ML INJ IV SCH (09:42)
[2021-03-24] MEDS: NOREPINEPHRINE 8 MG/250ML KIT 250 ML IV SCH (12:16)
[2021-03-24] MEDS: DEXTROSE (50%) 50ML SYRG IV PRN ×2 (17:43→23:55)
[2021-03-24] MEDS: MEROPENEM 1GM IVPB 100 ML IV SCH (18:10)
[2021-03-24] MEDS: AMINO ACID ELECTROLYTE W/ CALC 1,000 ML IV SCH ×2 (21:34→21:45)
[2021-03-24] MEDS: ATORVASTATIN 20 MG TAB PO SCH (21:59)
[2021-03-24] MEDS: fentaNYL Drip 2500mCg/250mlNS 250 ML IV SCH (21:59)
[2021-03-25] VITALS (103 sets, daily range): BP systolic 81–164; BP diastolic 40–87
[2021-03-25 03:29] LABS: Hemoglobin 7.4 g/dL (12.2-16.2)
[2021-03-25 03:31] LABS: Hematocrit 22.5 % (36.0-46.0)
[2021-03-25 03:46] LABS: Anion Gap 7 (5-15); Aspartate Aminotransferase 13 U/L (15-37); Blood Urea Nitrogen 51 mg/dL (7-18); Calcium 7.7 mg/dL (8.5-10.1); Carbon Dioxide 28 mmol/L (21-32); Chloride 109 mmol/L (98-107); Glucose 81 mg/dL (74-106); Potassium 3.6 mmol/L (3.5-5.1); Sodium 144 mmol/L (136-145)
[2021-03-25 03:52] LABS: Alanine Aminotransferase < 6 U/L (13-56); Alkaline Phosphatase 94 U/L (45-117); Bilirubin, Total 0.6 mg/dL (0.2-1.0); GFR African American 19 mL/min; GFR Non-African American 16 mL/min; Phosphorus 6.1 mg/dL (2.5-4.90); Pre Albumin 6.5 mg/dL (20.0-40.0); Total Protein 5.5 g/dL (6.4-8.2); Triglycerides 106 mg/dL (< 150)
[2021-03-25 03:53] LABS: % Iron Saturation 31.4 % (15-50)
[2021-03-25] MEDS: PROPOFOL 100 ML IV SCH ×2 (05:00→22:04)
[2021-03-25] MEDS: ACCU-CHEK COMFORT CURVE STRIP VI SCH ×5 (06:00→23:44)
[2021-03-25] MEDS: InsuLIN REG 1unit/0.01ml Soln (100units/ml) SC SCH ×5 (06:00→23:43)
[2021-03-25] MEDS ORDERED: SODIUM CHL 0.9% 1000 ML BAG XX ONE (07:00)
[2021-03-25] MEDS: Pro-Stat SF 30ml Vanilla GT SCH ×2 (09:27→21:13)
[2021-03-25] MEDS: PANTOPRAZOLE 40 MG/10 ML VIAL INJ IV SCH ×2 (09:29→21:13)
[2021-03-25] MEDS: ASPirin 81 mg TAB PO SCH (09:31)
[2021-03-25] MEDS: LEVOTHYROXINE SODIUM 100 MCG/5 ML INJ IV SCH (09:31)
[2021-03-25] MEDS ORDERED: DEXTROSE (50%) 50ML SYRG IV PRN (10:30)
[2021-03-25] MEDS ORDERED: Nepro With Carb Steady 1 Liter Bottle GT SCH (10:30)
[2021-03-25] MEDS ORDERED: HEPARIN SODIUM (PORCINE) 5000 UNITS/ML 1ML VIAL ONE (11:16)
[2021-03-25] MEDS: NOREPINEPHRINE 8 MG/250ML KIT 250 ML IV SCH (12:00)
[2021-03-25 14:09] LABS: INR 1.21 (0.9-1.15); Partial Thromboplastin Time 38.8 sec (23.6-33.0)
[2021-03-25] MEDS ORDERED: VANCOMYCIN 500 MG in D5W 5% 100 ML IV ONE (16:00)
[2021-03-25] MEDS ORDERED: TPN PER PHARMACY 0 ML IV SCH ×2 (16:15→22:00)
[2021-03-25] MEDS: MEROPENEM 1GM IVPB 100 ML IV SCH (18:00)
[2021-03-25] MEDS ORDERED: AMINO ACID INFUSION IN D10W 1,000 ML IV NR (20:00)
[2021-03-25] MEDS ORDERED: TPN PER PHARMACY IV NR ×5 (20:00)
[2021-03-25] MEDS: ATORVASTATIN 20 MG TAB PO SCH (21:12)
[2021-03-25] MEDS: fentaNYL Drip 2500mCg/250mlNS 250 ML IV SCH (23:50)
[2021-03-26] VITALS (104 sets, daily range): BP systolic 87–209; BP diastolic 40–96
[2021-03-26] MEDS: ACCU-CHEK COMFORT CURVE STRIP VI SCH ×4 (05:32→23:18)
[2021-03-26] MEDS: InsuLIN REG 1unit/0.01ml Soln (100units/ml) SC SCH ×4 (05:33→23:18)
[2021-03-26 05:38] LABS: Basophils # (auto) 0.1 10 ^3/uL (0-0.2); Eosinophils # (auto) 0.6 10 ^3/uL (0-0.8); Hematocrit 20.5 % (36.0-46.0); Mean Corpuscular Volume 87.8 fL (80.0-100.0); Nucleated Red Blood Cells % 0.1 %; White Blood Cell 8.4 10^3/uL (4.4-10.8)
[2021-03-26 05:46] LABS: Basophils % (auto) 0.9 % (0.0-2.0); Eosinophils % (auto) 7.2 % (0.0-7.0); Lymphocytes # (auto) 1.3 10 ^3/uL (0.4-5.4); Lymphocytes % (auto) 15.6 % (10.0-50.0); Mean Corpuscular Hemoglobin 29.2 pg (28.0-32.0); Mean Corpuscular Hgb Conc. 33.2 g/dL (32.0-36.0); Monocytes # (auto) 0.7 10 ^3/uL (0-1.3); Neutrophils # (auto) 5.8 10 ^3/uL (1.6-8.6); Neutrophils % (auto) 68.3 % (37.0-80.0); Red Blood Cells 2.34 10^6/uL (4.0-5.20); Red Cell Distribution Width 18.3 % (11.8-14.3)
[2021-03-26 05:54] LABS: Hemoglobin 6.8 g/dL (12.2-16.2)
[2021-03-26 06:02] LABS: Albumin 1.9 g/dL (3.4-5.0); Anion Gap 7 (5-15); Blood Urea Nitrogen 38 mg/dL (7-18); Calcium 7.5 mg/dL (8.5-10.1); Carbon Dioxide 29 mmol/L (21-32); Chloride 108 mmol/L (98-107); Glucose 106 mg/dL (74-106); Magnesium 2.6 mg/dL (1.6-2.6); Potassium 3.3 mmol/L (3.5-5.1); Sodium 144 mmol/L (136-145)
[2021-03-26 06:05] LABS: Alanine Aminotransferase < 6 U/L (13-56); Alkaline Phosphatase 85 U/L (45-117); Aspartate Aminotransferase 10 U/L (15-37); BUN/Creatinine Ratio 14.9; Bilirubin, Total 0.6 mg/dL (0.2-1.0); GFR African American 25 mL/min; GFR Non-African American 20 mL/min; Phosphorus 4.8 mg/dL (2.5-4.90); Total Protein 5.3 g/dL (6.4-8.2)
[2021-03-26] MEDS: ASPirin 81 mg TAB PO SCH (09:22)
[2021-03-26] MEDS: PANTOPRAZOLE 40 MG/10 ML VIAL INJ IV SCH ×2 (09:22→21:59)
[2021-03-26] MEDS: LEVOTHYROXINE SODIUM 100 MCG/5 ML INJ IV SCH (09:22)
[2021-03-26] MEDS: Pro-Stat SF 30ml Vanilla GT SCH ×2 (09:24→21:59)
[2021-03-26 09:30] LABS: Basophils # (auto) 0.1 10 ^3/uL (0-0.2); Basophils % (auto) 1.3 % (0.0-2.0); Eosinophils # (auto) 0.8 10 ^3/uL (0-0.8); Eosinophils % (auto) 8.8 % (0.0-7.0); Hematocrit 22.6 % (36.0-46.0); Hemoglobin 7.3 g/dL (12.2-16.2); Lymphocytes # (auto) 1.4 10 ^3/uL (0.4-5.4); Lymphocytes % (auto) 15.5 % (10.0-50.0); Mean Corpuscular Hemoglobin 28.5 pg (28.0-32.0); Mean Corpuscular Hgb Conc. 32.2 g/dL (32.0-36.0); Mean Corpuscular Volume 88.5 fL (80.0-100.0); Monocytes # (auto) 0.7 10 ^3/uL (0-1.3); Monocytes % (auto) 7.7 % (0.0-12.0); Neutrophils # (auto) 6.2 10 ^3/uL (1.6-8.6); Neutrophils % (auto) 66.7 % (37.0-80.0); Nucleated Red Blood Cells % 0.1 %; Red Blood Cells 2.55 10^6/uL (4.0-5.20); Red Cell Distribution Width 18.6 % (11.8-14.3); White Blood Cell 9.4 10^3/uL (4.4-10.8)
[2021-03-26] MEDS ORDERED: POTASSIUM CHL 20MEQ/50ML 50 ML IV ONE (10:00)
[2021-03-26] MEDS: NOREPINEPHRINE 8 MG/250ML KIT 250 ML IV SCH (12:00)
[2021-03-26] MEDS: MEROPENEM 1GM IVPB 100 ML IV SCH (17:41)
[2021-03-26] MEDS ORDERED: TPN PER PHARMACY IV NR ×5 (20:00)
[2021-03-26] MEDS: ATORVASTATIN 20 MG TAB PO SCH (22:01)
[2021-03-27] VITALS (77 sets, daily range): BP systolic 80–180; BP diastolic 38–93
[2021-03-27] MEDS: PROPOFOL 100 ML IV SCH (01:30)
[2021-03-27] MEDS: fentaNYL Drip 2500mCg/250mlNS 250 ML IV SCH (01:31)
[2021-03-27] MEDS: ACCU-CHEK COMFORT CURVE STRIP VI SCH ×4 (06:00→23:43)
[2021-03-27] MEDS: InsuLIN REG 1unit/0.01ml Soln (100units/ml) SC SCH ×4 (06:00→23:42)
[2021-03-27 06:26] LABS: Albumin 2.1 g/dL (3.4-5.0); Anion Gap 8 (5-15); Blood Urea Nitrogen 40 mg/dL (7-18); Carbon Dioxide 28 mmol/L (21-32); Chloride 106 mmol/L (98-107); Glucose 70 mg/dL (74-106); Potassium 3.4 mmol/L (3.5-5.1); Sodium 142 mmol/L (136-145)
[2021-03-27 06:32] LABS: Alanine Aminotransferase < 6 U/L (13-56); Alkaline Phosphatase 96 U/L (45-117); Aspartate Aminotransferase 17 U/L (15-37); BUN/Creatinine Ratio 14.6; Bilirubin, Total 0.7 mg/dL (0.2-1.0); GFR African American 23 mL/min; GFR Non-African American 19 mL/min; Magnesium 2.6 mg/dL (1.6-2.6); Phosphorus 4.9 mg/dL (2.5-4.90); Total Protein 5.8 g/dL (6.4-8.2)
[2021-03-27] MEDS ORDERED: POTASSIUM CHL 20MEQ/50ML 50 ML IV ONE (09:45)
[2021-03-27] MEDS: LEVOTHYROXINE SODIUM 100 MCG/5 ML INJ IV SCH (09:48)
[2021-03-27] MEDS: PANTOPRAZOLE 40 MG/10 ML VIAL INJ IV SCH ×2 (09:48→22:11)
[2021-03-27] MEDS: Pro-Stat SF 30ml Vanilla GT SCH ×2 (09:49→22:00)
[2021-03-27] MEDS: ASPirin 81 mg TAB PO SCH (09:49)
[2021-03-27 10:35] LABS: Hemoglobin 8.6 g/dL (12.2-16.2); White Blood Cell 11.6 10^3/uL (4.4-10.8)
[2021-03-27 10:36] LABS: Hematocrit 26.1 % (36.0-46.0); Mean Corpuscular Hemoglobin 29.6 pg (28.0-32.0); Mean Corpuscular Volume 89.6 fL (80.0-100.0); Red Blood Cells 2.91 10^6/uL (4.0-5.20); Red Cell Distribution Width 18.6 % (11.8-14.3)
[2021-03-27 10:39] LABS: Basophils % (manual) 0 (0.0-2.0); Blast Cells 0; Metamyelocytes % 0; Myelocytes % 0; Promyelocytes % 0; Reactive Lymphocytes 0
[2021-03-27 11:17] LABS: Band Neutrophils % (manual) 15; Eosinophils % (manual) 14 (0-7); Lymphocytes % (manual) 14 (10.0-50.0); Monocytes % (manual) 6 (0-12)
[2021-03-27] MEDS: NOREPINEPHRINE 8 MG/250ML KIT 250 ML IV SCH (12:00)
[2021-03-27] MEDS ORDERED: VANCOMYCIN 500 MG in D5W 5% 100 ML IV ONE (16:00)
[2021-03-27] MEDS: MEROPENEM 1GM IVPB 100 ML IV SCH (18:00)
[2021-03-27] MEDS ORDERED: TPN PER PHARMACY IV NR ×5 (20:00)
[2021-03-27] MEDS: ATORVASTATIN 20 MG TAB PO SCH (22:11)
[2021-03-28] VITALS (98 sets, daily range): BP systolic 84–188; BP diastolic 49–167
[2021-03-28] MEDS: PROPOFOL 100 ML IV SCH ×2 (01:40→09:09)
[2021-03-28 05:34] LABS: Chloride 107 mmol/L (98-107); Potassium 3.5 mmol/L (3.5-5.1); Sodium 141 mmol/L (136-145)
[2021-03-28 05:41] LABS: Alanine Aminotransferase < 6 U/L (13-56); Albumin 1.9 g/dL (3.4-5.0); Alkaline Phosphatase 93 U/L (45-117); Anion Gap 7 (5-15); Aspartate Aminotransferase 16 U/L (15-37); BUN/Creatinine Ratio 15.9; Bilirubin, Total 0.7 mg/dL (0.2-1.0); Blood Urea Nitrogen 47 mg/dL (7-18); Calcium 7.8 mg/dL (8.5-10.1); Carbon Dioxide 27 mmol/L (21-32); GFR African American 21 mL/min; GFR Non-African American 17 mL/min; Glucose 124 mg/dL (74-106); Magnesium 2.5 mg/dL (1.6-2.6); Phosphorus 4.2 mg/dL (2.5-4.90); Total Protein 5.6 g/dL (6.4-8.2)
[2021-03-28] MEDS: InsuLIN REG 1unit/0.01ml Soln (100units/ml) SC SCH ×4 (06:00→23:43)
[2021-03-28] MEDS: ACCU-CHEK COMFORT CURVE STRIP VI SCH ×4 (06:20→23:44)
[2021-03-28] MEDS: Pro-Stat SF 30ml Vanilla GT SCH ×2 (07:41→21:09)
[2021-03-28] MEDS: ASPirin 81 mg TAB PO SCH (07:42)
[2021-03-28] MEDS: PANTOPRAZOLE 40 MG/10 ML VIAL INJ IV SCH ×2 (09:08→21:08)
[2021-03-28] MEDS: LEVOTHYROXINE SODIUM 100 MCG/5 ML INJ IV SCH (09:08)
[2021-03-28] MEDS: NOREPINEPHRINE 8 MG/250ML KIT 250 ML IV SCH (12:00)
[2021-03-28] MEDS: fentaNYL Drip 2500mCg/250mlNS 250 ML IV SCH (16:23)
[2021-03-28] MEDS: MEROPENEM 1GM IVPB 100 ML IV SCH ×2 (19:12→22:05)
[2021-03-28] MEDS ORDERED: TPN PER PHARMACY IV NR ×5 (20:00)
[2021-03-28] MEDS: ATORVASTATIN 20 MG TAB PO SCH (21:08)
[2021-03-29] VITALS (103 sets, daily range): BP systolic 80–163; BP diastolic 40–87
[2021-03-29 05:28] LABS: Chloride 107 mmol/L (98-107); Potassium 3.4 mmol/L (3.5-5.1); Sodium 142 mmol/L (136-145)
[2021-03-29 05:34] LABS: Alanine Aminotransferase < 6 U/L (13-56); Albumin 1.8 g/dL (3.4-5.0); Alkaline Phosphatase 94 U/L (45-117); Anion Gap 8 (5-15); Aspartate Aminotransferase 15 U/L (15-37); BUN/Creatinine Ratio 17.7; Bilirubin, Total 0.6 mg/dL (0.2-1.0); Blood Urea Nitrogen 54 mg/dL (7-18); Calcium 7.8 mg/dL (8.5-10.1); Carbon Dioxide 27 mmol/L (21-32); GFR African American 20 mL/min; GFR Non-African American 17 mL/min; Glucose 107 mg/dL (74-106); Magnesium 1.6 mg/dL (1.6-2.6); Total Protein 5.4 g/dL (6.4-8.2)
[2021-03-29] MEDS: InsuLIN REG 1unit/0.01ml Soln (100units/ml) SC SCH ×3 (06:00→18:00)
[2021-03-29] MEDS: ACCU-CHEK COMFORT CURVE STRIP VI SCH ×3 (06:01→18:00)
[2021-03-29 06:59] LABS: Eosinophils % (auto) 10.2 % (0.0-7.0); Hemoglobin 8.3 g/dL (12.2-16.2); Monocytes # (auto) 0.6 10 ^3/uL (0-1.3); White Blood Cell 9.4 10^3/uL (4.4-10.8)
[2021-03-29 07:02] LABS: Basophils # (auto) 0.1 10 ^3/uL (0-0.2); Basophils % (auto) 0.6 % (0.0-2.0); Hematocrit 25.5 % (36.0-46.0); Lymphocytes # (auto) 1.1 10 ^3/uL (0.4-5.4); Lymphocytes % (auto) 11.4 % (10.0-50.0); Mean Corpuscular Hemoglobin 29.1 pg (28.0-32.0); Mean Corpuscular Hgb Conc. 32.5 g/dL (32.0-36.0); Mean Corpuscular Volume 89.4 fL (80.0-100.0); Monocytes % (auto) 6.2 % (0.0-12.0); Neutrophils # (auto) 6.7 10 ^3/uL (1.6-8.6); Neutrophils % (auto) 71.6 % (37.0-80.0); Red Blood Cells 2.85 10^6/uL (4.0-5.20); Red Cell Distribution Width 19.1 % (11.8-14.3)
[2021-03-29] MEDS: fentaNYL Drip 2500mCg/250mlNS 250 ML IV SCH (07:42)
[2021-03-29] MEDS ORDERED: POTASSIUM CHL 20MEQ/50ML 50 ML IV ONE (09:30)
[2021-03-29] MEDS: PANTOPRAZOLE 40 MG/10 ML VIAL INJ IV SCH ×2 (09:50→21:02)
[2021-03-29] MEDS: LEVOTHYROXINE SODIUM 100 MCG/5 ML INJ IV SCH (09:52)
[2021-03-29] MEDS: ASPirin 81 mg TAB PO SCH (09:53)
[2021-03-29] MEDS: Pro-Stat SF 30ml Vanilla GT SCH ×3 (10:00→21:02)
[2021-03-29] MEDS: NOREPINEPHRINE 8 MG/250ML KIT 250 ML IV SCH (12:46)
[2021-03-29] MEDS ORDERED: VANCOMYCIN 500 MG in D5W 5% 100 ML IV ONE (15:00)
[2021-03-29] MEDS: MEROPENEM 1GM IVPB 100 ML IV SCH (17:47)
[2021-03-29] MEDS ORDERED: TPN PER PHARMACY IV NR ×4 (20:00)
[2021-03-29] MEDS: ATORVASTATIN 20 MG TAB PO SCH (21:02)
[2021-03-30] VITALS (101 sets, daily range): BP systolic 89–160; BP diastolic 36–73
[2021-03-30] MEDS: ACCU-CHEK COMFORT CURVE STRIP VI SCH ×4 (00:18→21:07)
[2021-03-30 05:25] LABS: Albumin 1.9 g/dL (3.4-5.0); Magnesium 2.3 mg/dL (1.6-2.6); Potassium 3.2 mmol/L (3.5-5.1)
[2021-03-30 05:31] LABS: BUN/Creatinine Ratio 19.6; Bilirubin, Total 0.6 mg/dL (0.2-1.0); Pre Albumin 6.3 mg/dL (20.0-40.0); Total Protein 5.8 g/dL (6.4-8.2)
[2021-03-30] MEDS: InsuLIN REG 1unit/0.01ml Soln (100units/ml) SC SCH ×4 (06:00→18:00)
[2021-03-30] MEDS: PROPOFOL 100 ML IV SCH ×2 (06:07→15:20)
[2021-03-30] MEDS: fentaNYL Drip 2500mCg/250mlNS 250 ML IV SCH (07:40)
[2021-03-30 08:01] LABS: Basophils # (auto) 0.1 10 ^3/uL (0-0.2); Hemoglobin 7.8 g/dL (12.2-16.2); Mean Corpuscular Volume 91.2 fL (80.0-100.0); Nucleated Red Blood Cells % 0.1 %
[2021-03-30 08:03] LABS: Basophils % (auto) 0.6 % (0.0-2.0); Eosinophils # (auto) 0.9 10 ^3/uL (0-0.8); Eosinophils % (auto) 7.2 % (0.0-7.0); Hematocrit 24.7 % (36.0-46.0); Lymphocytes % (auto) 15.1 % (10.0-50.0); Mean Corpuscular Hemoglobin 28.7 pg (28.0-32.0); Mean Corpuscular Hgb Conc. 31.5 g/dL (32.0-36.0); Neutrophils % (auto) 69.1 % (37.0-80.0); Red Blood Cells 2.71 10^6/uL (4.0-5.20); Red Cell Distribution Width 19.1 % (11.8-14.3); White Blood Cell 13.1 10^3/uL (4.4-10.8)
[2021-03-30] MEDS: LEVOTHYROXINE SODIUM 100 MCG/5 ML INJ IV SCH (10:06)
[2021-03-30] MEDS: PANTOPRAZOLE 40 MG/10 ML VIAL INJ IV SCH ×2 (10:06→21:02)
[2021-03-30] MEDS: ASPirin 81 mg TAB PO SCH (10:07)
[2021-03-30] MEDS: Pro-Stat SF 30ml Vanilla GT SCH ×2 (10:30→21:03)
[2021-03-30] MEDS ORDERED: CLINIMIX PER PHARMACY 0 ML IV SCH (13:00)
[2021-03-30] MEDS: POTASSIUM CHL 20MEQ/50ML 50 ML IV SCH ×2 (13:00→14:00)
[2021-03-30] MEDS ORDERED: AMINO ACID INFUSION IN D10W 1,000 ML IV NR (13:15)
[2021-03-30] MEDS: NOREPINEPHRINE 8 MG/250ML KIT 250 ML IV SCH (14:00)
[2021-03-30] MEDS: MEROPENEM 1GM IVPB 100 ML IV SCH (17:32)
[2021-03-30] MEDS ORDERED: TPN PER PHARMACY IV NR ×5 (20:00)
[2021-03-30] MEDS: ATORVASTATIN 20 MG TAB PO SCH (21:03)
[2021-03-31] VITALS (101 sets, daily range): BP systolic 76–163; BP diastolic 40–70
[2021-03-31] MEDS: ACCU-CHEK COMFORT CURVE STRIP VI SCH ×4 (00:24→18:00)
[2021-03-31 05:40] LABS: Basophils # (auto) 0.1 10 ^3/uL (0-0.2); Hemoglobin 7.3 g/dL (12.2-16.2); Nucleated Red Blood Cells % 0.1 %
[2021-03-31 05:43] LABS: Basophils % (auto) 0.5 % (0.0-2.0); Eosinophils # (auto) 1.1 10 ^3/uL (0-0.8); Eosinophils % (auto) 7.5 % (0.0-7.0); Hematocrit 22.7 % (36.0-46.0); Lymphocytes # (auto) 1.8 10 ^3/uL (0.4-5.4); Lymphocytes % (auto) 12.6 % (10.0-50.0); Mean Corpuscular Volume 90.4 fL (80.0-100.0); Monocytes # (auto) 1.2 10 ^3/uL (0-1.3); Monocytes % (auto) 8.7 % (0.0-12.0); Neutrophils # (auto) 10.2 10 ^3/uL (1.6-8.6); Neutrophils % (auto) 70.7 % (37.0-80.0); Red Blood Cells 2.51 10^6/uL (4.0-5.20); White Blood Cell 14.4 10^3/uL (4.4-10.8)
[2021-03-31] MEDS: InsuLIN REG 1unit/0.01ml Soln (100units/ml) SC SCH ×4 (06:00→18:00)
[2021-03-31 06:13] LABS: Albumin 2.1 g/dL (3.4-5.0); Calcium 8.5 mg/dL (8.5-10.1); Magnesium 2.6 mg/dL (1.6-2.6); Potassium 3.7 mmol/L (3.5-5.1)
[2021-03-31 06:16] LABS: BUN/Creatinine Ratio 22.3; Bilirubin, Total 0.7 mg/dL (0.2-1.0); Total Protein 6.3 g/dL (6.4-8.2)
[2021-03-31] MEDS: MIDODRINE HCL 10 MG TAB PO SCH ×4 (08:48→21:49)
[2021-03-31] MEDS: PANTOPRAZOLE 40 MG/10 ML VIAL INJ IV SCH ×2 (10:19→21:48)
[2021-03-31] MEDS: ASPirin 81 mg TAB PO SCH (10:19)
[2021-03-31] MEDS: LEVOTHYROXINE SODIUM 100 MCG/5 ML INJ IV SCH (10:20)
[2021-03-31] MEDS: Pro-Stat SF 30ml Vanilla GT SCH ×2 (10:21→21:50)
[2021-03-31] MEDS ORDERED: SODIUM CHLORIDE 0.9 % NEB SOLN 3ML NEB ONE (12:44)
[2021-03-31] MEDS: fentaNYL Drip 2500mCg/250mlNS 250 ML IV SCH (13:15)
[2021-03-31] MEDS: NOREPINEPHRINE 8 MG/250ML KIT 250 ML IV SCH (13:29)
[2021-03-31] MEDS: PROPOFOL 100 ML IV SCH (16:36)
[2021-03-31] MEDS: MEROPENEM 1GM IVPB 100 ML IV SCH (18:00)
[2021-03-31] MEDS: ATORVASTATIN 20 MG TAB PO SCH (21:49)
[2021-03-31] MEDS: TPN PER PHARMACY IV NR ×6 (21:50)
[2021-04-01] VITALS (101 sets, daily range): BP systolic 90–143; BP diastolic 40–71
[2021-04-01] MEDS: ACCU-CHEK COMFORT CURVE STRIP VI SCH ×4 (01:02→18:00)
[2021-04-01] MEDS: NOREPINEPHRINE 8 MG/250ML KIT 250 ML IV SCH ×2 (01:59→22:28)
[2021-04-01 04:49] LABS: Hematocrit 21.6 % (36.0-46.0)
[2021-04-01 05:27] LABS: Albumin 2.3 g/dL (3.4-5.0); Calcium 8.2 mg/dL (8.5-10.1); Magnesium 2.5 mg/dL (1.6-2.6)
[2021-04-01 05:30] LABS: BUN/Creatinine Ratio 22.6; Bilirubin, Total 0.7 mg/dL (0.2-1.0); Phosphorus 2.4 mg/dL (2.5-4.90); Total Protein 6.7 g/dL (6.4-8.2)
[2021-04-01] MEDS: InsuLIN REG 1unit/0.01ml Soln (100units/ml) SC SCH ×4 (06:00→18:00)
[2021-04-01] MEDS ORDERED: SODIUM CHL 0.9% 1000 ML BAG XX ONE (07:00)
[2021-04-01] MEDS: PROPOFOL 100 ML IV SCH (07:42)
[2021-04-01] MEDS: ASPirin 81 mg TAB PO SCH (10:00)
[2021-04-01] MEDS ORDERED: VANCOMYCIN 500 MG in D5W 5% 100 ML IV ONE (10:00)
[2021-04-01 10:23] LABS: Basophils # (auto) 0 10 ^3/uL (0-0.2); Eosinophils # (auto) 0.7 10 ^3/uL (0-0.8); Nucleated Red Blood Cells % 0.1 %
[2021-04-01 10:25] LABS: Basophils % (auto) 0.3 % (0.0-2.0); Eosinophils % (auto) 5.2 % (0.0-7.0); Hematocrit 20.5 % (36.0-46.0); Lymphocytes # (auto) 1.8 10 ^3/uL (0.4-5.4); Lymphocytes % (auto) 12.6 % (10.0-50.0); Mean Corpuscular Hemoglobin 30.5 pg (28.0-32.0); Mean Corpuscular Volume 89.6 fL (80.0-100.0); Monocytes # (auto) 1.5 10 ^3/uL (0-1.3); Monocytes % (auto) 10.9 % (0.0-12.0); Red Blood Cells 2.29 10^6/uL (4.0-5.20); Red Cell Distribution Width 18.8 % (11.8-14.3); White Blood Cell 14.1 10^3/uL (4.4-10.8)
[2021-04-01] MEDS: fentaNYL Drip 2500mCg/250mlNS 250 ML IV SCH ×2 (10:30→23:53)
[2021-04-01] MEDS: PANTOPRAZOLE 40 MG/10 ML VIAL INJ IV SCH ×2 (11:33→21:55)
[2021-04-01] MEDS: LEVOTHYROXINE SODIUM 100 MCG/5 ML INJ IV SCH (11:34)
[2021-04-01] MEDS: MIDODRINE HCL 10 MG TAB PO SCH ×2 (12:29→18:35)
[2021-04-01] MEDS: MIDAZOLAM DRIP 50 mg/50mL 50 ML IV SCH ×2 (17:30→19:48)
[2021-04-01] MEDS: MEROPENEM 1GM IVPB 100 ML IV SCH (18:35)
[2021-04-01] MEDS: TPN PER PHARMACY IV NR ×6 (19:49)
[2021-04-01] MEDS ORDERED: TPN PER PHARMACY IV NR ×6 (20:00)
[2021-04-01] MEDS ORDERED: EPOETIN ALFA-EPBX 10,000 UNIT/1ML VIAL SC ONE (21:00)
[2021-04-01] MEDS: ATORVASTATIN 20 MG TAB PO SCH (21:57)
[2021-04-02] VITALS (102 sets, daily range): BP systolic 52–142; BP diastolic -17–67
[2021-04-02] MEDS: ACCU-CHEK COMFORT CURVE STRIP VI SCH ×4 (00:16→17:57)
[2021-04-02 03:47] LABS: Basophils # (auto) 0 10 ^3/uL (0-0.2); Eosinophils # (auto) 0.8 10 ^3/uL (0-0.8); Monocytes # (auto) 1.8 10 ^3/uL (0-1.3); Nucleated Red Blood Cells % 0.1 %
[2021-04-02 03:49] LABS: Basophils % (auto) 0.4 % (0.0-2.0); Eosinophils % (auto) 6.1 % (0.0-7.0); Hematocrit 19.8 % (36.0-46.0); Lymphocytes # (auto) 2.2 10 ^3/uL (0.4-5.4); Lymphocytes % (auto) 17.7 % (10.0-50.0); Mean Corpuscular Hemoglobin 29.6 pg (28.0-32.0); Mean Corpuscular Hgb Conc. 32.7 g/dL (32.0-36.0); Mean Corpuscular Volume 90.4 fL (80.0-100.0); Monocytes % (auto) 14.2 % (0.0-12.0); Neutrophils # (auto) 7.7 10 ^3/uL (1.6-8.6); Neutrophils % (auto) 61.6 % (37.0-80.0); Red Blood Cells 2.19 10^6/uL (4.0-5.20); Red Cell Distribution Width 18.7 % (11.8-14.3); White Blood Cell 12.5 10^3/uL (4.4-10.8)
[2021-04-02 03:59] LABS: Hemoglobin 6.5 g/dL (12.2-16.2)
[2021-04-02 04:05] LABS: Albumin 2.2 g/dL (3.4-5.0); BUN/Creatinine Ratio 24.4; Calcium 8.6 mg/dL (8.5-10.1); Magnesium 1.5 mg/dL (1.6-2.6); Potassium 3.8 mmol/L (3.5-5.1)
[2021-04-02 04:08] LABS: Bilirubin, Total 0.7 mg/dL (0.2-1.0); Phosphorus 2.6 mg/dL (2.5-4.90); Total Protein 6.5 g/dL (6.4-8.2)
[2021-04-02] MEDS: MIDODRINE HCL 10 MG TAB PO SCH ×3 (05:51→17:57)
[2021-04-02] MEDS: InsuLIN REG 1unit/0.01ml Soln (100units/ml) SC SCH ×4 (05:51→17:57)
[2021-04-02] MEDS: ASPirin 81 mg TAB PO SCH (10:00)
[2021-04-02] MEDS ORDERED: MAGNESIUM SULFATE 1GM/100ML 100 ML IV ONE (10:00)
[2021-04-02] MEDS: PANTOPRAZOLE 40 MG/10 ML VIAL INJ IV SCH ×2 (10:05→21:43)
[2021-04-02] MEDS: LEVOTHYROXINE SODIUM 100 MCG/5 ML INJ IV SCH (10:40)
[2021-04-02] MEDS: fentaNYL Drip 2500mCg/250mlNS 250 ML IV SCH (16:45)
[2021-04-02] MEDS: NOREPINEPHRINE 8 MG/250ML KIT 250 ML IV SCH (16:45)
[2021-04-02] MEDS: MIDAZOLAM DRIP 50 mg/50mL 50 ML IV SCH ×2 (16:45→21:42)
[2021-04-02] MEDS: MEROPENEM 1GM IVPB 100 ML IV SCH (17:57)
[2021-04-02] MEDS: TPN PER PHARMACY IV NR ×8 (19:22)
[2021-04-02] MEDS: PROPOFOL 100 ML IV SCH (20:30)
[2021-04-02] MEDS: ATORVASTATIN 20 MG TAB PO SCH (21:43)
[2021-04-03] VITALS (100 sets, daily range): BP systolic 77–215; BP diastolic 35–127
[2021-04-03] MEDS: ACCU-CHEK COMFORT CURVE STRIP VI SCH ×4 (02:06→17:50)
[2021-04-03] MEDS: NOREPINEPHRINE 8 MG/250ML KIT 250 ML IV SCH ×4 (02:08→20:45)
[2021-04-03 04:48] LABS: Basophils # (auto) 0.1 10 ^3/uL (0-0.2); Basophils % (auto) 0.4 % (0.0-2.0); Monocytes # (auto) 1.5 10 ^3/uL (0-1.3); Neutrophils % (auto) 69.1 % (37.0-80.0); Nucleated Red Blood Cells % 0.3 %
[2021-04-03 04:52] LABS: Eosinophils # (auto) 0.8 10 ^3/uL (0-0.8); Eosinophils % (auto) 6.6 % (0.0-7.0); Hematocrit 22.8 % (36.0-46.0); Hemoglobin 7.4 g/dL (12.2-16.2); Lymphocytes # (auto) 1.3 10 ^3/uL (0.4-5.4); Mean Corpuscular Hemoglobin 29.3 pg (28.0-32.0); Mean Corpuscular Hgb Conc. 32.5 g/dL (32.0-36.0); Mean Corpuscular Volume 90.3 fL (80.0-100.0); Monocytes % (auto) 12.9 % (0.0-12.0); Neutrophils # (auto) 8.3 10 ^3/uL (1.6-8.6); Red Blood Cells 2.53 10^6/uL (4.0-5.20); Red Cell Distribution Width 18.2 % (11.8-14.3)
[2021-04-03 05:08] LABS: Potassium 3.9 mmol/L (3.5-5.1)
[2021-04-03] MEDS: MIDODRINE HCL 10 MG TAB PO SCH ×3 (05:17→17:50)
[2021-04-03 05:21] LABS: Albumin 2.4 g/dL (3.4-5.0); BUN/Creatinine Ratio 26.3; Bilirubin, Total 0.8 mg/dL (0.2-1.0); Calcium 8.9 mg/dL (8.5-10.1); Magnesium 2.8 mg/dL (1.6-2.6); Phosphorus 2.9 mg/dL (2.5-4.90); Total Protein 6.9 g/dL (6.4-8.2)
[2021-04-03] MEDS: fentaNYL Drip 2500mCg/250mlNS 250 ML IV SCH (05:54)
[2021-04-03] MEDS: InsuLIN REG 1unit/0.01ml Soln (100units/ml) SC SCH ×4 (06:00→17:50)
[2021-04-03] MEDS ORDERED: SODIUM CHL 0.9% 1000 ML BAG XX ONE (07:00)
[2021-04-03] MEDS: LEVOTHYROXINE SODIUM 100 MCG/5 ML INJ IV SCH (09:29)
[2021-04-03] MEDS: PANTOPRAZOLE 40 MG/10 ML VIAL INJ IV SCH ×2 (09:29→21:02)
[2021-04-03] MEDS: ASPirin 81 mg TAB PO SCH (09:29)
[2021-04-03] MEDS: VASOPRESSIN 50 UNITS in D5W 5% 247.5 ML IV SCH (10:29)
[2021-04-03] MEDS: ALBUMIN 25% 100 ML IV SCH ×2 (10:48→11:47)
[2021-04-03] MEDS ORDERED: PHENYLEPHRINE IV 250 ML IV ONE (10:52)
[2021-04-03] MEDS: PHENYLEPHRINE IV 250 ML IV SCH ×2 (10:55→19:20)
[2021-04-03] MEDS: MEROPENEM 1GM IVPB 100 ML IV SCH (17:50)
[2021-04-03] MEDS: TPN PER PHARMACY IV NR ×8 (19:52)
[2021-04-03] MEDS ORDERED: TPN*HIGH CONC* PER PHARMACY IV NR ×6 (20:00)
[2021-04-03] MEDS ORDERED: VANCOMYCIN 500 MG in D5W 5% 100 ML IV ONE (20:00)
[2021-04-03] MEDS: PROPOFOL 100 ML IV SCH (20:30)
[2021-04-03] MEDS ORDERED: EPOETIN ALFA-EPBX 10,000 UNIT/1ML VIAL SC ONE (21:00)
[2021-04-03] MEDS: NOREPINEPHRINE BITARTRATE 32 MG in SODIUM CHL 0.9% 218 ML IV SCH (22:40)
[2021-04-04] VITALS (101 sets, daily range): BP systolic 86–151; BP diastolic 15–94
[2021-04-04] MEDS: VASOPRESSIN 50 UNITS in D5W 5% 247.5 ML IV SCH (00:49)
[2021-04-04] MEDS: ACCU-CHEK COMFORT CURVE STRIP VI SCH ×5 (00:50→23:44)
[2021-04-04] MEDS: MIDAZOLAM DRIP 50 mg/50mL 50 ML IV SCH ×2 (02:08→23:45)
[2021-04-04] MEDS: PHENYLEPHRINE IV 250 ML IV SCH ×4 (03:40→22:43)
[2021-04-04 04:38] LABS: Basophils # (auto) 0 10 ^3/uL (0-0.2); Lymphocytes # (auto) 1.8 10 ^3/uL (0.4-5.4); Mean Corpuscular Hemoglobin 29.3 pg (28.0-32.0); Mean Corpuscular Hgb Conc. 32.1 g/dL (32.0-36.0); Monocytes # (auto) 1.6 10 ^3/uL (0-1.3); Neutrophils # (auto) 7.2 10 ^3/uL (1.6-8.6)
[2021-04-04 04:40] LABS: Basophils % (auto) 0.4 % (0.0-2.0); Eosinophils # (auto) 0.4 10 ^3/uL (0-0.8); Eosinophils % (auto) 3.2 % (0.0-7.0); Hematocrit 19.7 % (36.0-46.0); Lymphocytes % (auto) 16.5 % (10.0-50.0); Mean Corpuscular Volume 91.2 fL (80.0-100.0); Monocytes % (auto) 14.6 % (0.0-12.0); Neutrophils % (auto) 65.3 % (37.0-80.0); Nucleated Red Blood Cells % 0.6 %; Red Blood Cells 2.16 10^6/uL (4.0-5.20); Red Cell Distribution Width 18.4 % (11.8-14.3)
[2021-04-04 04:58] LABS: Albumin 2.7 g/dL (3.4-5.0); Calcium 8.5 mg/dL (8.5-10.1); Magnesium 1.8 mg/dL (1.6-2.6); Potassium 3.9 mmol/L (3.5-5.1)
[2021-04-04 05:01] LABS: Bilirubin, Total 0.9 mg/dL (0.2-1.0); Phosphorus 2.6 mg/dL (2.5-4.90); Total Protein 6.6 g/dL (6.4-8.2)
[2021-04-04 05:03] LABS: Hemoglobin 6.3 g/dL (12.2-16.2)
[2021-04-04] MEDS: InsuLIN REG 1unit/0.01ml Soln (100units/ml) SC SCH ×5 (05:47→23:43)
[2021-04-04] MEDS: MIDODRINE HCL 10 MG TAB PO SCH ×3 (05:49→18:00)
[2021-04-04] MEDS: PANTOPRAZOLE 40 MG/10 ML VIAL INJ IV SCH ×2 (09:45→21:14)
[2021-04-04] MEDS: LEVOTHYROXINE SODIUM 100 MCG/5 ML INJ IV SCH (09:46)
[2021-04-04] MEDS: ASPirin 81 mg TAB PO SCH (09:46)
[2021-04-04] MEDS: fentaNYL Drip 2500mCg/250mlNS 250 ML IV SCH (14:30)
[2021-04-04] MEDS: MEROPENEM 1GM IVPB 100 ML IV SCH (18:00)
[2021-04-04] MEDS ORDERED: ACETAMINOPHEN IV 1000 MG/100ML (10MG/ML) IV ONE (20:00)
[2021-04-04] MEDS ORDERED: TPN*HIGH CONC* PER PHARMACY IV NR ×7 (20:00)
[2021-04-04] MEDS: PROPOFOL 100 ML IV SCH (20:30)
[2021-04-04] MEDS: NOREPINEPHRINE BITARTRATE 32 MG in SODIUM CHL 0.9% 218 ML IV SCH (21:00)
[2021-04-05] VITALS (42 sets, daily range): BP systolic 80–131; BP diastolic 13–70
[2021-04-05] MEDS: VASOPRESSIN 50 UNITS in D5W 5% 247.5 ML IV SCH (00:28)
[2021-04-05] MEDS: PHENYLEPHRINE IV 250 ML IV SCH (01:41)
[2021-04-05 05:48] LABS: Albumin 2.6 g/dL (3.4-5.0); Calcium 8.5 mg/dL (8.5-10.1); Magnesium 2.6 mg/dL (1.6-2.6); Potassium 4.1 mmol/L (3.5-5.1)
[2021-04-05 05:54] LABS: BUN/Creatinine Ratio 28.5; Bilirubin, Total 1.2 mg/dL (0.2-1.0); Total Protein 7.1 g/dL (6.4-8.2)
[2021-04-05] MEDS: ACCU-CHEK COMFORT CURVE STRIP VI SCH ×2 (06:00→12:00)
[2021-04-05] MEDS: InsuLIN REG 1unit/0.01ml Soln (100units/ml) SC SCH ×2 (06:00→12:00)
[2021-04-05 06:37] LABS: Eosinophils # (auto) 0.1 10 ^3/uL (0-0.8); Red Blood Cells 2.09 10^6/uL (4.0-5.20)
[2021-04-05] MEDS: MIDODRINE HCL 10 MG TAB PO SCH ×2 (06:38→12:00)
[2021-04-05 06:39] LABS: Basophils # (auto) 0.1 10 ^3/uL (0-0.2); Basophils % (auto) 0.5 % (0.0-2.0); Eosinophils % (auto) 1.1 % (0.0-7.0); Lymphocytes % (auto) 20.3 % (10.0-50.0); Mean Corpuscular Hemoglobin 30.2 pg (28.0-32.0); Mean Corpuscular Hgb Conc. 33.2 g/dL (32.0-36.0); Mean Corpuscular Volume 90.9 fL (80.0-100.0); Monocytes # (auto) 1.7 10 ^3/uL (0-1.3); Monocytes % (auto) 16.6 % (0.0-12.0); Neutrophils # (auto) 6.2 10 ^3/uL (1.6-8.6); Neutrophils % (auto) 61.5 % (37.0-80.0); Nucleated Red Blood Cells % 1.5 %; Red Cell Distribution Width 18.8 % (11.8-14.3)
[2021-04-05 06:55] LABS: Hemoglobin 6.3 g/dL (12.2-16.2)
[2021-04-05] MEDS: fentaNYL Drip 2500mCg/250mlNS 250 ML IV SCH (06:58)
[2021-04-05] MEDS: NOREPINEPHRINE BITARTRATE 32 MG in SODIUM CHL 0.9% 218 ML IV SCH (06:58)
[2021-04-05] MEDS: MIDAZOLAM DRIP 50 mg/50mL 50 ML IV SCH (06:59)
[2021-04-05] MEDS: LEVOTHYROXINE SODIUM 100 MCG/5 ML INJ IV SCH (07:35)
[2021-04-05] MEDS: ASPirin 81 mg TAB PO SCH (07:35)
[2021-04-05] MEDS: PANTOPRAZOLE 40 MG/10 ML VIAL INJ IV SCH (07:35)
[2021-04-05] MEDS ORDERED: SODIUM CHLORIDE 0.9 % NEB SOLN 3ML NEB ONE (07:39)
[2021-04-05] MEDS ORDERED: MORPHINE SULFATE INJECTION 2 MG/ML SYRG ONE (16:17)
[2021-04-05] MEDS ORDERED: TPN*HIGH CONC* PER PHARMACY IV NR ×6 (20:00)
[2021-04-05] MEDS ORDERED: TPN PER PHARMACY IV NR ×6 (20:00)
== END 2021-04-05 17:58 | DRG 5 ==
LOC: EDBD 19:17 → ER 19:23 → TELE 23:11 → UNDOADMIN 23:11 → TELE 01-28 00:24 → TELE-EAST 01-28 10:23 → TELE-E-ADS 02-10 23:00 → DOU IN ICU 02-15 10:28
PROVIDERS: ADMIT Internal Medicine; ATTEND Internal Medicine
PROC: 5A1D70Z Performance of Urinary Filtration, Intermittent, Less than 6 Hours Per Day (ICD-10-PCS; 2021-02-02)
PROC: 05HD33Z Insertion of Infusion Device into Right Cephalic Vein, Percutaneous Approach (ICD-10-PCS; 2021-02-04)
PROC: B54MZZA Ultrasonography of Right Upper Extremity Veins, Guidance (ICD-10-PCS; 2021-02-04)
PROC: 5A1D70Z Performance of Urinary Filtration, Intermittent, Less than 6 Hours Per Day (ICD-10-PCS; 2021-02-05)
PROC: 5A1D70Z Performance of Urinary Filtration, Intermittent, Less than 6 Hours Per Day (ICD-10-PCS; 2021-02-08)
PROC: 5A1D70Z Performance of Urinary Filtration, Intermittent, Less than 6 Hours Per Day (ICD-10-PCS; 2021-02-12)
PROC: 5A1955Z Respiratory Ventilation, Greater than 96 Consecutive Hours (ICD-10-PCS; principal; 2021-02-15)
PROC: 0BH17EZ Insertion of Endotracheal Airway into Trachea, Via Natural or Artificial Opening (ICD-10-PCS; 2021-02-15)
PROC: 5A12012 Performance of Cardiac Output, Single, Manual (ICD-10-PCS; 2021-02-15)
PROC: 30233N1 Transfusion of Nonautologous Red Blood Cells into Peripheral Vein, Percutaneous Approach (ICD-10-PCS; 2021-02-15)
PROC: 5A1D70Z Performance of Urinary Filtration, Intermittent, Less than 6 Hours Per Day (ICD-10-PCS; 2021-02-15)
PROC: 5A09357 Assistance with Respiratory Ventilation, Less than 24 Consecutive Hours, Continuous Positive Airway Pressure (ICD-10-PCS; 2021-02-15)
PROC: 06HY33Z Insertion of Infusion Device into Lower Vein, Percutaneous Approach (ICD-10-PCS; 2021-02-15)
PROC: B54CZZA Ultrasonography of Left Lower Extremity Veins, Guidance (ICD-10-PCS; 2021-02-15)
PROC: 30233R1 Transfusion of Nonautologous Platelets into Peripheral Vein, Percutaneous Approach (ICD-10-PCS; 2021-02-16)
PROC: 4B02XTZ Measurement of Cardiac Defibrillator, External Approach (ICD-10-PCS; 2021-02-16)
PROC: 5A1D70Z Performance of Urinary Filtration, Intermittent, Less than 6 Hours Per Day (ICD-10-PCS; 2021-02-17)
PROC: 5A1D70Z Performance of Urinary Filtration, Intermittent, Less than 6 Hours Per Day (ICD-10-PCS; 2021-02-19)
PROC: 5A1D70Z Performance of Urinary Filtration, Intermittent, Less than 6 Hours Per Day (ICD-10-PCS; 2021-02-22)
PROC: 5A1D70Z Performance of Urinary Filtration, Intermittent, Less than 6 Hours Per Day (ICD-10-PCS; 2021-02-26)
PROC: 0B9D8ZX Drainage of Right Middle Lung Lobe, Via Natural or Artificial Opening Endoscopic, Diagnostic (ICD-10-PCS; 2021-02-26)
PROC: 5A1D70Z Performance of Urinary Filtration, Intermittent, Less than 6 Hours Per Day (ICD-10-PCS; 2021-02-28)
PROC: 03HY32Z Insertion of Monitoring Device into Upper Artery, Percutaneous Approach (ICD-10-PCS; 2021-03-03)
PROC: 4A133B1 Monitoring of Arterial Pressure, Peripheral, Percutaneous Approach (ICD-10-PCS; 2021-03-03)
PROC: 4A133J1 Monitoring of Arterial Pulse, Peripheral, Percutaneous Approach (ICD-10-PCS; 2021-03-03)
PROC: 5A1D70Z Performance of Urinary Filtration, Intermittent, Less than 6 Hours Per Day (ICD-10-PCS; 2021-03-04)
PROC: 5A1D70Z Performance of Urinary Filtration, Intermittent, Less than 6 Hours Per Day (ICD-10-PCS; 2021-03-07)
PROC: 5A1D70Z Performance of Urinary Filtration, Intermittent, Less than 6 Hours Per Day (ICD-10-PCS; 2021-03-08)
PROC: 5A1D70Z Performance of Urinary Filtration, Intermittent, Less than 6 Hours Per Day (ICD-10-PCS; 2021-03-11)
PROC: 5A1D70Z Performance of Urinary Filtration, Intermittent, Less than 6 Hours Per Day (ICD-10-PCS; 2021-03-13)
PROC: 5A1D70Z Performance of Urinary Filtration, Intermittent, Less than 6 Hours Per Day (ICD-10-PCS; 2021-03-17)
PROC: 0B110F4 Bypass Trachea to Cutaneous with Tracheostomy Device, Open Approach (ICD-10-PCS; 2021-03-18)
PROC: 0DH63UZ Insertion of Feeding Device into Stomach, Percutaneous Approach (ICD-10-PCS; 2021-03-18)
PROC: 5A1D70Z Performance of Urinary Filtration, Intermittent, Less than 6 Hours Per Day (ICD-10-PCS; 2021-03-20)
PROC: 5A1D70Z Performance of Urinary Filtration, Intermittent, Less than 6 Hours Per Day (ICD-10-PCS; 2021-03-25)
PROC: 5A1D70Z Performance of Urinary Filtration, Intermittent, Less than 6 Hours Per Day (ICD-10-PCS; 2021-03-31)
PROC: 05HF33Z Insertion of Infusion Device into Left Cephalic Vein, Percutaneous Approach (ICD-10-PCS; 2021-04-01)
PROC: B54NZZA Ultrasonography of Left Upper Extremity Veins, Guidance (ICD-10-PCS; 2021-04-01)
PROC: 5A1D70Z Performance of Urinary Filtration, Intermittent, Less than 6 Hours Per Day (ICD-10-PCS; 2021-04-03)
DX: A41.89 Other specified sepsis (principal); R65.21 Severe sepsis with septic shock; J12.82 Pneumonia due to coronavirus disease 2019; E43 Unspecified severe protein-calorie malnutrition; U07.1 COVID-19; G93.1 Anoxic brain damage, not elsewhere classified; I13.2 Hypertensive heart and chronic kidney disease with heart failure and with stage 5 chronic kidney disease, or end stage renal disease; D69.6 Thrombocytopenia, unspecified; J96.01 Acute respiratory failure with hypoxia; J96.02 Acute respiratory failure with hypercapnia; L89.154 Pressure ulcer of sacral region, stage 4; N18.6 End stage renal disease; Z66 Do not resuscitate; D63.1 Anemia in chronic kidney disease; E03.9 Hypothyroidism, unspecified; G89.4 Chronic pain syndrome; J98.11 Atelectasis; E87.5 Hyperkalemia; H57.02 Anisocoria; R13.10 Dysphagia, unspecified; K20.90 Esophagitis, unspecified without bleeding; K29.70 Gastritis, unspecified, without bleeding; K29.80 Duodenitis without bleeding; Z99.11 Dependence on respirator [ventilator] status; I46.9 Cardiac arrest, cause unspecified; I50.42 Chronic combined systolic (congestive) and diastolic (congestive) heart failure; Z95.810 Presence of automatic (implantable) cardiac defibrillator; Z99.2 Dependence on renal dialysis; E11.22 Type 2 diabetes mellitus with diabetic chronic kidney disease; E11.42 Type 2 diabetes mellitus with diabetic polyneuropathy
CPT/HCPCS: 31624; 36415; 36556; 36600; 43246; 70450; 71045; 71275; 80048; 80053; 80061; 80202; 80329; 81001; 82040; 82306; 82565; 82728; 82805; 82962; 83540; 83550; 83605; 83735; 83880; 83970; 84100; 84132; 84443; 84478; 84484; 85007; 85014; 85018; 85025; 85027; 85379; 85610; 85730; 86141; 86706; 86850; 86900; 86901; 86920; 87040; 87070; 87077; 87186; 87205; 87278; 87340; 87426; 87493; 90935; 92950; 93005; 93306; 94003; 94640; 94660; 95819; 96365; 96375; 97110; 97163; 97530; 99291; C9113; G0378; J0131; J0171; J1100; J1642; J1815; J2185; J2250; J2543; J2704; J3430; J3490; J7060; J7131; P9047